=== PATIENT | male | born 1965 | race Caucasian/White ===

== ENCOUNTER 2019-08-20 14:22 | Outpatient (CLI) | payer OTHER, SELFPAY ==
--- NOTE | 2019-08-20 14:42 | ECG_ITS ---
Measurements Intervals [place] Rate: 76 P: 67 [place]: 150 QRS: 70 QRSD: 89 T: 66 QT: 376 QTc: 425 Interpretive Statements SINUS RHYTHM NORMAL ECG Electronically Signed On 08-20-2019 14:51:23 RETAIL MARKETING SPECIALIST by Tre Lemon D.O.
== END 2019-08-20 14:23 | disposition home or self-care (01) ==
PROVIDERS: PCP Internal Medicine; Visit Provider Internal Medicine
DX: I10 Essential (primary) hypertension (principal)
CPT/HCPCS: 93005

== ENCOUNTER 2019-12-05 09:08 | Outpatient (CLI) | payer OTHER, SELFPAY ==
--- NOTE | ~2019-12-05 | NM_ITS ---
EXAMINATION: NM jose stress w perfusion DATE: 12/05/2019 11:58 INDICATION: Atypical chest pain. TECHNIQUE: Rest images were obtained following intravenous administration of 10.5 mCi Tc99m tetrofosm in (Myoview). The patient was infused intravenously with Lexiscan (regadenoson). Then, 32.2 mCi Tc99m tetrofosmin (Myoview) was administered intravenously, and stress images were obtained. Data was anahi nstructed into short axis and horizontal and vertical long axis SPECT images. Gated SPECT images were also obtained. COMPARISON: Chest CT 02/07/2019 FINDINGS: There is no definite reversible or fixed perfusion abnormality to suggest ischemia or infar ction. There is no segmental wall motion abnormality. Left ventricular ejection fraction measures 6 2%. IMPRESSION: 1. No definite ischemia or infarct. 2. Normal left ventricular ejection fraction measuring 62%. Reviewed, dictated and finalized at location A.
--- NOTE | 2019-12-05 09:17 | EST_ITS ---
Patient Info Name: Denny Proctor Age: 54 years : 1965 Gender: Male Exam Date: 12/05/2019 10:25 AM Exam Location: [facility] Stress Patient Status: Outpatient Admit Date: 12/05/2019 Staff Ordering Physician: Addison Remy MD Attending Provider: Adidson Remy MD Exercise Technologist: Tianna Onofre RDCS Exercise Physician: Tre Lemon DO Exam Type: CA stress jose w NM Study Info Indications R07.89 - Other chest pain A regadenoson stress test was performed. Summary 1. 1. Negative lexiscan stress test for ischemic ST changes by ECG criteria. 2. 2. Stable hemodynamics throughout the test. 3. 3. Nuclear scan to follow and will be reported separately. Please correlate with it. 4. 4. Patient informed of the above results. Protocol: Lexiscan Stress ECG Details Stage: REST Duration (min): 5 min : 7 sec HR (bpm): 59 SBP (mmHg): 130 DBP (mmHg): 75 Stage: REST Duration (min): 6 min : 28 sec HR (bpm): 53 SBP (mmHg): 130 DBP (mmHg): 75 Stage: REST Duration (min): 24 min : 25 sec HR (bpm): 52 SBP (mmHg): 130 DBP (mmHg): 75 Stage: STAGE 1 Duration (min): 1 min : 0 sec HR (bpm): 53 SBP (mmHg): 107 DBP (mmHg): 79 Stage: RECOVERY Duration (min): 1 min : 0 sec HR (bpm): 78 SBP (mmHg): 107 DBP (mmHg): 79 Stage: RECOVERY Duration (min): 2 min : 0 sec HR (bpm): 76 SBP (mmHg): 116 DBP (mmHg): 73 Stage: RECOVERY Duration (min): 3 min : 0 sec HR (bpm): 69 SBP (mmHg): 116 DBP (mmHg): 67 Stage: RECOVERY Duration (min): 3 min : 4 sec HR (bpm): 70 SBP (mmHg): 116 DBP (mmHg): 67 Rest HR: 52 bpm Peak HR: 78 bpm Rest Sys BP: 130 mmHg Peak Sys BP: 116 mmHg Max Pred HR: 165 bpm % Max Pred HR: 47 % Target HR: 140 bpm Max RPP: 9,048 bpm*mmHg Termination Reason: Completed protocol Cardiac Symptoms: Shortness of breath Total Time: 1 min : 0 sec Rest Armando BP: 75 mmHg Peak Armando BP: 73 mmHg Total Dose: 0.4 mg Resting ECG Sinus bradycardia with borderline T wave in lateral leads. Stress ECG No ST changes. Arrhythmias None. Report Signatures
[2019-12-05 09:49] LABS: Mean Corpuscular HGB Conc 34.2 g/dl (32-36); Mean Corpuscular Volume 93.6 fl (80-100); Platelet Count Result 279 k/mm3 (150-375); Red Blood Count 4.06 M/mm3 (4.6-6.20); Red Cell Distribution Width 12.2 % (11.5-14.5); White Blood Count 8.5 K/mm3 (4.5-10.0)
[2019-12-05 10:12] LABS: Iron 80 ug/dL (49-181)
[2019-12-05 10:22] LABS: Percent Iron Saturation 23 % (20-50)
== END 2019-12-05 09:09 | disposition home or self-care (01) ==
PROVIDERS: PCP Internal Medicine; Visit Provider Internal Medicine
DX: E61.1 Iron deficiency (principal); R07.9 Chest pain, unspecified
CPT/HCPCS: 36415; 78452; 82728; 83540; 83550; 85027; 93017; A9502; J2785

== ENCOUNTER 2020-02-22 08:48 | Outpatient (CLI) | payer OTHER, SELFPAY ==
--- NOTE | ~2020-02-22 | MR_ITS ---
EXAMINATION: MR lumbar spine wo/w con EXAM DATE: 02/22/2020 11:00 INDICATION: Spinal cord disease, history of cyst removal from lumbar spine. Neck pain low back pain, left-sided numbness. TECHNIQUE: Multi-sequential, multiplanar MR images of the lumbar spine were obtained without contrast . Sagittal T1, T2, T2 fat saturation images. Axial T2 weighted images. Axial T1 weighted sequence. Patient was then injected with 20 mL Multihance intravenous contrast and reimaged. Postcontrast axi al and sagittal T1-weighted fat saturation sequences were obtained. Comparison is made to prior exami nation from 07/09/2014. FINDINGS: No evidence of prior lumbar surgery, making the thoracic finding most likely sequela from p rior cyst removal, surgery. Mild to moderate disc disease L4-5, mild at L2-3, L3-4 and L5-S1. The michelle tebral bodies are aligned in the AP dimension. The conus medullaris terminates at the L1/2 level and has normal signal intensity and morphology. There are no suspicious marrow signal abnormalities. Par aspinal soft tissue is unremarkable. There are no areas of abnormal enhancement on the post contrast images. Level by level evaluation: T11-12: Disc does not extend beyond the endplate margin. Facet arthropathy: Mild. Neural foraminal stenosis: No stenosis. Central canal stenosis: No stenosis. T12-L1: Disc does not extend beyond the endplate margin. Facet arthropathy: Mild. Neural foraminal stenosis: No stenosis. Central canal stenosis: No stenosis. L1-L2: Disc does not extend beyond the endplate margin. Facet arthropathy: Mild. Neural foraminal stenosis: Mild left. Central canal stenosis: No stenosis. L2-L3: There is a mild diffuse disc bulge. Facet arthropathy: Mild. Neural foraminal stenosis: Mild to moderate left, mild right. Central canal stenosis: Mild. L3-L4: There is a mild to moderate diffuse disc bulge. Facet arthropathy: Moderate right, mild to moderate left. Neural foraminal stenosis: Moderate bilateral. Central canal stenosis: Mild to moderate. L4-L5: There is a moderate to large diffuse disc bulge. Facet arthropathy: Moderate to severe right, moderate left. Neural foraminal stenosis: Moderate bilateral. Central canal stenosis: Moderate, bilateral lateral recess narrowing. L5-S1: There is a mild diffuse disc bulge. Facet arthropathy: Mild to moderate right, mild left. Neural foraminal stenosis: Mild to moderate right, mild left. Central canal stenosis: Mild. Difficult to appreciate any significant interval change compared to prior study. IMPRESSION: 1. No evidence of lumbar surgery. 2. Mild to moderate lumbar spondylosis. Reviewed, dictated and finalized at location A.
--- NOTE | ~2020-02-22 | MR_ITS ---
EXAMINATION: MR cervical spine wo/w con EXAM DATE: 02/22/2020 11:02 INDICATION: Spinal cord disease, history of cyst removal from lumbar spine. Neck pain low back pain, left-sided numbness. TECHNIQUE: Multi-sequential, multiplanar MR images of the cervical spine were obtained without contra st. Axial T2, axial T2 MERGE sequence. Sagittal T1, T2, T2 fat saturation images also obtained. Axi al T1 weighted sequence. Patient was then injected with 20 mL Multihance intravenous contrast and re imaged. Postcontrast axial and sagittal T1-weighted fat saturation sequences were obtained. Comparis on is made to prior examination from 02/03/2018. FINDINGS: There is moderate disc disease at C5-6. The vertebral body and disc heights are otherwise well maintained. The vertebral bodies are aligned in the AP dimension. The cervical spinal cord signa l intensity and intrinsic morphology is normal. Cervicomedullary junction is normal in appearance. Th ere are no suspicious marrow signal abnormalities. Paraspinal soft tissue is unremarkable. There are no areas of abnormal enhancement on the post contrast images. Level by level evaluation: C2-C3: Disc does not extend beyond the endplate margin. Uncovertebral joint arthropathy: Mild left. Facet joint arthropathy: Moderate left, mild right. Neural foraminal stenosis: Mild left. Central canal stenosis: No stenosis. C3-C4: Disc does not extend beyond the endplate margin. Uncovertebral joint arthropathy: None. Facet joint arthropathy: Mild to moderate left, mild right. Neural foraminal stenosis: Mild left. Central canal stenosis: No stenosis. C4-C5: There is a mild diffuse disc bulge. Uncovertebral joint arthropathy: None. Facet joint arthropathy: Mild to moderate bilateral. Neural foraminal stenosis: Mild bilateral. Central canal stenosis: Minimal. C5-C6: There is a mild diffuse disc bulge. Uncovertebral joint arthropathy: Moderate right, mild to moderate left. Facet joint arthropathy: Mild to moderate bilateral. Neural foraminal stenosis: Moderate right, mild to moderate left. Central canal stenosis: Mild. C6-C7: Disc does not extend beyond the endplate margin. Uncovertebral joint arthropathy: Mild bilateral. Facet joint arthropathy: None. Neural foraminal stenosis: No stenosis. Central canal stenosis: No stenosis. C7-T1: Disc does not extend beyond the endplate margin. Uncovertebral joint arthropathy: Mild bilateral. Facet joint arthropathy: Mild bilateral. Neural foraminal stenosis: Mild right. Central canal stenosis: No stenosis. Compared to prior study, the large extrusion from the C5-6 level with cephalad migration has essentia lly resolved. There has been increase in the loss of this disc height. Spondylosis otherwise appear s ignificantly changed. IMPRESSION: 1. Mild to moderate cervical spondylosis. Reviewed, dictated and finalized at location A.
--- NOTE | ~2020-02-22 | MR_ITS ---
EXAMINATION: MR thoracic spine wo/w con EXAM DATE: 02/22/2020 11:02 INDICATION: Spinal cord disease, history of cyst removal from lumbar spine. Neck pain low back pain, left-sided numbness. TECHNIQUE: Multi-sequential, multiplanar MR images of the thoracic spine were obtained without contra st. Sagittal T1, T2, T2 fat saturation, axial T2 weighted images reviewed. Axial T1 weighted sequenc e. Patient was then injected with 20 mL Multihance intravenous contrast and reimaged. Postcontrast axial and sagittal T1-weighted fat saturation sequences were obtained. There are no prior studies for comparison. Correlation was made with cervical and lumbar spines same date. FINDINGS: The thoracic spinal cord has some coarse alteration, deviates posteriorly at the T2 and T3 levels. At this level there is flow related signal within the CSF anterior to the spinal cord making arachnoid cyst unlikely. There is abnormal increased T2 signal within the cord centrally posterior to T3 and T4, where the cord does appear to be somewhat flattened, abnormal morphology. No expansion to suggest acute cord edema. On the postcontrast images, there is posterior epidural enhancement at the T3-4 level for about 2 cm segment. Overall, suspect that this is the location of patient's reported prior spinal canal cyst removal, and some postoperative scarring causing the enhancement. Dural rent or tear can also cause cord deviation, abnormal signal. There is mild diffuse thoracic disc disease. At T6-7 there is a small to moderate-sized very focal ri ght central protrusion/extrusion. There is small right central disc protrusion at T7-8 and small cent ral protrusion at T8-9. Spinal canal is only mildly narrowed at any given level. No more than mild th oracic neural foraminal stenosis. There is mild diffuse thoracic facet arthropathy. Paraspinal soft t issue is unremarkable. IMPRESSION: 1. Upper thoracic spinal cord course posterior deviation, mild flattening, some abnormal cord signal , likely location of prior canal cyst removal, although history states that was in the lumbar region. Can't exclude dural rent. 2. Small midthoracic protrusions, mild spondylosis overall. Reviewed, dictated and finalized at location A. IMPRESSION: 1. Upper thoracic spinal cord course posterior deviation, mild flattening, almas e abnormal cord signal, likely location of prior canal cyst removal, although h istory states that was in the lumbar region. Can't exclude dural rent. 2. Small midthoracic protrusions, mild spondylosis overall.
[2020-02-22 09:19] LABS: Estimated Glomerular Filt Rate > 60
== END 2020-02-22 08:49 | disposition home or self-care (01) ==
PROVIDERS: PCP Internal Medicine; Visit Provider Internal Medicine
DX: G95.9 Disease of spinal cord, unspecified (principal); M47.814 Spondylosis without myelopathy or radiculopathy, thoracic region; M47.816 Spondylosis without myelopathy or radiculopathy, lumbar region; M47.812 Spondylosis without myelopathy or radiculopathy, cervical region
CPT/HCPCS: 36415; 72156; 72157; 72158; A9577

== ENCOUNTER 2020-04-05 09:53 | Outpatient (CLI) | payer OTHER, SELFPAY ==
--- NOTE | ~2020-04-05 | CT_ITS ---
EXAMINATION: CT lung screening DATE: 04/05/2020 10:24 INDICATION: Nicotine dependence TECHNIQUE: Computed tomography (CT) of the chest was performed without intravenous contrast. The dose -length product was 165.85 mGy-cm. Automated exposure control and iterative reconstruction technique were employed. COMPARISON: CT dated 02/07/2019 FINDINGS: Heart size normal. No thoracic lymphadenopathy. There is atherosclerosis. No pleural or per icardial effusion. The upper abdomen is unremarkable. No focal airspace consolidation. No pneumothora x. No suspicious pulmonary nodules or masses. Mild emphysema. Mild thoracic spondylosis. No osteolyti c or osteoblastic lesions. IMPRESSION: 1. Lung-RADS category 1: Negative. Continue annual screening with noncontrast low-dose chest CT in 12 months. Reviewed, dictated and finalized at location A. IMPRESSION: 1. Lung-RADS category 1: Negative. Continue annual screening with noncontrast l ow-dose chest CT in 12 months.
== END 2020-04-05 09:54 | disposition home or self-care (01) ==
PROVIDERS: PCP Internal Medicine; Visit Provider Internal Medicine
DX: Z12.2 Encounter for screening for malignant neoplasm of respiratory organs (principal); Z87.891 Personal history of nicotine dependence
CPT/HCPCS: G0297

== ENCOUNTER 2020-04-07 14:10 | Outpatient (CLI) | payer OTHER, SELFPAY ==
[2020-04-07 14:39] LABS: Basophils Absolute Auto 0.1 K/mm3 (0.0-0.1); Basophils Percent Auto 0.7 % (0.2-1.2); Eosinophils Absolute Auto 0.1 K/mm3 (0-0.3); Eosinophils Percent Auto 1.2 % (0-4.4); Hematocrit 41.1 % (42.0-52.0); Hemoglobin 14.1 g/dL (14.0-18.0); Immature Granulocyte Absolute 0.02 K/mm3 (0.00-0.031); Immature Granulocyte Percent A 0.3 % (0-0.5); Lymphocytes Absolute Auto 2.37 K/mm3 (0.9-3.2); Lymphocytes Percent Auto 32.2 % (18.3-44.2); Mean Corpuscular HGB Conc 34.3 g/dl (32-36); Mean Corpuscular Hemoglobin 31.8 pg (26-34); Mean Corpuscular Volume 92.8 fl (80-100); Mean Platelet Volume 9.5 fl (7.4-10.4); Monocytes Absolute Auto 0.4 K/mm3 (0.1-0.6); Monocytes Percent Auto 5.2 % (2.6-8.5); Neutrophils Absolute Auto 4.5 K/mm3 (1.3-6.7); Neutrophils Percent Auto 60.4 % (45.5-73.1); Platelet Count Result 294 k/mm3 (150-375); Red Blood Count 4.43 M/mm3 (4.6-6.20); Red Cell Distribution Width 12.6 % (11.5-14.5); White Blood Count 7.4 K/mm3 (4.5-10.0)
[2020-04-07 14:47] LABS: Alanine Aminotransferase 14 U/L (4-50); Albumin Level 4.4 g/dL (3.5-5.1); Alkaline Phosphatase 65 U/L (38-126); Anion Gap 8 mmol/L (8-16); Aspartate Amino Transferase 19 U/L (17-59); Bilirubin,Total 0.5 mg/dL (0.2-1.3); Blood Urea Nitrogen 11 mg/dL (9-20); Calcium 9.6 mg/dL (8.4-10.2); Carbon Dioxide 29 mmol/L (22-30); Chloride 102 mmol/L (98-107); Cholesterol 160 mg/dL (0-200); Estimated Glomerular Filt Rate > 60; Glucose 103 mg/dL (75-110); HDL Direct 46 mg/dL; Potassium 4.1 mmol/L (3.4-5.0); Sodium 139 mmol/L (137-145); Triglycerides 120 mg/dL (<150)
[2020-04-07 14:58] LABS: LDL Cholesterol Direct 83 mg/dL
[2020-04-07 14:58] LABS: Add Urine Microscopic? NO; Appearance Urine Clear (Clear); Bilirubin Urine Negative (Negative); Blood Urine Negative (Negative); Color Urine Yellow (Yellow); Glucose Urine UA Negative (Negative); Ketones Urine Negative (Negative); Leukocyte Esterase Ur Negative LEU/UL (NEGATIVE); Nitrate Urine Negative (Negative); Protein Urine Negative (Negative); Specific Grav Ur 1.016 (1.001-1.035); Urobilinogen Urine Negative mg/dL (<2.0)
[2020-04-07 15:17] LABS: Prostate Specific Antigen 0.3 ng/mL (< OR = 4.0); Thyroid Stimulating Hormone 0.993 uIU/mL (0.465-4.680)
[2020-04-07 15:57] LABS: Iron 87 ug/dL (49-181)
[2020-04-07 16:06] LABS: Percent Iron Saturation 25 % (20-50)
[2020-04-07 16:37] LABS: Vitamin D 25 Hydroxy 22.1 ng/mL
== END 2020-04-07 14:11 | disposition home or self-care (01) ==
PROVIDERS: PCP Internal Medicine; Visit Provider Internal Medicine
DX: F41.9 Anxiety disorder, unspecified (principal); I10 Essential (primary) hypertension; E61.1 Iron deficiency; Z79.899 Other long term (current) drug therapy; E55.9 Vitamin D deficiency, unspecified; E78.2 Mixed hyperlipidemia; Z12.5 Encounter for screening for malignant neoplasm of prostate
CPT/HCPCS: 36415; 80053; 80061; 81003; 82306; 82728; 83540; 83550; 84153; 84443; 85025; G0103

== ENCOUNTER 2020-04-22 11:00 | Outpatient (RCR) | payer OTHER, SELFPAY ==
--- NOTE | 2020-03-24 17:03 | PTOPEVAL ---
Thank you for referring Denny Proctor to [facility].? The patient is scheduled to be seen for therapy? 2 x/week for 6 weeks. Please review, sign, date and return this plan of care VINOD. I agree with and certify that the following plan of care is medically necessary. Referring Physician Date Referring Provider: Dr. Deven Pan MD *PT Outpatient Evaluation Start: 03/24/20 14:09 Freq: Status: Active Protocol: Document 03/24/20 14:09 RADHA (Rec: 03/24/20 14:44 [facility] [email or web address]) Therapy Assessment Status Assessment Status Assessment Status Evaluation Outpatient Past Medical History Past Medical History Source of Past Medical History Patient,Recalled from Previous Visit, Confirmed with Patient /Family Neurological History Hx Neurological Disorders No Significant History Cardiovascular History Hx Hypertension Yes Respiratory History Hx Chronic Obstructive Pulmonary Disease Yes (COPD) Musculoskeletal History Hx Arthritis Yes Hx Back Pain Yes Hx Orthopedic Surgery Yes: [facility] Hx Other Musculoskeletal Disorders Yes: back surgery Psychosocial History Hx Anxiety Yes Pain History Has Past Pain Affected Your Daily Life Yes History of Long-Term Prescription Pain Yes Medication Use (Opiates) Evaluation Information Problem Diagnosis neck pain Onset chronic Subjective Information He reports chronic neck pain. Query Text:As Reported By Patient/ He reports increased pain with Family ADL's, lifting, driving, and sleeping. He is performing limited IADL's due to living with family. He performs exercise for his balance problems, but not his neck. Previous Treatments Previous Treatments For This Problem ~1 yr ago for balance Pain Assessment Timing of Pain Assessment Timing of Pain Assessment Assessment Pain Scale Pain Scale Used Numeric (1 - 10) Self Report Pain Assessment Bilateral Neck Reported Pain Level 8 Pain Description Aching,Sharp Pain Frequency Chronic,Continuous Lowest Pain Intensity 4 Greatest Pain Intensity 9 Pain Aggravating Factors Exercise/Activity Pain Behaviors None Pain Relief Interventions Used By Medication Patient Pain Score Pain Score 8: Self Report Cervical and Lumbar ROM Cervical ROM Cervical Flexion (0-60) 50 Query Text:Active in Degrees Cervical Extension (0-70)
--- NOTE | 2020-04-03 11:32 | PCPTNOTE ---
Patient did not show up for scheduled appointment this date.
--- NOTE | 2020-04-14 13:01 | PCPTNOTE ---
pt n/s n/c . Called pt he stated he had stomach issue and forgot to call.
--- NOTE | 2020-04-18 16:56 | PCPTNOTE ---
Patient called & cancelled scheduled appointment this date due to has to watch [email or web address].
--- NOTE | 2020-04-22 11:45 | PTOPEVAL ---
Thank you for referring Denny Proctor to [facility].? Denny has received 6 therapy visits from 03/24/20-04/22/20 to address his chronic neck pain. He demonstrates improved strength, range and pain with normal daily activities. He is indep with his HEP. He has achieved most of his therapy goals at this time. DC skilled therapy services with pt to cont with his HEP. Please review, sign, date and return this plan of care VINOD. I agree with and certify that the following plan of care is medically necessary. Referring Physician Date Referring Provider: Dr. Deven Pan MD *PT Outpatient Evaluation Start: 03/24/20 14:09 Freq: Status: Active Protocol: Document 04/22/20 11:03 CAP (Rec: 04/22/20 11:45 [facility] [id number]) Therapy Assessment Status Assessment Status Assessment Status Re-evaluation/Discharge Note Evaluation Information Problem Diagnosis neck pain Onset chronic Subjective Information REport he had to rebuild a Query Text:As Reported By Patient/ wall and help with lifting and Family carrying boxes for moving a family member this weekend. He reports pain increased to a 10/10 with the increased activities. He reports increased pain with ADL's, lifting, driving, and sleeping. He is performing limited IADL's due to living with family. He is performing his neck exercises daily. Reports improved neck motion with the exercises. REports he is sleeping better without waking due to pain. He is trying to perform good body mechanics with lifting task. Pain Assessment Timing of Pain Assessment Timing of Pain Assessment Re-assessment Pain Scale Pain Scale Used Numeric (1 - 10) Self Report Pain Assessment Bilateral Neck Reported Pain Level 6 Pain Description Aching,Sharp,Tightness Pain Frequency Chronic,Continuous Lowest Pain Intensity 5 Greatest Pain Intensity 10 Pain Aggravating Factors ADL's,Exercise/Activity, Lifting Pain Relief Interventions Used By Medication,TENS Patient Pain Score Pain Score 6: Self Report Cervical and Lumbar ROM Cervical ROM Cervical Flexion (0-60) 52 Query Text:Active in Degrees Cervical Extension (0-70) 60 Query Text:Active in Degrees Cervical
== END 2020-06-10 09:56 | disposition home or self-care (01) ==
LOC: ANHPT 11:00
PROVIDERS: PCP Internal Medicine
DX: M54.2 Cervicalgia (principal)
CPT/HCPCS: 97014; 97110; 97140; 97162; G0283

== ENCOUNTER 2020-07-30 15:43 | Outpatient (CLI) | payer OTHER, SELFPAY ==
--- NOTE | ~2020-07-30 | XR_ITS ---
EXAMINATION: XR shoulder LT min 2V DATE: 07/30/2020 16:54 INDICATION: Left shoulder pain. TECHNIQUE: 4 views of left shoulder were obtained. COMPARISON: None. FINDINGS: Bone alignment is normal. No fracture. There is mild osteoarthritis of glenohumeral joint a nd severe osteoarthritis of acromioclavicular joint. IMPRESSION: 1. Polyarticular osteoarthritis. Reviewed, dictated and finalized at location B. CONTROL SUPERVISOR
--- NOTE | ~2020-07-30 | XR_ITS ---
EXAMINATION:XR_[id number]_CR DATE: 07/30/2020 16:53 INDICATION: Neck pain TECHNIQUE: AP, lateral, and odontoid views of the cervical spine are provided. COMPARISON: 06/09/2015 FINDINGS: Alignment is normal. The odontoid is intact. No fracture is identified. The vertebral body heights are maintained. There is severe loss of intervertebral disc space height at C5-6 with interva l worsening since the comparison examination. Degenerative osteophytes project from the anterior endp lates of multiple vertebral bodies. There is moderate to severe facet and uncovertebral joint osteoar thritis. Prevertebral soft tissues are normal. IMPRESSION: 1. Severe cervical spondylosis at C5-6 with interval worsening. Reviewed, dictated and finalized at location A. LOGY PHYSICIAN
--- NOTE | ~2020-07-30 | XR_ITS ---
EXAMINATION: XR lumbar spine 2-3V DATE: 07/30/2020 16:53 INDICATION: Low back pain TECHNIQUE: Anteroposterior and lateral views of the lumbar spine, and cone-down lateral view of the l umbosacral junction were obtained. COMPARISON: MRI, 02/22/2020 FINDINGS: There is no fracture. The vertebral body heights and alignment are normal. There is moderat e loss of intervertebral disc space height at L4-5 and mild loss of intervertebral disc space height throughout the remainder of the lumbar spine. Small degenerative osteophytes project from the anterio r endplates of multiple vertebral bodies. There is moderate facet osteoarthritis of the lower lumbar spine. Phleboliths are noted in the pelvis. The bowel gas pattern is normal. There is calcified ather osclerosis. IMPRESSION: 1. Mild to moderate lumbar spondylosis without acute findings or significant interval change. Reviewed, dictated and finalized at location A. MOTIVE PORTER IMPRESSION: 1. Mild to moderate lumbar spondylosis without acute findings or significant in terval change.
--- NOTE | ~2020-07-30 | XR_ITS ---
EXAMINATION: XR shoulder RT min 2V DATE: 07/30/2020 16:53 INDICATION: Right shoulder pain. TECHNIQUE: 4 views of right shoulder were obtained. COMPARISON: None. FINDINGS: Bone alignment is normal. No fracture. There is mild osteoarthritis of glenohumeral joint a nd moderate osteoarthritis of acromioclavicular joint. IMPRESSION: 1. Polyarticular osteoarthritis. Reviewed, dictated and finalized at location B. ETIC TRAINER
== END 2020-07-30 15:44 | disposition home or self-care (01) ==
PROVIDERS: PCP Internal Medicine
DX: M50.30 Other cervical disc degeneration, unspecified cervical region (principal); M47.896 Other spondylosis, lumbar region; M47.892 Other spondylosis, cervical region; M19.012 Primary osteoarthritis, left shoulder; M19.011 Primary osteoarthritis, right shoulder
CPT/HCPCS: 72040; 72100; 73030

== ENCOUNTER 2021-03-24 13:51 | Outpatient (CLI) | payer MEDICARE, SELFPAY ==
--- NOTE | ~2021-03-24 | MR_ITS ---
EXAMINATION: MR cervical spine wo con EXAM DATE: 03/24/2021 14:54 INDICATION: Cervical pain. TECHNIQUE: Multi-sequential, multiplanar MR images of the cervical spine were obtained without contra st. Axial T2, axial T2 MERGE sequence. Sagittal T1, T2, T2 fat saturation images also obtained. Th ere is no prior study for comparison. FINDINGS: There is moderate loss of the C5-6 disc space. The vertebral body and disc heights are oth erwise well maintained. The vertebral bodies are aligned in the AP dimension. There are no suspicious marrow signal abnormalities. The spinal cord signal intensity and intrinsic morphology is normal. Ce rvicomedullary junction is normal in appearance. The upper thoracic laminectomies. Paraspinal soft ti ssue is unremarkable. Level by level evaluation: C2-C3: Disc does not extend beyond the endplate margin. Uncovertebral joint arthropathy: None. Facet joint arthropathy: Moderate to severe left, mild right. Neural foraminal stenosis: Mild left. Central canal stenosis: No stenosis. C3-C4: Disc does not extend beyond the endplate margin. Uncovertebral joint arthropathy: None. Facet joint arthropathy: Moderate bilateral. Neural foraminal stenosis: No stenosis. Central canal stenosis: No stenosis. C4-C5: There is a minimal diffuse disc bulge. Uncovertebral joint arthropathy: Mild bilateral. Facet joint arthropathy: Moderate bilateral. Neural foraminal stenosis: No stenosis. Central canal stenosis: No stenosis. C5-C6: There is a mild diffuse disc bulge. Uncovertebral joint arthropathy: Moderate bilateral. Facet joint arthropathy: Mild to moderate bilateral. Neural foraminal stenosis: Moderate to severe right, mild to moderate left. Central canal stenosis: Mild. C6-C7: There is a minimal diffuse disc bulge. Uncovertebral joint arthropathy: Mild to moderate left, mild right. Facet joint arthropathy: Moderate left, mild right. Neural foraminal stenosis: No stenosis. Central canal stenosis: No stenosis. C7-T1: Disc does not extend beyond the endplate margin. Uncovertebral joint arthropathy: Moderate left, mild right. Facet joint arthropathy: Mild bilateral. Neural foraminal stenosis: Mild bilateral. Central canal stenosis: No stenosis. IMPRESSION: 1. Cervical spondylosis with significant C5-6 right neural foraminal stenosis. 2. Less spondylosis other levels. Reviewed, dictated and finalized at location B.
--- NOTE | ~2021-03-24 | MR_ITS ---
EXAMINATION: MR lumbar spine wo [facility] EXAM DATE: 03/24/2021 14:54 INDICATION: Neck, back pain. TECHNIQUE: Multi-sequential, multiplanar MR images of the lumbar spine were obtained without contrast . Sagittal T1, T2, T2 fat saturation images. Axial T2 weighted images. Comparison is made to prior examination from 02/22/2020. FINDINGS: Mild to moderate disc disease L4-5, mild at L2-3, L3-4 and L5-S1. The vertebral bodies are aligned in the AP dimension. The conus medullaris terminates at the L1 level and has normal signal in tensity and morphology. There are no suspicious marrow signal abnormalities. Paraspinal soft tissue is unremarkable. Level by level evaluation: T12-L1: Disc does not extend beyond the endplate margin. Facet arthropathy: Mild. Neural foraminal stenosis: No stenosis. Central canal stenosis: No stenosis. L1-L2: Disc does not extend beyond the endplate margin. Facet arthropathy: Mild. Neural foraminal stenosis: Mild left. Central canal stenosis: No stenosis. L2-L3: There is a mild diffuse disc bulge. Facet arthropathy: Mild to moderate bilateral, could be partially fused on left. Neural foraminal stenosis: Mild to moderate bilateral. Central canal stenosis: Mild. L3-L4: There is a mild to moderate diffuse disc bulge. Facet arthropathy: Moderate right, mild to moderate left. Neural foraminal stenosis: Moderate bilateral. Central canal stenosis: Mild to moderate. L4-L5: There is a moderate to large diffuse disc bulge with annular fissure. Facet arthropathy: Moderate to severe right, moderate left. Neural foraminal stenosis: Moderate bilateral. Central canal stenosis: Moderate to severe, bilateral lateral recess narrowing. L5-S1: There is a mild diffuse disc bulge. Facet arthropathy: Mild to moderate right, mild left. Neural foraminal stenosis: Mild to moderate bilateral. Central canal stenosis: Mild. Difficult to appreciate any significant interval change compared to prior study. IMPRESSION: Moderate lower lumbar spondylosis. Reviewed, dictated and finalized at location B.
== END 2021-03-24 13:52 | disposition home or self-care (01) ==
PROVIDERS: PCP Internal Medicine
DX: M47.813 Spondylosis without myelopathy or radiculopathy, cervicothoracic region (principal); M48.03 Spinal stenosis, cervicothoracic region; M47.815 Spondylosis without myelopathy or radiculopathy, thoracolumbar region; M48.05 Spinal stenosis, thoracolumbar region; M47.817 Spondylosis without myelopathy or radiculopathy, lumbosacral region; M48.07 Spinal stenosis, lumbosacral region
CPT/HCPCS: 72141; 72148

== ENCOUNTER 2021-04-24 13:51 | Outpatient (CLI) | payer MEDICARE, SELFPAY ==
--- NOTE | ~2021-04-24 | US_ITS ---
EXAMINATION: US arterial ankle brachial ind DATE: 04/24/2021 14:40 INDICATION: Peripheral vascular disease TECHNIQUE: Segmental pressures and plethysmographic and Doppler waveforms of the brachial and lower e xtremity arteries were obtained. COMPARISON: None. FINDINGS: Right and left brachial artery pressures of 119 mm Hg and 121 mm Hg, respectively, are concordant (no rmal difference <= 30 mmHg). The right ankle-brachial index (SUZANNE) is 1.17 (normal >= 0.9-1.0). The right great toe-brachial index (TBI) is 0.96 (normal >= 0.65). Arterial Doppler waveforms are biphasic with brisk systolic upstrokes at both the right posterior tibial and dorsalis pedis arteries. The left SUZANNE is 1.17. The left TBI is 1.03. Arterial Doppler waveforms are biphasic with brisk systol ic upstrokes of both the left posterior tibial and dorsalis pedis arteries. IMPRESSION: 1. No significant arterial occlusive disease with normal bilateral ABIs and TBIs. Reviewed, dictated and finalized at location A. IMPRESSION: 1. No significant arterial occlusive disease with normal bilateral ABIs and TBI s.
== END 2021-04-24 13:52 | disposition home or self-care (01) ==
PROVIDERS: PCP Internal Medicine; Visit Provider Internal Medicine
DX: I73.9 Peripheral vascular disease, unspecified (principal)
CPT/HCPCS: 93922

== ENCOUNTER 2021-10-17 12:30 | Outpatient (CLI) | payer MEDICARE, SELFPAY ==
[2021-10-17 13:42] LABS: Cholesterol 182 mg/dL (0-200); HDL Direct 57 mg/dL; Triglycerides 118 mg/dL (<150)
[2021-10-17 13:53] LABS: LDL Cholesterol Direct 84 mg/dL
== END 2021-10-17 12:31 | disposition home or self-care (01) ==
LOC: ANHLAB 12:31
PROVIDERS: PCP Internal Medicine; Visit Provider Internal Medicine
DX: E78.2 Mixed hyperlipidemia (principal)
CPT/HCPCS: 36415; 80061

== ENCOUNTER 2021-10-19 09:34 | Outpatient (CLI) | payer MEDICARE, SELFPAY ==
--- NOTE | ~2021-10-19 | CT_ITS ---
EXAMINATION:CT lung screening DATE: 10/19/2021 10:05 INDICATION: Personal history of nicotine dependence. Current smoker with 44 pack year history. TECHNIQUE: Computed tomography (CT) of the chest was performed without intravenous contrast. Automate d exposure control and iterative reconstruction technique were employed. The dose-length product (DLP ) was 145.24 mGy-cm. COMPARISON: Chest CT 04/05/2020 FINDINGS: There is mild emphysema. There is mild atelectasis bilaterally. No pleural effusion. The he art size is normal. There are coronary artery calcifications. No pericardial effusion. There is mild thoracic spondylosis. IMPRESSION: 1. Lung-RADS category 1: Negative. Continue annual screening with noncontrast low-dose chest CT in 12 months. Reviewed, dictated and finalized at location A. IMPRESSION: 1. Lung-RADS category 1: Negative. Continue annual screening with noncontrast l ow-dose chest CT in 12 months.
== END 2021-10-19 09:35 | disposition home or self-care (01) ==
PROVIDERS: PCP Internal Medicine; Visit Provider Physician Assistant
DX: Z12.2 Encounter for screening for malignant neoplasm of respiratory organs (principal); Z87.891 Personal history of nicotine dependence
CPT/HCPCS: 71271

== ENCOUNTER 2021-12-11 00:04 | Observation (INO) | payer MEDICARE, SELFPAY ==
[2021-12-11] VITALS (27 sets, daily range): BP systolic 112–146; BP diastolic 58–88; PULSE 75–133; RESP 16–36; TEMP 36.6–37.8; O2SAT 88–100; BMI 32.3
--- NOTE | ~2021-12-11 | XR_ITS ---
EXAMINATION: XR chest 1V portable 12/11/2021 01:09 INDICATION: Shortness of breath PROCEDURE: 2 view chest COMPARISON: No prior studies for comparison. FINDINGS: The lungs are clear. The cardiomediastinal silhouette is within normal limits. There are no pleural effusions. There is no pneumothorax suspected. IMPRESSION: 1: NO ACUTE CARDIOPULMONARY DISEASE. Reviewed, dictated and finalized at location A.
--- NOTE | 2021-12-11 00:40 | ECG_ITS ---
Measurements Intervals [place] Rate: 110 P: 71 WV: 145 QRS: 84 QRSD: 85 T: 61 QT: 311 QTc: 422 Interpretive Statements SINUS TACHYCARDIA POSSIBLE LEFT ATRIAL ENLARGEMENT [-0.1mV P-WAVE IN V1/V2] BORDERLINE ECG COMPARED TO ECG 08/20/2019 14:48:07 SINUS TACHYCARDIA NOW PRESENT Electronically Signed On 12-11-2021 16:55:30 CDT by Bandar Jean-Baptiste M.D.
[2021-12-11] MEDS: ALBUTEROL SULFATE NEB 2.5 MG/3 ML INH 15 MG INHALATION (00:49)
[2021-12-11] MEDS: IPRATROPIUM BR 0.02% INH SOLN 0.5 MG/2.5 ML VIAL 1.5 MG INHALATION (00:49)
[2021-12-11 00:50] LABS: Basophils Absolute Auto 0.1 K/mm3 (0.0-0.1); Basophils Percent Auto 0.4 % (0.2-1.2); Eosinophils Absolute Auto 0.1 K/mm3 (0-0.3); Eosinophils Percent Auto 0.5 % (0-4.4); Hematocrit 41.1 % (42.0-52.0); Hemoglobin 14.3 g/dL (14.0-18.0); Immature Granulocyte Absolute 0.06 K/mm3 (0.00-0.031); Immature Granulocyte Percent A 0.4 % (0-0.5); Lymphocytes Absolute Auto 1.25 K/mm3 (0.9-3.2); Lymphocytes Percent Auto 7.7 % (18.3-44.2); Mean Corpuscular HGB Conc 34.8 g/dl (32-36); Mean Corpuscular Hemoglobin 31.8 pg (26-34); Mean Corpuscular Volume 91.5 fl (80-100); Monocytes Absolute Auto 0.8 K/mm3 (0.1-0.6); Monocytes Percent Auto 5.1 % (2.6-8.5); Neutrophils Absolute Auto 13.9 K/mm3 (1.3-6.7); Neutrophils Percent Auto 85.9 % (45.5-73.1); Platelet Count Result 289 k/mm3 (150-375); Red Blood Count 4.49 M/mm3 (4.6-6.20); White Blood Count 16.2 K/mm3 (4.5-10.0)
[2021-12-11 01:00] LABS: Alanine Aminotransferase 18 U/L (6-50); Albumin Level 4.8 g/dL (3.5-5.1); Alkaline Phosphatase 84 U/L (38-126); Anion Gap 8 mmol/L (8-16); Aspartate Amino Transferase 24 U/L (17-59); Bilirubin,Total 1.1 mg/dL (0.2-1.3); Blood Urea Nitrogen 8 mg/dL (9-20); Calcium 9.3 mg/dL (8.4-10.2); Carbon Dioxide 25 mmol/L (22-30); Chloride 100 mmol/L (98-107); Estimated CRCL calculation 110 ml/min; Estimated Glomerular Filt Rate > 60; Glucose 100 mg/dL (65-110); Potassium 3.5 mmol/L (3.4-5.0); Sodium 133 mmol/L (137-145)
--- NOTE | 2021-12-11 01:00 | ED.SOB ---
HPI - SOB/Dyspnea General Chief Complaint: Shortness of Breath/Dyspnea Stated Complaint: SOB Time Seen by Provider: 12/11/21 00:29 History of Present Illness HPI Narrative: Patient is a 56-year-old male who presents ER with shortness of breath. Worsening today. Initially noticed some postnasal drip and sore throat yesterday. Began having fevers. No chest pain or chest pressure. Had a negative COVID swab at home. Patient is a smoker. He is found no alleviating factors. Some chest tightness related to this episode. Related Data Home Medications Medication Instructions Recorded Confirmed sildenafil 50 mg tablet (Viagra) 50 mg PO DAILY PRN Sexual Activity 05/28/19 12/11/21 amlodipine 10 mg tablet 10 mg PO DAILY 12/11/21 12/11/21 atorvastatin 20 mg tablet 20 mg PO DAILY 12/11/21 12/11/21 hydrocodone 7.5 mg-acetaminophen 1 tablet PO Q12H PRN Back Pain 12/11/21 12/11/21 325 mg tablet Allergies Allergy/AdvReac Type Severity Reaction Status Date / Time cefadroxil Allergy Mild Hives Verified 12/11/21 05:54 codeine Allergy Mild Hives Verified 12/11/21 05:54 Review of Systems Review of Systems: All systems reviewed & are unremarkable except as noted in HPI and below Constitutional: Constitutional: Denies chills, Reports fatigue and Reports fever(s) ENT: Denies nasal congestion and Denies sore throat Cardiovascular: Cardiovascular: Reports chest pain, Denies rapid heart rate and Denies radiating jaw, neck or arm pain Respiratory: Respiratory: Denies chest congestion, Reports cough, Reports dyspnea and Reports wheezing Gastrointestinal: Gastrointestinal: Denies abdominal pain, Denies nausea and Denies vomiting Neurologic: Denies focal weakness and Denies numbness PMFSH Past Medical History Medical History (Updated 12/11/21 @ 06:33 by Yakov Zelaya MD) Anemia Anxiety Chronic obstructive pulmonary disease Essential hypertension Mixed hyperlipidemia Neuropathy Pulmonary embolism without acute cor pulmonale Surgical History Surgical History (Updated 12/11/21 @ 06:32 by Yakov Zelaya MD) History of laminectomy Family History Family History (Updated 12/11/21 @ 05:56 by Jen Rodriguez RN) Father Carcinoma of colon Social History Social History Smoking packs per day: 1 Smoking cigarettes per day: 20.0 Years smoked: 45 Smoking pack-years: 45.00 Smoking status: Current every day smoker Tobacco type: cigarettes Second hand tobacco smoke exposure: Yes Alcohol intake: former Substance use: never Spiritual care concerns: No Exam Narrative: GENERAL: Ill-appearing, well-nourished, and in mild distress. HEAD: Normocephalic, atraumatic. ENT: Mucous membranes moist. CHEST: Coarse Rales throughout inspiratory and expiratory. Mild respiratory distress. HEART: Tachycardic and regular. Normal peripheral pulses. ABDOMEN: Soft, nontender, nondistended. EXTREMITIES: Normal range of motion. No edema. SKIN: Warm, dry, no rash. NEURO: Alert and oriented x3. PSYCH: Normal mood and affect. Course Course Emergency Course: Admit to hospitalist service. Patient started on Levaquin. We will also give steroids and scheduled nebulizer treatments. Vital Signs Vital signs: Vital Signs Temperature 100.1 F H 12/11/21 00:09 Pulse Rate 133 H 12/11/21 00:09 Respiratory Rate 26 H 12/11/21 00:09 Blood Pressure 134/80 12/11/21 00:09 Pulse Oximetry 88 L 12/11/21 00:09 Oxygen Delivery Room Air 12/11/21 00:09 Temperature 100 F H 12/11/21 06:17 Pulse Rate 95 12/11/21 05:20 Respiratory Rate 26 H 12/11/21 05:20 Blood Pressure 116/62 12/11/21 05:20 Pulse Oximetry 96 12/11/21 06:23 Oxygen Delivery Nasal Cannula 12/11/21 06:23 Oxygen Flow Rate 4 12/11/21 06:23 MDM - SOB/Dyspnea Lab Data Result diagrams: 12/11/21 00:42 12/11/21 00:42 Labs: Lab Results
[2021-12-11 01:11] LABS: Troponin I < 0.012 ng/mL (0.000-0.034)
[2021-12-11 02:15] LABS: Influenza A QL RT-PCR Negative (Negative); Influenza B QL RT-PCR Negative (Negative); SARS-CoV-2 RNA PCR Negative
[2021-12-11] MEDS: methylPREDNISolone SOD SUCC 125 MG VIAL IV PUSH (04:09)
--- NOTE | 2021-12-11 05:53 | ADMGEN ---
This patient, Denny Proctor, was admitted to [facility] Surg Room 324-02. Patient/family oriented to hospital policies and general routines including ID bracelet, bed and alarms, visiting hours, pain management, procedures, bathroom and other care routines, personal items, smoking policy, room service/diet, and visiting hours. Information on how to activate the Rapid Response Team has been discussed. Patient/Family are encouraged to report perceived risks to care and to ask questions if they do not understand what they are told or what they should do.
[2021-12-11] MEDS: ACETAMINOPHEN 325 MG TABLET 650 MG PO ×2 (06:17→15:51)
[2021-12-11] MEDS: IPRATROPIUM BR 0.02% INH SOLN 0.5 MG/2.5 ML VIAL INHALATION ×3 (07:31→20:44)
[2021-12-11] MEDS: ALBUTEROL SULFATE NEB 2.5 MG/3 ML INH 5 MG INHALATION ×3 (07:31→20:44)
--- NOTE | 2021-12-11 08:15 | PM.IMHP ---
H&P: HPI History of Present Illness Date/Time: 12/11/21 0815 Chief Complaint: Shortness of breath Narrative: Patient is a 56-year-old male with a past medical history hyperlipidemia, hypertension, COPD who presented to the ED with complaints of shortness of breath. Patient stated that this all started on Tuesday when he was having shortness of breath with activity. Patient stated that he has been very congested. He is also complaining of aches and pains throughout his body. He stated that he did not have chest pain however he did have pressure no palpitations. Oxygen levels were low upon arrival patient is currently on 3 L nasal cannula satting 98%. Patient stated that he has had a decline in appetite since he has been sick. He also complains of increased wheezes. He was kind of confusing about a cough he stated that he has not had a cough however that he coughed and stated that he has had that he can produce a sputum culture. He is also complaining of sweats not accompanied with fever. Patient denies any oxygen use at home. He denies any headaches, visual changes, dizziness, weakness, fatigue, abdominal pain, nausea, vomiting, diarrhea or constipation. WBCs elevated at 16.2. Patient has been started on IV Levaquin in the ED which will be continued at this time. Patient is being admitted to the hospitalist service under observation at this time Review of Systems Review of Systems: All systems reviewed & are unremarkable except as noted in HPI and below PMFSH Past Medical History Medical History (Updated 12/11/21 @ 10:06 by ROBYN Montana) Anemia Anxiety Chronic obstructive pulmonary disease Essential hypertension Mixed hyperlipidemia Neuropathy Pulmonary embolism without acute cor pulmonale Surgical History Surgical History (Updated 12/11/21 @ 10:02 by ROBYN Montana) H/O hernia repair History of laminectomy Family History Family History Father Carcinoma of colon Mother Heart disease Hypertension Social History Social History (Updated 12/11/21 @ 10:03 by ROBYN Montana) Social History: Patient currently lives with his mother and is on disability. Patient states that he does not have any pets and that his mother would be his surrogate if he was unable to make his own decisions. Patient wishes to be a full code at this time Smoking packs per day: 1 Smoking cigarettes per day: 20.0 Years smoked: 45 Smoking pack-years: 45.00 Smoking status: Current every day smoker Tobacco type: cigarettes Second hand tobacco smoke exposure: Yes Alcohol intake: former Substance use: never Living arrangements: with family Occupation/Education: other Additional occupation/education comments: Disability Gender identity (if verbalized by the patient): Male Sexual Orientation (if Verbalized by the Patient): Straight or Heterosexual Spiritual care concerns: No Agree to blood products: Yes Meds Home Medications and Allergies Home Medications Medication Instructions Recorded Confirmed Type sildenafil 50 mg tablet (Viagra) 50 mg PO DAILY PRN Sexual Activity 05/28/19 12/11/21 History umeclidinium 62.5 mcg-vilanterol 1 inh inhalation Q24H #60 ea 08/14/21 12/11/21 Rx 25 mcg/actuation powdr for inhalation (Anoro Ellipta) oxybutynin chloride 5 mg tablet 5 mg PO DAILY #90 tabs 10/07/21 12/11/21 Rx albuterol sulfate 90 mcg/actuation 1 - 2 puff inhalation Q4-6H PRN 10/09/21 12/11/21 Rx aerosol inhaler shortness of breath or wheezing #8.5 grams gabapentin 300 mg capsule 300 mg PO TID 90 days #270 caps 10/22/21 12/11/21 Rx amlodipine 10 mg tablet 10 mg PO DAILY 12/11/21 12/11/21 History atorvastatin 20 mg tablet 20 mg PO DAILY 12/11/21 12/11/21 History hydrocodone 7.5 mg-acetaminophen 1 tablet PO Q12H PRN Back Pain 12/11/21 12/11/21 History 325 mg tablet Allergies Allergy/AdvReac Type Sever
[2021-12-11] MEDS: ATORVASTATIN 20 MG TABLET PO (10:29)
[2021-12-11] MEDS: GABAPENTIN 300 MG CAPSULE PO ×3 (10:29→17:17)
[2021-12-11] MEDS: amLODIPine BESYLATE 5 MG TABLET 10 MG PO (10:29)
[2021-12-11] MEDS: OXYBUTYNIN CHLORIDE 5 MG TABLET PO (10:29)
[2021-12-11 11:11] LABS: Troponin I < 0.012 ng/mL (0.000-0.034)
[2021-12-11] MEDS: methylPREDNISolone SOD SUCC 40 MG VIAL IV PUSH (17:18)
[2021-12-11] MEDS: HYDROcodone/acetaminophen (*CRX) 7.5-325 MG TABLET 1 TAB PO (20:39)
--- NOTE | 2021-12-11 22:27 | PCCCNOTE ---
On 12/11/21, the student, Myah Zavala, provided care and completed [facility] documentation on this patient. I have reviewed the student's documentation and agree with the findings.
--- NOTE | 2021-12-12 00:01 | PC.NURSE ---
attempted to reach Dr. Burr regarding pt's request for heartburn medication at [phone] and [phone] but unable to reach. will continue to call back every 15 minutes
--- NOTE | 2021-12-12 00:09 | PC.NURSE ---
reached Dr. Burr at 0010
[2021-12-12] MEDS: CALCIUM CARBONATE (TUMS) 500 MG (200 MG ELEMENTAL) PO ×2 (00:47→05:26)
[2021-12-12] MEDS: IPRATROPIUM BR 0.02% INH SOLN 0.5 MG/2.5 ML VIAL INHALATION ×2 (02:47→09:00)
[2021-12-12] MEDS: ALBUTEROL SULFATE NEB 2.5 MG/3 ML INH 5 MG INHALATION ×2 (02:47→08:59)
[2021-12-12 02:48] VITALS: PULSE 71; RESP 18
[2021-12-12] MEDS: ACETAMINOPHEN 325 MG TABLET 650 MG PO (03:46)
[2021-12-12] MEDS: methylPREDNISolone SOD SUCC 40 MG VIAL IV PUSH (05:08)
[2021-12-12] MEDS: PANTOPRAZOLE SODIUM IV 40 MG VIAL IV PUSH (05:27)
[2021-12-12 05:39] VITALS: BP 114/75; PULSE 86; RESP 16; TEMP 36.4; O2SAT 94
[2021-12-12 06:12] LABS: Basophils Percent Auto 0.1 % (0.2-1.2); Hemoglobin 12.7 g/dL (14.0-18.0); Immature Granulocyte Absolute 0.11 K/mm3 (0.00-0.031); Immature Granulocyte Percent A 0.8 % (0-0.5); Lymphocytes Absolute Auto 0.94 K/mm3 (0.9-3.2); Mean Corpuscular HGB Conc 34.3 g/dl (32-36); Mean Corpuscular Hemoglobin 31.8 pg (26-34); Mean Corpuscular Volume 92.7 fl (80-100); Mean Platelet Volume 9.3 fl (7.4-10.4); Monocytes Absolute Auto 0.6 K/mm3 (0.1-0.6); Monocytes Percent Auto 4.4 % (2.6-8.5); Neutrophils Absolute Auto 11.8 K/mm3 (1.3-6.7); Neutrophils Percent Auto 87.7 % (45.5-73.1); Platelet Count Result 285 k/mm3 (150-375); Red Blood Count 3.99 M/mm3 (4.6-6.20); Red Cell Distribution Width 12.7 % (11.5-14.5); White Blood Count 13.5 K/mm3 (4.5-10.0)
[2021-12-12 06:49] LABS: Alanine Aminotransferase 18 U/L (6-50); Albumin Level 4.1 g/dL (3.5-5.1); Alkaline Phosphatase 73 U/L (38-126); Anion Gap 7 mmol/L (8-16); Aspartate Amino Transferase 22 U/L (17-59); Bilirubin,Total 0.4 mg/dL (0.2-1.3); Blood Urea Nitrogen 15 mg/dL (9-20); Calcium 9.3 mg/dL (8.4-10.2); Carbon Dioxide 27 mmol/L (22-30); Chloride 97 mmol/L (98-107); Estimated CRCL calculation 109 ml/min; Estimated Glomerular Filt Rate > 60; Glucose 147 mg/dL (65-110); Magnesium 1.9 mg/dL (1.6-2.3); Potassium 3.5 mmol/L (3.4-5.0); Sodium 131 mmol/L (137-145)
--- NOTE | 2021-12-12 07:36 | P.PNIM_ITS ---
Progress Note: A&P Assessment and Plan (1) COPD exacerbation: Code(s): J44.1 - Chronic obstructive pulmonary disease with (acute) exacerbation Status: Acute Assessment and Plan: * Increase in wheezes, sputum, and shortness of breath * Supplemental oxygen, wean to maintain saturations >90% * Chest xray shows no acute abnormality * Steroids 40mg IV Q12H, change to PO prednisone 40mg x 4 doses * IV Levaquin day 2 * WBC elevated, and trending down, currently 13.5 * Sputum culture ordered * Continue neb treatments * Restart home inhalers when there is significant improvement * Smoking cessation counselling (2) Neuropathy: Code(s): G62.9 - Polyneuropathy, unspecified Status: Acute Assessment and Plan: * Continue gabapentin from home * Trend symptoms * Adjust therapy as indicated (3) Hypertension: Code(s): I10 - Essential (primary) hypertension Status: Acute Assessment and Plan: * BP 114/75 * Continue home amlodipine * Trend blood pressure * adjust therapy as indicated (4) Mixed hyperlipidemia: Code(s): E78.2 - Mixed hyperlipidemia Status: Acute Assessment and Plan: * Continue home atorvastatin * Triglycerides 118, Cholesterol 182, LDL 84, HDL 57 from 11/16/21 * Seems controlled (5) Chronic pain disorder: Code(s): G89.4 - Chronic pain syndrome Status: Acute Assessment and Plan: * Continue home [place] * Pain seems stable at this time (6) Tobacco abuse: Code(s): Z72.0 - Tobacco use Status: Acute Assessment and Plan: * Smoking cessation education provided * Nicotine patch Time Spent With Patient Time with patient: Greater than 35 minutes Subjective Date/time seen: 12/12/21 07:36 Interval history: 12/12/21 12/11/21? 0815 Patient is a 56-year-old male with a past medical history hyperlipidemia, hypertension, COPD who presented to the ED with complaints of shortness of breath.? Patient stated that this all started on Tuesday when he was having shortness of breath with activity.? Patient stated that he has been very congested.? He is also complaining of aches and pains throughout his body.? He stated that he did not have chest pain however he did have pressure no palpitations.? Oxygen levels were low upon arrival patient is currently on 3 L nasal cannula satting 98%.? Patient stated that he has had a decline in appetite since he has been sick.? He also complains of increased wheezes.? He was kind of confusing about a cough he stated that he has not had a cough however that he coughed and stated that he has had that he can produce a sputum culture.? He is also complaining of sweats not accompanied with fever.? Patient denies any oxygen use at home.? He denies any headaches, visual changes, dizziness, weaknes s, fatigue, abdominal pain, nausea, vomiting, diarrhea or constipation.? WBCs elevated at 16.2.? Patient has been started on IV Levaquin in the ED which will be continued at this time. Review of Systems Review of Systems: All systems reviewed & are unremarkable except as noted in HPI and below Exam Const: General: cooperative, no acute distress, well developed, alert, awake, ill appearing and tired appearing Nutritional Appearance: well nourished Orientation/consciousness: oriented to person, oriented to place, oriented
--- NOTE | 2021-12-12 07:36 | PM.IMPN ---
Progress Note: A&P Assessment and Plan (1) COPD exacerbation: Code(s): J44.1 - Chronic obstructive pulmonary disease with (acute) exacerbation Status: Acute Assessment and Plan: Increase in wheezes, sputum, and shortness of breath Supplemental oxygen, wean to maintain saturations >90% Chest xray shows no acute abnormality Steroids 40mg IV Q12H, change to PO prednisone 40mg x 4 doses IV Levaquin day 2 WBC elevated, and trending down, currently 13.5 Sputum culture ordered Continue neb treatments Restart home inhalers when there is significant improvement Smoking cessation counselling (2) Neuropathy: Code(s): G62.9 - Polyneuropathy, unspecified Status: Acute Assessment and Plan: Continue gabapentin from home Trend symptoms Adjust therapy as indicated (3) Hypertension: Code(s): I10 - Essential (primary) hypertension Status: Acute Assessment and Plan: BP 114/75 Continue home amlodipine Trend blood pressure adjust therapy as indicated (4) Mixed hyperlipidemia: Code(s): E78.2 - Mixed hyperlipidemia Status: Acute Assessment and Plan: Continue home atorvastatin Triglycerides 118, Cholesterol 182, LDL 84, HDL 57 from 11/16/21 Seems controlled (5) Chronic pain disorder: Code(s): G89.4 - Chronic pain syndrome Status: Acute Assessment and Plan: Continue home [place] Pain seems stable at this time (6) Tobacco abuse: Code(s): Z72.0 - Tobacco use Status: Acute Assessment and Plan: Smoking cessation education provided Nicotine patch Time Spent With Patient Time with patient: Greater than 35 minutes Subjective Date/time seen: 12/12/21 07:36 Interval history: 12/12/21 12/11/21? 0815 Patient is a 56-year-old male with a past medical history hyperlipidemia, hypertension, COPD who presented to the ED with complaints of shortness of breath.? Patient stated that this all started on Tuesday when he was having shortness of breath with activity.? Patient stated that he has been very congested.? He is also complaining of aches and pains throughout his body.? He stated that he did not have chest pain however he did have pressure no palpitations.? Oxygen levels were low upon arrival patient is currently on 3 L nasal cannula satting 98%.? Patient stated that he has had a decline in appetite since he has been sick.? He also complains of increased wheezes.? He was kind of confusing about a cough he stated that he has not had a cough however that he coughed and stated that he has had that he can produce a sputum culture.? He is also complaining of sweats not accompanied with fever.? Patient denies any oxygen use at home.? He denies any headaches, visual changes, dizziness, weakness, fatigue, abdominal pain, nausea, vomiting, diarrhea or constipation.? WBCs elevated at 16.2.? Patient has been started on IV Levaquin in the ED which will be continued at this time. Review of Systems Review of Systems: All systems reviewed & are unremarkable except as noted in HPI and below Exam Const: General: cooperative, no acute distress, well developed, alert, awake, ill appearing and tired appearing Nutritional Appearance: well nourished Orientation/consciousness: oriented to person, oriented to place, oriented to time and patient oriented x3 Limitations: no limitations HENMT: Head: normal to inspection Ears: hearing grossly normal bilaterally General nose exam: Normal external nose present Mouth: Yes Normal oral and palatal mucosa present, Yes lip normal and Yes tongue normal Teeth and gingiva: abnormal tooth and associated gingiva and poor dentition Other: Is congested Eyes: General: appearance normal, both eyes and all related structures Pupils: Equal, round and reactive pupils present Neck: Neck: normal visual inspection, full ROM, tra
[2021-12-12 08:00] VITALS: PULSE 76; RESP 18; O2SAT 95
--- NOTE | 2021-12-12 08:45 | P.DS_ITS ---
DS: Admitting Diagnosis Discharge Date 12/12/21 0845 Admitting Diagnosis COPD Exacerbation DS: Discharge Diagnosis Discharge Diagnosis (1) COPD exacerbation: Code(s): J44.1 - Chronic obstructive pulmonary disease with (acute) exacerbation Status: Acute Assessment and Plan: * Increase in wheezes, sputum, and shortness of breath * Supplemental oxygen, wean to maintain saturations >90% * Chest xray shows no acute abnormality * Steroids 40mg IV Q12H, change to PO prednisone 40mg x 4 doses * IV Levaquin day 2 * WBC elevated, and trending down, currently 13.5 * Sputum culture ordered * changed nebs to home inhaler * Restart home inhalers when there is significant improvement * Smoking cessation counselling (2) Neuropathy: Code(s): G62.9 - Polyneuropathy, unspecified Status: Acute Assessment and Plan: * Continue gabapentin from home * Trend symptoms * Adjust therapy as indicated (3) Hypertension: Code(s): I10 - Essential (primary) hypertension Status: Acute Assessment and Plan: * BP 114/75 * Continue home amlodipine * Trend blood pressure * adjust therapy as indicated (4) Mixed hyperlipidemia: Code(s): E78.2 - Mixed hyperlipidemia Status: Acute Assessment and Plan: * Continue home atorvastatin * Triglycerides 118, Cholesterol 182, LDL 84, HDL 57 from 11/16/21 * Seems controlled (5) Chronic pain disorder: Code(s): G89.4 - Chronic pain syndrome Status: Acute Assessment and Plan: * Continue home [place] * Pain seems stable at this time (6) Tobacco abuse: Code(s): Z72.0 - Tobacco use Status: Acute Assessment and Plan: * Smoking cessation education provided * Nicotine patch DS: Summary Hospital Course Hospital Course: Patient is a 56-year-old male with a past medical history of COPD, anemia, hypertension, hyperlipidemia who presented to ED with worsening shortness of breath. Upon arrival to the ED patient was noted to have a saturation in the 80s and was placed with 4 L nasal cannula. Patient was started on IV steroids and antibiotics. White count was also elevated however is trending down as currently 13.5 today. Patient stated that he has been eating any feels a lot better. Patient does have a little cough and is producing white sputum. Patient also states that he did not get much sleep was up all night due to headache and heartburn. He denies any chest pain, shortness of breath, nausea, vomiting, diarrhea, constipation, weakness or fatigue. Patient has been successfully weaned off of oxygen and is ready to go home. he will need continue steroids for the next 4 days along with antibiotics. Patient is stable for discharge at this time including labs and vital signs. Status at Discharge Functional status at discharge: independent ambulation Overall status at discharge: patient is progressing back to baseline Time Spent with Patient Time attestation: Total time spent providing and/or coordinating discharge services: 32 minutes Time spent: Greater than 30 minutes Specific discharge activities: Diagnostic testing, chart review, developing a treatment plan, education, care coordination documentation, physical exam, result review Exam Const: General: cooperative, no acute distress, well developed, alert and awake Nutritional Appearance: well nourished [place]
--- NOTE | 2021-12-12 08:45 | PM.DS ---
DS: Admitting Diagnosis Discharge Date 12/12/21 0845 Admitting Diagnosis COPD Exacerbation DS: Discharge Diagnosis Discharge Diagnosis (1) COPD exacerbation: Code(s): J44.1 - Chronic obstructive pulmonary disease with (acute) exacerbation Status: Acute Assessment and Plan: Increase in wheezes, sputum, and shortness of breath Supplemental oxygen, wean to maintain saturations >90% Chest xray shows no acute abnormality Steroids 40mg IV Q12H, change to PO prednisone 40mg x 4 doses IV Levaquin day 2 WBC elevated, and trending down, currently 13.5 Sputum culture ordered changed nebs to home inhaler Restart home inhalers when there is significant improvement Smoking cessation counselling (2) Neuropathy: Code(s): G62.9 - Polyneuropathy, unspecified Status: Acute Assessment and Plan: Continue gabapentin from home Trend symptoms Adjust therapy as indicated (3) Hypertension: Code(s): I10 - Essential (primary) hypertension Status: Acute Assessment and Plan: BP 114/75 Continue home amlodipine Trend blood pressure adjust therapy as indicated (4) Mixed hyperlipidemia: Code(s): E78.2 - Mixed hyperlipidemia Status: Acute Assessment and Plan: Continue home atorvastatin Triglycerides 118, Cholesterol 182, LDL 84, HDL 57 from 11/16/21 Seems controlled (5) Chronic pain disorder: Code(s): G89.4 - Chronic pain syndrome Status: Acute Assessment and Plan: Continue home [place] Pain seems stable at this time (6) Tobacco abuse: Code(s): Z72.0 - Tobacco use Status: Acute Assessment and Plan: Smoking cessation education provided Nicotine patch DS: Summary Hospital Course Hospital Course: Patient is a 56-year-old male with a past medical history of COPD, anemia, hypertension, hyperlipidemia who presented to ED with worsening shortness of breath. Upon arrival to the ED patient was noted to have a saturation in the 80s and was placed with 4 L nasal cannula. Patient was started on IV steroids and antibiotics. White count was also elevated however is trending down as currently 13.5 today. Patient stated that he has been eating any feels a lot better. Patient does have a little cough and is producing white sputum. Patient also states that he did not get much sleep was up all night due to headache and heartburn. He denies any chest pain, shortness of breath, nausea, vomiting, diarrhea, constipation, weakness or fatigue. Patient has been successfully weaned off of oxygen and is ready to go home. he will need continue steroids for the next 4 days along with antibiotics. Patient is stable for discharge at this time including labs and vital signs. Status at Discharge Functional status at discharge: independent ambulation Overall status at discharge: patient is progressing back to baseline Time Spent with Patient Time attestation: Total time spent providing and/or coordinating discharge services: 32 minutes Time spent: Greater than 30 minutes Specific discharge activities: Diagnostic testing, chart review, developing a treatment plan, education, care coordination documentation, physical exam, result review Exam Const: General: cooperative, no acute distress, well developed, alert and awake Nutritional Appearance: well nourished Orientation/consciousness: oriented to person, oriented to place, oriented to time and patient oriented x3 Limitations: no limitations HENMT: Head: normal to inspection Ears: hearing grossly normal bilaterally General nose exam: Normal external nose present Mouth: Yes Normal oral and palatal mucosa present, Yes lip normal and Yes tongue normal Teeth and gingiva: abnormal tooth and associated gingiva and poor dentition Eyes: General: appearance normal, both eyes and all related structures Pupils: Equal, round and re
[2021-12-12 08:58] VITALS: PULSE 76; RESP 18; O2SAT 95
[2021-12-12 09:02] VITALS: PULSE 76; RESP 18
[2021-12-12] MEDS: HYDROcodone/acetaminophen (*CRX) 7.5-325 MG TABLET 1 TAB PO (09:09)
[2021-12-12] MEDS: ATORVASTATIN 20 MG TABLET PO (09:10)
[2021-12-12] MEDS: GABAPENTIN 300 MG CAPSULE PO (09:10)
[2021-12-12] MEDS: OXYBUTYNIN CHLORIDE 5 MG TABLET PO (09:10)
[2021-12-12] MEDS: amLODIPine BESYLATE 5 MG TABLET 10 MG PO (09:10)
[2021-12-12] MEDS: CHOLECALCIFEROL 1,000 UNITS TABLET 1000 UNITS PO (09:15)
[2021-12-12] MEDS: predniSONE 20 MG TABLET 40 MG PO (09:15)
[2021-12-12] MEDS: FAMOTIDINE 20 MG TABLET PO (12:53)
== END 2021-12-12 13:40 | disposition home or self-care (01) ==
LOC: ANHED 00:29 → ANH3MEDSUR 05:12
PROVIDERS: Admitting Provider Internal Medicine; Emergency Provider Emergency Medicine; PCP Internal Medicine; Visit Provider Nurse Practitioner
DX: J44.1 Chronic obstructive pulmonary disease with (acute) exacerbation (principal); F41.9 Anxiety disorder, unspecified; I10 Essential (primary) hypertension; E78.5 Hyperlipidemia, unspecified; Z86.711 Personal history of pulmonary embolism; F17.210 Nicotine dependence, cigarettes, uncomplicated; G62.9 Polyneuropathy, unspecified; G89.4 Chronic pain syndrome; F11.20 Opioid dependence, uncomplicated; Z20.822 Contact with and (suspected) exposure to COVID-19
CPT/HCPCS: 36415; 71045; 80053; 83735; 84484; 85025; 87502; 93005; 94640; 96365; 96366; 96375; 96376; 99285; A9270; C9113; C9803; G0378; J1956; J2920; J2930; J7512; U0003; U0005

== ENCOUNTER 2022-03-15 12:51 | Emergency (ER) | payer MEDICARE, SELFPAY ==
--- NOTE | ~2022-03-15 | XR_ITS ---
EXAMINATION: XR hand LT min 3V DATE: 03/15/2022 13:09 INDICATION: Left hand pain. Fall. TECHNIQUE: 3 views of left hand were obtained. COMPARISON: None. FINDINGS: Bone alignment is normal. No acute fracture. There is an old healed fracture of tuft of fou rth distal phalanx. There is mild osteoarthritis of first carpometacarpal joint and fourth distal int erphalangeal joint. IMPRESSION: 1. No acute fracture. Reviewed, dictated and finalized at location A. IMPRESSION: 1. No acute fracture.
[2022-03-15 13:09] VITALS: BP 157/91; PULSE 82; RESP 16; TEMP 36.7; O2SAT 98
--- NOTE | 2022-03-15 13:43 | ED.UPPEXIN ---
HPI - Extremity Injury (Upper) General Chief Complaint: Extremity Injury, Upper Stated Complaint: left hand injury Source: patient Mode of arrival: ambulatory Limitations: no limitations History of Present Illness HPI narrative: 56-year-old male presents to [facility] with complaints of pain to the palmar aspect of his left hand at the base of his left thumb for the past 2 days. Patient reports that he lost his balance and fell landed on his left hand. Patient uses a cane for ambulation. Patient denies hitting his head or loss of consciousness. Patient denies chest pain, shortness of breath, headache, dizziness or blurred vision. Patient has been taking [id number] Tylenol with minimal relief. MD complaint: injury to: left Onset (ago): day(s) (2) Other Extremity Injury: Left: hand Handedness: right Place: home Relieving factors: none Exacerbating factors: movement of extremity Context: fall Associated symptoms: denies other symptoms Treatments prior to arrival: other (Tylenol) Related Data Home Medications Medication Instructions Recorded Confirmed sildenafil 50 mg tablet (Viagra) 50 mg PO DAILY PRN Sexual Activity 05/28/19 03/15/22 amlodipine 10 mg tablet 10 mg PO DAILY 12/11/21 03/15/22 hydrocodone 7.5 mg-acetaminophen 1 tablet PO Q12H PRN Back Pain 12/11/21 03/15/22 325 mg tablet Allergies Allergy/AdvReac Type Severity Reaction Status Date / Time cefadroxil Allergy Mild Hives Verified 03/15/22 12:56 codeine Allergy Mild Hives Verified 03/15/22 12:56 Review of Systems Constitutional: Constitutional: Denies chills, Denies fatigue, Denies fever(s) and Denies weakness ENT: Denies vertigo and Denies dizziness Cardiovascular: Cardiovascular: Denies chest pain Respiratory: Respiratory: Denies chest congestion, Denies cough, Denies dyspnea and Denies wheezing Gastrointestinal: Gastrointestinal: Denies diarrhea, Denies nausea and Denies vomiting Musculoskeletal: Comments: Pain to palmar aspect of left hand, base of left thumb Integumentary/Breasts: Skin/Breast: Denies rash Allergic/Immunologic: Allergic/Immunologic: Denies wheezing PMFSH Past Medical History Medical History Anemia Anxiety Chronic obstructive pulmonary disease Essential hypertension Mixed hyperlipidemia Neuropathy Pulmonary embolism without acute cor pulmonale Surgical History Surgical History H/O hernia repair History of laminectomy Family History Family History Father Carcinoma of colon Mother Heart disease Hypertension Social History Social History Social History: Patient currently lives with his mother and is on disability. Patient states that he does not have any pets and that his mother would be his surrogate if he was unable to make his own decisions. Patient wishes to be a full code at this time Smoking packs per day: 1 Smoking cigarettes per day: 20.0 Years smoked: 45 Smoking pack-years: 45.00 Smoking status: Current every day smoker Tobacco type: cigarettes Second hand tobacco smoke exposure: Yes Alcohol intake: former Substance use: never Additional occupation/education comments: Disability Gender identity (if verbalized by the patient): Male Sexual Orientation (if Verbalized by the Patient): Straight or Heterosexual Spiritual care concerns: No Agree to blood products: Yes Comments At time of signature, I agree with nursing past medical, surgical, social and family history. There is no relevant family history pertinent to the presenting complaint. Exam Const: General: healthy appearing Nutritional Appearance: well nourished Orientation/consciousness: patient oriented x3 Neck: Neck: normal visual inspection Resp: Effort & Inspection: normal respirat
== END 2022-03-15 13:50 | disposition home or self-care (01) ==
PROVIDERS: Emergency Provider Nurse Practitioner Family; PCP Nurse Practitioner
DX: M79.642 Pain in left hand (principal); F17.210 Nicotine dependence, cigarettes, uncomplicated; J44.9 Chronic obstructive pulmonary disease, unspecified; I10 Essential (primary) hypertension; E78.2 Mixed hyperlipidemia; G62.9 Polyneuropathy, unspecified; Z86.711 Personal history of pulmonary embolism
CPT/HCPCS: 73130; 99213; G0463

== ENCOUNTER 2022-05-05 15:25 | Emergency (ER) | payer MEDICARE, SELFPAY ==
--- NOTE | ~2022-05-05 | XR_ITS ---
EXAMINATION: XR ribs LT 2V w CXR 2V DATE: 05/05/2022 15:56 INDICATION: Chest pain. TECHNIQUE: Frontal and lateral views of the chest and 2 views on 3 radiographs of the left ribs were obtained. COMPARISON: Chest single view 12/11/2021, chest CT 10/19/2021 FINDINGS: CHEST TWO VIEWS: There is no pneumonia, pleural effusion, or pneumothorax. The heart size is normal. LEFT RIBS: There is a fracture of anterior left eighth rib. IMPRESSION: 1. Fracture of anterior left eighth rib. Reviewed, dictated and finalized at location A.
[2022-05-05 15:41] VITALS: BP 126/73; PULSE 88; RESP 20; TEMP 36.8; O2SAT 98
--- NOTE | 2022-05-05 17:01 | ED.GENADULT ---
HPI - General Adult General Chief complaint: Unspecified Stated complaint: left rib pain Time Seen by Provider: 05/05/22 16:38 History of Present Illness HPI narrative: 56-year-old male presented the emergency department for evaluation of left rib pain. Patient states he was assembling a crib when he leaned over the rail and felt a pop in his left ribs. Patient states he does have increased pain with movement and does have increased pain with taking a deep breath. Related Data Home Medications Medication Instructions Recorded Confirmed sildenafil 50 mg tablet (Viagra) 50 mg PO DAILY PRN Sexual Activity 05/28/19 04/16/22 amlodipine 10 mg tablet 10 mg PO DAILY 12/11/21 04/16/22 hydrocodone 7.5 mg-acetaminophen 1 tablet PO Q12H PRN Back Pain 12/11/21 04/16/22 325 mg tablet Allergies Allergy/AdvReac Type Severity Reaction Status Date / Time cefadroxil Allergy Mild Hives Verified 05/05/22 16:42 codeine Allergy Mild Irritable Verified 05/05/22 16:42 Review of Systems Review of Systems: CONSTITUTIONAL: Denies fever, chills, or sweats. EYES: Denies visual changes, redness, or discharge. ENT: Denies rhinorrhea, congestion, sore throat, or otalgia. CARDIOVASCULAR: See HPI RESPIRATORY: Denies cough or dyspnea. GASTROINTESTINAL: Denies abdominal pain, nausea, vomiting, or diarrhea. GENITOURINARY: Denies dysuria or hematuria. SKIN: Denies rash or itching. MUSCULOSKELETAL: See HPI NEUROLOGIC: Denies headache, numbness, or weakness. [facility] Past Medical History Medical History Anemia Anxiety Chronic obstructive pulmonary disease Essential hypertension Mixed hyperlipidemia Neuropathy Pulmonary embolism without acute cor pulmonale Surgical History Surgical History H/O hernia repair History of laminectomy Family History Family History Father Carcinoma of colon Mother Heart disease Hypertension Social History Social History Social History: Patient currently lives with his mother and is on disability. Patient states that he does not have any pets and that his mother would be his surrogate if he was unable to make his own decisions. Patient wishes to be a full code at this time Smoking packs per day: 1 Smoking cigarettes per day: 20.0 Years smoked: 45 Smoking pack-years: 45.00 Smoking status: Current every day smoker Tobacco type: cigarettes Second hand tobacco smoke exposure: Yes Alcohol intake: former Substance use: never Additional occupation/education comments: Disability Gender identity (if verbalized by the patient): Male Sexual Orientation (if Verbalized by the Patient): Straight or Heterosexual Spiritual care concerns: No Agree to blood products: Yes Exam Narrative: APPEARANCE: Well appearing, no pain, no distress, well-nourished. HEAD: normocephalic, atraumatic. EYES: PERRLA/EOMI, conjunctivae clear. NOSE: Normal no drainage NECK: Supple. No adenopathy, no masses. RESPIRATORY: Airway patent, respirations nonlabored. Clear to auscultation bilaterally, no rales, rhonchi, wheezing. CARDIOVASCULAR: Regular rate and rhythm without murmurs rubs or gallops. ABDOMINAL: Soft, nontender, nondistended, normal bowel sounds MUSCULOSKELETAL: Left-sided rib tenderness to palpation. NEURO: Alert. Cranial nerves II through XII intact. Grossly intact SKIN: Warm, dry. Normal Color Course Course Emergency Course: Patient was provided an incentive spirometer and medications for pain control. Patient was educated on reasons to return to the emergency room. Patient was also encouraged to have close follow-up with his primary care physician. Vital Signs Vital signs: Vital Signs Temperature 98.2 F 05/05/22 15:41 Pulse Rate 88 05/05/22 15:41 Respiratory Rate 20
[2022-05-05] MEDS: HYDROcodone/acetaminophen (*CRX) 5-325 MG TABLET 1 TAB PO (17:10)
[2022-05-05] MEDS: ONDANSETRON HCL ODT 4 MG TABLET PO (17:14)
[2022-05-05 17:18] VITALS: RESP 16
== END 2022-05-05 17:18 | disposition home or self-care (01) ==
LOC: ANHED 17:07
PROVIDERS: Emergency Provider Emergency Medicine; PCP Nurse Practitioner
DX: S22.32XA Fracture of one rib, left side, initial encounter for closed fracture (principal); F17.210 Nicotine dependence, cigarettes, uncomplicated; D64.9 Anemia, unspecified; F41.9 Anxiety disorder, unspecified; J44.9 Chronic obstructive pulmonary disease, unspecified; E78.5 Hyperlipidemia, unspecified; W22.03XA Walked into furniture, initial encounter
CPT/HCPCS: 71046; 71100; 99283; A9270

== ENCOUNTER 2022-07-27 20:53 | Emergency (ER) | payer MEDICARE, SELFPAY ==
[2022-07-27] VITALS (7 sets, daily range): BP systolic 129–154; BP diastolic 75–93; PULSE 60–72; RESP 12–18; TEMP 36; O2SAT 98–100
--- NOTE | ~2022-07-27 | XR_ITS ---
EXAMINATION: XR chest 2V DATE: 07/27/2022 21:49 INDICATION: Chest pain. Shortness of breath. TECHNIQUE: Frontal and lateral views of the chest were obtained. COMPARISON: Chest 2 views 05/05/2022, chest CT 10/19/2021 FINDINGS: Calcified right lung nodules and calcified right hilar lymph nodes are consistent with old granulomatous disease. No pleural effusion or pneumothorax. The heart size is normal. IMPRESSION: 1. No acute cardiopulmonary disease. Reviewed, dictated and finalized at location A. NA
--- NOTE | 2022-07-27 20:59 | ECG_ITS ---
Measurements Intervals [place] Rate: 61 P: 65 CO: 154 QRS: 77 QRSD: 99 T: 54 QT: 396 QTc: 401 Interpretive Statements SINUS RHYTHM DELAYED PRECORDIAL R/S TRANSITION BORDERLINE ECG COMPARED TO ECG 12/11/2021 00:43:52 SINUS RHYTHM NOW PRESENT Electronically Signed On 07-28-2022 7:53:56 MACHINE SPECIALIST by Tre Lemon D.O.
[2022-07-27 21:41] LABS: Partial Thromboplastin Time 27.6 SECONDS (22.3-36.8); Prothrombin Time 12.7 Seconds (11.1-14.7)
[2022-07-27 21:43] LABS: Alanine Aminotransferase 18 U/L (6-50); Albumin Level 4.6 g/dL (3.5-5.1); Alkaline Phosphatase 67 U/L (38-126); Anion Gap 9 mmol/L (8-16); Aspartate Amino Transferase 20 U/L (17-59); Bilirubin,Total 0.6 mg/dL (0.2-1.3); Blood Urea Nitrogen 9 mg/dL (9-20); Calcium 9.1 mg/dL (8.4-10.2); Carbon Dioxide 25 mmol/L (22-30); Chloride 91 mmol/L (98-107); Estimated CRCL calculation 105 ml/min; Estimated Glomerular Filt Rate > 60; Glucose 93 mg/dL (65-110); Lipase 50 U/L (23-300); Potassium 3.7 mmol/L (3.4-5.0); Sodium 125 mmol/L (137-145)
[2022-07-27] MEDS: SODIUM CHLORIDE 0.9% IV 1,000 ML 999 ML IV CONT (21:47)
[2022-07-27 21:50] LABS: Troponin I < 0.012 ng/mL (0.000-0.034)
[2022-07-27 21:50] LABS: Basophils Absolute Auto 0.1 K/mm3 (0.0-0.1); Basophils Percent Auto 0.5 % (0.2-1.2); Eosinophils Percent Auto 0.4 % (0-4.4); Hematocrit 38.5 % (42.0-52.0); Hemoglobin 13.2 g/dL (14.0-18.0); Immature Granulocyte Absolute 0.03 K/mm3 (0.00-0.031); Immature Granulocyte Percent A 0.3 % (0-0.5); Lymphocytes Absolute Auto 2.83 K/mm3 (0.9-3.2); Lymphocytes Percent Auto 26.4 % (18.3-44.2); Mean Corpuscular HGB Conc 34.3 g/dl (32-36); Mean Corpuscular Hemoglobin 32.4 pg (26-34); Mean Corpuscular Volume 94.6 fl (80-100); Mean Platelet Volume 8.8 fl (7.4-10.4); Monocytes Absolute Auto 0.5 K/mm3 (0.1-0.6); Neutrophils Absolute Auto 7.2 K/mm3 (1.3-6.7); Neutrophils Percent Auto 67.4 % (45.5-73.1); Platelet Count Result 336 k/mm3 (150-375); Red Blood Count 4.07 M/mm3 (4.6-6.20); Red Cell Distribution Width 13.3 % (11.5-14.5); White Blood Count 10.7 K/mm3 (4.5-10.0)
[2022-07-27] MEDS: ASPIRIN 81 MG CHEWABLE TABLET 324 MG PO (21:50)
[2022-07-27 21:54] LABS: Troponin I < 0.012 ng/mL (0.000-0.034)
[2022-07-27 23:26] LABS: Influenza A QL RT-PCR Negative (Negative); Influenza B QL RT-PCR Negative (Negative); SARS-CoV-2 RNA PCR Negative
[2022-07-28 00:15] VITALS: BP 127/79; PULSE 64; RESP 17; O2SAT 98
[2022-07-28 00:59] LABS: Troponin I < 0.012 ng/mL (0.000-0.034)
--- NOTE | 2022-07-28 01:07 | ED.CHESTPAIN ---
HPI - Chest Pain General Chief Complaint: Chest Pain Stated Complaint: nausea, lightheaded, hurts to breathe Time Seen by Provider: 07/27/22 21:20 History of Present Illness HPI narrative: Patient is a 56-year-old male who presents ER with multiple complaints. Reports intermittent chest discomfort left upper chest wall that lasts for a minute. It is sporadic. No association with exertion or deep breath. Patient reports occasional shortness of breath. He does endorse fatigue and poor oral intake over the last couple days. He has had some runny nose. Reports history of PE related to his surgery on his spine years ago and is no longer on blood thinners. He has no leg swelling or cramping. No hemoptysis. He reports occasional abdominal cramping as well. Patient has had some dizziness with going from sitting to standing. Related Data Home Medications Medication Instructions Recorded Confirmed sildenafil 50 mg tablet (Viagra) 50 mg PO DAILY PRN Sexual Activity 05/28/19 06/29/22 hydrocodone 7.5 mg-acetaminophen 1 tablet PO Q12H PRN Back Pain 12/11/21 06/29/22 325 mg tablet Allergies Allergy/AdvReac Type Severity Reaction Status Date / Time cefadroxil Allergy Mild Hives Verified 07/27/22 20:55 codeine Allergy Mild Irritable Verified 07/27/22 20:55 Review of Systems Review of Systems: All systems reviewed & are unremarkable except as noted in HPI and below Constitutional: Constitutional: Denies chills, Reports fatigue and Denies fever(s) ENT: Reports nasal congestion and Denies sore throat Cardiovascular: Cardiovascular: Reports chest pain, Denies rapid heart rate and Denies radiating jaw, neck or arm pain Respiratory: Respiratory: Denies chest congestion, Denies cough, Reports dyspnea and Denies wheezing Gastrointestinal: Gastrointestinal: Reports abdominal pain, Denies diarrhea, Reports nausea and Denies vomiting Neurologic: Reports dizziness and Denies syncope PMF Past Medical History Medical History Anemia Anxiety Chronic obstructive pulmonary disease Essential hypertension Mixed hyperlipidemia Neuropathy Pulmonary embolism without acute cor pulmonale Surgical History Surgical History H/O hernia repair History of laminectomy Family History Family History Father Carcinoma of colon Mother Heart disease Hypertension Social History Social History Social History: Patient currently lives with his mother and is on disability. Patient states that he does not have any pets and that his mother would be his surrogate if he was unable to make his own decisions. Patient wishes to be a full code at this time Smoking packs per day: 1 Smoking cigarettes per day: 20.0 Years smoked: 45 Smoking pack-years: 45.00 Smoking status: Current every day smoker Tobacco type: cigarettes Second hand tobacco smoke exposure: Yes Alcohol intake: former Substance use: never Lack of Transportation: No Lack of Food: Never True Current Housing: I Have Housing Concerned About Future Housing: No Difficulty Paying Gas/Electric Bills: YES Difficulty Paying for Meds: No Currently Unemployed: No Education: Grade School Difficulty w/ Childcare or Family Care: YES Additional occupation/education comments: Disability Gender identity (if verbalized by the patient): Male Sexual Orientation (if Verbalized by the Patient): Straight or Heterosexual Spiritual care concerns: No Agree to blood products: Yes Exam Narrative: GENERAL: Well-appearing, well-nourished, and in no acute distress. HEAD: Normocephalic, atraumatic. EYES: PERRL and EOMI. ENT: Mucous membranes moist. CHEST: Clear to auscultation. No respiratory distress. HEART: Regular rate and rhythm. Normal perip
[2022-07-28 01:50] VITALS: BP 122/82; PULSE 62; RESP 16; O2SAT 100
--- NOTE | 2022-07-30 10:18 | PC.NURSE ---
LATE ENTRY This note is being entered to document information to the patient's record. The following information was omitted on [07/27/22], by [Kaley Bell RN]. NS stopped at [id number]
== END 2022-07-28 01:53 | disposition home or self-care (01) ==
PROVIDERS: Emergency Provider Emergency Medicine
DX: R07.89 Other chest pain (principal); E87.1 Hypo-osmolality and hyponatremia; Z20.822 Contact with and (suspected) exposure to COVID-19; J44.9 Chronic obstructive pulmonary disease, unspecified; I10 Essential (primary) hypertension; E78.2 Mixed hyperlipidemia; D64.9 Anemia, unspecified; G62.9 Polyneuropathy, unspecified; Z86.711 Personal history of pulmonary embolism; F17.210 Nicotine dependence, cigarettes, uncomplicated; R94.31 Abnormal electrocardiogram [ECG] [EKG]
CPT/HCPCS: 36415; 71046; 80053; 83690; 84484; 85025; 85610; 85730; 87636; 93005; 96360; 99284; A9270; J7030

== ENCOUNTER 2022-10-20 10:46 | Outpatient (CLI) | payer MEDICARE, SELFPAY ==
--- NOTE | ~2022-10-20 | CT_ITS ---
EXAMINATION:CT lung screening DATE: 10/20/2022 11:11 INDICATION: Lung cancer screening. Current smoker with 45 pack year history. TECHNIQUE: Computed tomography (CT) of the chest was performed without intravenous contrast. Automate d exposure control and iterative reconstruction technique were employed. The dose-length product (DLP ) was 110.34 mGy-cm. COMPARISON: Chest CT 10/19/2021 FINDINGS: There is mild atelectasis in lingula. No pleural effusion. The heart size is normal. There are coronary artery calcifications. No pericardial effusion. There is mild thoracic spondylosis. IMPRESSION: 1. Lung-RADS category 1: Negative. Continue annual screening with noncontrast low-dose chest CT in 12 months. Reviewed, dictated and finalized at location A. IMPRESSION: 1. Lung-RADS category 1: Negative. Continue annual screening with noncontrast l ow-dose chest CT in 12 months.
== END 2022-10-20 10:47 | disposition home or self-care (01) ==
LOC: ANHIMG 10:52
PROVIDERS: Visit Provider Physician Assistant
DX: Z12.2 Encounter for screening for malignant neoplasm of respiratory organs (principal); Z87.891 Personal history of nicotine dependence
CPT/HCPCS: 71271

== ENCOUNTER 2022-10-28 21:53 | Emergency (ER) | payer MEDICARE, SELFPAY ==
[2022-10-28] VITALS (9 sets, daily range): BP systolic 107–134; BP diastolic 66–77; PULSE 59–82; RESP 17–23; TEMP 36.6; O2SAT 92–97
--- NOTE | ~2022-10-28 | XR_ITS ---
EXAMINATION: XR chest 2V 10/28/2022 22:24 INDICATION: Shortness of breath and chest pressure PROCEDURE: 2 view chest COMPARISON: Comparison to multiple prior studies sequentially, with oldest reviewed study dated 09/2021. FINDINGS: The lungs are clear. The cardiomediastinal silhouette is within normal limits. There are no pleural effusions. There is no pneumothorax suspected. IMPRESSION: 1: NO ACUTE CARDIOPULMONARY DISEASE. Reviewed, dictated and finalized at location A.
--- NOTE | 2022-10-28 21:54 | ECG_ITS ---
Measurements Intervals [place] Rate: 63 P: 60 OK: 155 QRS: 75 QRSD: 90 T: 62 QT: 373 QTc: 385 Interpretive Statements SINUS RHYTHM NORMAL ELECTROCARDIOGRAM COMPARED TO ECG 07/27/2022 21:21:42 NO SIGNIFICANT CHANGES Electronically Signed On 10-29-2022 7:20:04 CDT by Preston Pinedo M.D.
[2022-10-28 22:15] LABS: Basophils Absolute Auto 0.1 K/mm3 (0.0-0.1); Basophils Percent Auto 0.8 % (0.2-1.2); Eosinophils Absolute Auto 0.1 K/mm3 (0-0.3); Eosinophils Percent Auto 1.4 % (0-4.4); Hemoglobin 12.4 g/dL (14.0-18.0); Immature Granulocyte Absolute 0.03 K/mm3 (0.00-0.031); Immature Granulocyte Percent A 0.3 % (0-0.5); Lymphocytes Absolute Auto 2.45 K/mm3 (0.9-3.2); Lymphocytes Percent Auto 27.6 % (18.3-44.2); Mean Corpuscular HGB Conc 33.5 g/dl (32-36); Mean Corpuscular Hemoglobin 33.2 pg (26-34); Mean Corpuscular Volume 98.9 fl (80-100); Mean Platelet Volume 8.5 fl (7.4-10.4); Monocytes Absolute Auto 0.5 K/mm3 (0.1-0.6); Monocytes Percent Auto 6.1 % (2.6-8.5); Neutrophils Absolute Auto 5.7 K/mm3 (1.3-6.7); Neutrophils Percent Auto 63.8 % (45.5-73.1); Platelet Count Result 293 k/mm3 (150-375); Red Blood Count 3.74 M/mm3 (4.6-6.20); Red Cell Distribution Width 13.2 % (11.5-14.5); White Blood Count 8.9 K/mm3 (4.5-10.0)
[2022-10-28 22:20] LABS: Alanine Aminotransferase 19 U/L (6-50); Albumin Level 4.4 g/dL (3.5-5.1); Alkaline Phosphatase 54 U/L (38-126); Anion Gap 5 mmol/L (8-16); Aspartate Amino Transferase 20 U/L (17-59); Bilirubin,Total 0.5 mg/dL (0.2-1.3); Blood Urea Nitrogen 10 mg/dL (9-20); Calcium 8.9 mg/dL (8.4-10.2); Carbon Dioxide 28 mmol/L (22-30); Chloride 100 mmol/L (98-107); Estimated CRCL calculation 83 ml/min; Estimated Glomerular Filt Rate > 60; Glucose 98 mg/dL (65-110); Potassium 3.8 mmol/L (3.4-5.0); Sodium 133 mmol/L (137-145)
[2022-10-29] VITALS (14 sets, daily range): BP systolic 110–129; BP diastolic 66–99; PULSE 56–78; RESP 9–28; TEMP 36.6; O2SAT 93–100
--- NOTE | 2022-10-29 00:04 | ED.SOB ---
HPI - SOB/Dyspnea General Chief Complaint: Shortness of Breath/Dyspnea Stated Complaint: SOB Time Seen by Provider: 10/28/22 23:25 History of Present Illness HPI Narrative: Patient is a 56-year-old male with a history of COPD presenting with shortness of breath. Patient states that for the last several days he has been feeling increasingly short of breath and has had a productive cough. States that he checked his oxygen earlier today and it dropped to 88%. States he has been using his inhaler with minimal relief. States that he has been having some chest tightness. States that sometimes he will feel lightheaded whenever he feels short of breath. States that he does still smoke cigarettes. Denies fevers or chills, palpitations, headache, numbness or weakness, nausea or vomiting, diarrhea, leg swelling, dysuria, rashes Related Data Home Medications Medication Instructions Recorded Confirmed sildenafil 50 mg tablet (Viagra) 50 mg PO DAILY PRN Sexual Activity 05/28/19 10/21/22 hydrocodone 7.5 mg-acetaminophen 1 tablet PO Q12H PRN Back Pain 12/11/21 10/21/22 325 mg tablet esomeprazole magnesium 20 mg 20 mg PO DAILY 10/21/22 10/21/22 tablet,delayed release (Nexium 24HR) Allergies Allergy/AdvReac Type Severity Reaction Status Date / Time cefadroxil Allergy Mild Hives Verified 10/21/22 10:12 codeine Allergy Mild Irritable Verified 10/21/22 10:12 Review of Systems Review of Systems: All systems reviewed & are unremarkable except as noted in HPI and below PMFSH Past Medical History Medical History Anemia Anxiety Cervical radiculopathy due to degenerative joint disease of spine Chronic obstructive pulmonary disease Erectile dysfunction Essential hypertension Lumbar degenerative disc disease Mixed hyperlipidemia Neuropathy Pulmonary embolism without acute cor pulmonale Tobacco abuse Surgical History Surgical History H/O hernia repair History of laminectomy Family History Family History Father Carcinoma of colon Mother Heart disease Hypertension Social History Social History Social History: Patient currently lives with his mother and is on disability. Patient states that he does not have any pets and that his mother would be his surrogate if he was unable to make his own decisions. Patient wishes to be a full code at this time Smoking packs per day: 1 Smoking cigarettes per day: 20.0 Years smoked: 45 Smoking pack-years: 45.00 Smoking status: Current every day smoker Tobacco type: cigarettes Second hand tobacco smoke exposure: Yes Alcohol intake: former Substance use: never Substance use type: does not use Lack of Transportation: No Lack of Food: Never True Current Housing: I Have Housing Concerned About Future Housing: No Difficulty Paying Gas/Electric Bills: YES Difficulty Paying for Meds: No Currently Unemployed: No Education: Grade School Difficulty w/ Childcare or Family Care: No Living arrangements: with family Occupation/Education: other Additional occupation/education comments: Disability Gender identity (if verbalized by the patient): Male Sexual Orientation (if Verbalized by the Patient): Straight or Heterosexual Spiritual care concerns: No Agree to blood products: Yes Exam Narrative: GENERAL: Well-appearing, well-nourished, and in no acute distress. HEAD: Normocephalic, atraumatic. EYES: PERRLA and EOMI. ENT: Nares clear, no rhinorrhea or epistaxis. Mucous membranes moist. NECK: Supple. CHEST: Diminished breath sounds bilaterally with scattered wheezing HEART: Regular rate and rhythm ABDOMEN: Soft, nontender, nondistended EXTREMITIES: Normal range of motion. No edema. SKIN: Warm, dry, no rash. NEURO: No
[2022-10-29] MEDS: methylPREDNISolone SOD SUCC 125 MG VIAL IV PUSH (00:35)
[2022-10-29 00:44] LABS: Troponin I < 0.012 ng/mL (0.000-0.034)
[2022-10-29 01:00] LABS: INR 0.9
[2022-10-29 02:55] LABS: Influenza A QL RT-PCR Negative (Negative); Influenza B QL RT-PCR Negative (Negative); SARS-CoV-2 RNA PCR Negative (Negative)
[2022-10-29 02:56] LABS: RSV RNA, RT-PCR Negative (Negative)
[2022-10-29 02:59] LABS: Troponin I < 0.012 ng/mL (0.000-0.034)
== END 2022-10-29 02:20 | disposition home or self-care (01) ==
PROVIDERS: Emergency Provider Emergency Medicine; PCP Internal Medicine
DX: J44.1 Chronic obstructive pulmonary disease with (acute) exacerbation (principal); Z20.822 Contact with and (suspected) exposure to COVID-19; I10 Essential (primary) hypertension; E78.2 Mixed hyperlipidemia; D64.9 Anemia, unspecified; G62.9 Polyneuropathy, unspecified; F17.210 Nicotine dependence, cigarettes, uncomplicated; Z86.711 Personal history of pulmonary embolism
CPT/HCPCS: 36415; 71046; 80053; 84484; 85025; 85610; 85730; 87637; 93005; 96374; 99284; J2930

== ENCOUNTER 2022-11-01 17:19 | Outpatient (CLI) | payer MEDICARE, SELFPAY ==
--- NOTE | ~2022-11-01 | MR_ITS ---
EXAMINATION: MR cervical spine wo con DATE: 11/01/2022 18:11 INDICATION: Cervical disc herniation. TECHNIQUE: Magnetic resonance imaging (MRI) of the cervical spine was performed without intravenous c ontrast. Sequences included sagittal T2-weighted FSE, sagittal T2-weighted FS FSE, sagittal T1-weight ed FSE, axial MERGE, and axial T2-weighted FSE. COMPARISON: Cervical spine MRI 03/24/2021 FINDINGS: There is 7 degrees dextrocurvature of cervicothoracic spine. Vertebral body heights are nor mal. There is mildly decreased disc height at C5-C6. The spinal cord signal intensity is normal. The following disc levels are specifically discussed: C2-C3: The disc does not extend beyond the endplate margin. There is no uncovertebral joint osteoarth ritis. There is mild right and severe left facet joint osteoarthritis. There is mild left neural fora chadwick stenosis. There is no central canal stenosis. C3-C4: There is a central extrusion. There is no uncovertebral joint osteoarthritis. There is mild ri ght and severe left facet joint osteoarthritis. There is mild left neural foraminal stenosis. There i s mild central canal stenosis. C4-C5: There is a central extrusion. There is no uncovertebral joint osteoarthritis. There is moderat e bilateral facet joint osteoarthritis. There is no neural foraminal stenosis. There is mild central canal stenosis with ventral indentation of the spinal cord. C5-C6: The disc is bulging. There is severe bilateral uncovertebral joint osteoarthritis. There is mo derate bilateral facet joint osteoarthritis. There is moderate right and mild left neural foraminal s tenosis. There is mild central canal stenosis with ventral indentation of the spinal cord. C6-C7: There is a central protrusion. There is mild bilateral uncovertebral joint osteoarthritis. The re is mild bilateral facet joint osteoarthritis. There is no neural foraminal stenosis. There is mild central canal stenosis. C7-T1: The disc does not extend beyond the endplate margin. There is no uncovertebral joint osteoarth ritis. There is mild bilateral facet joint osteoarthritis. There is no neural foraminal stenosis. The re is no central canal stenosis. IMPRESSION: 1. Moderate cervical spondylosis, stable from 03/24/2021. Reviewed, dictated and finalized at location A.
== END 2022-11-01 17:20 | disposition home or self-care (01) ==
PROVIDERS: PCP Internal Medicine; Visit Provider Pain Medicine Pain Medicine
DX: M47.812 Spondylosis without myelopathy or radiculopathy, cervical region (principal); M50.21 Other cervical disc displacement, high cervical region; M50.223 Other cervical disc displacement at C6-C7 level
CPT/HCPCS: 72141

== ENCOUNTER 2023-01-07 16:58 | Emergency (ER) | payer MEDICARE, SELFPAY ==
--- NOTE | ~2023-01-07 | XR_ITS ---
EXAMINATION: XR chest 2V DATE: 01/07/2023 17:15 INDICATION: Cough, shortness of breath and right rib pain TECHNIQUE: PA and lateral views of the chest were obtained. COMPARISON: Chest radiograph dated 10/28/2022 FINDINGS: The lungs remain clear with no focal airspace opacities, pulmonary edema, pleural effusion or pneumot horax. The cardiomediastinal silhouette is normal. Mild to moderate thoracic spondylosis. IMPRESSION: 1. No acute cardiopulmonary disease. Reviewed, dictated and finalized at location A.
[2023-01-07 17:04] VITALS: BP 145/76; PULSE 84; RESP 18; TEMP 36.4; O2SAT 95
--- NOTE | 2023-01-07 18:04 | ED.GENADULT ---
HPI - General Adult General Chief complaint: Unspecified Stated complaint: rib injury Time Seen by Provider: 01/07/23 17:16 Source: patient Mode of arrival: ambulatory Limitations: no limitations History of Present Illness HPI narrative: This is a 57-year-old male who presents to the ED with chief complaint of a right-sided rib injury. Patient states that he was working on his toilet and bent over the side of it today. He felt like he could not pressure on it to feel a pop in the right side. He has not since had trouble with deeper breathing. Denies any further site of pain or injury. Denies bruising. Related Data Home Medications Medication Instructions Recorded Confirmed sildenafil 50 mg tablet (Viagra) 100 mg PO DAILY PRN Sexual Activity 05/28/19 12/29/22 hydrocodone 7.5 mg-acetaminophen 1 tablet PO Q12H PRN Back Pain 12/11/21 12/29/22 325 mg tablet esomeprazole magnesium 20 mg 20 mg PO DAILY 10/21/22 12/29/22 tablet,delayed release (Nexium 24HR) Allergies Allergy/AdvReac Type Severity Reaction Status Date / Time cefadroxil Allergy Mild Hives Verified 01/07/23 17:29 codeine Allergy Mild Irritable Verified 01/07/23 17:29 [facility], [facility] Past Medical History Medical History Anemia Anxiety Cervical radiculopathy due to degenerative joint disease of spine Chronic obstructive pulmonary disease Erectile dysfunction Essential hypertension Lumbar degenerative disc disease Mixed hyperlipidemia Neuropathy Pulmonary embolism without acute cor pulmonale Tobacco abuse Surgical History Surgical History H/O hernia repair History of laminectomy Family History Family History (Updated 12/29/22 @ 09:09 by ADILSON Hussein) Father Carcinoma of colon Mother Heart disease Hypertension Melanoma Social History Social History Social History: Patient currently lives with his mother and is on disability. Patient states that he does not have any pets and that his mother would be his surrogate if he was unable to make his own decisions. Patient wishes to be a full code at this time Smoking packs per day: 1 Smoking cigarettes per day: 20.0 Years smoked: 46 Smoking pack-years: 46.00 Smoking status: Current every day smoker Tobacco type: cigarettes Second hand tobacco smoke exposure: Yes Alcohol intake: former Substance use: never Substance use type: does not use Lack of Transportation: No Lack of Food: Never True Current Housing: I Have Housing Concerned About Future Housing: No Difficulty Paying Gas/Electric Bills: YES Difficulty Paying for Meds: No Currently Unemployed: No Education: Grade School Difficulty w/ Childcare or Family Care: No Living arrangements: with family Occupation/Education: other Additional occupation/education comments: Disability Gender identity (if verbalized by the patient): Male Sexual Orientation (if Verbalized by the Patient): Straight or Heterosexual Spiritual care concerns: No Agree to blood products: Yes Exam Narrative: GENERAL: Well-appearing, well-nourished, and in no acute distress. HEAD: Normocephalic, atraumatic. EYES: PERRLA and EOMI. ENT: Nares clear, no rhinorrhea or epistaxis. Mucous membranes moist. Oropharynx without tonsillar hypertrophy exudate or other lesions. NECK: Supple. No adenopathy or masses. CHEST: Point tender to the right anterior inferior ribs. No respiratory distress. Clear to auscultation. Breath sounds equal bilaterally. No wheezes rales or rhonchi. HEART: Regular rate and rhythm. No murmur heard. Normal peripheral pulses. ABDOMEN: Soft, nontender, nondistended, normal active bowel sounds. MSK: Normal range of motion. No edema. SKIN: Warm, dry, no rash. NEURO: Alert and oriented x3. No focal deficits. PSYCH: Normal mood
== END 2023-01-07 18:47 | disposition home or self-care (01) ==
PROVIDERS: Emergency Provider Physician Assistant; PCP Nurse Practitioner
DX: R07.81 Pleurodynia (principal); J44.9 Chronic obstructive pulmonary disease, unspecified; I10 Essential (primary) hypertension; E78.2 Mixed hyperlipidemia; F17.210 Nicotine dependence, cigarettes, uncomplicated
CPT/HCPCS: 71046; 99283

== ENCOUNTER 2023-06-19 20:18 | Emergency (ER) | payer MEDICARE, SELFPAY ==
[2023-06-19 20:22] VITALS: BP 128/71; PULSE 75; RESP 12; TEMP 36.4; O2SAT 100
[2023-06-19 20:51] VITALS: BP 131/79; PULSE 56; RESP 15; TEMP 36.7; O2SAT 96
[2023-06-19 21:28] LABS: Basophils Absolute Auto 0.1 K/mm3 (0.0-0.1); Basophils Percent Auto 0.6 % (0.2-1.2); Eosinophils Absolute Auto 0.2 K/mm3 (0-0.3); Eosinophils Percent Auto 1.6 % (0-4.4); Hematocrit 41.7 % (42.0-52.0); Hemoglobin 13.8 g/dL (14.0-18.0); Immature Granulocyte Absolute 0.05 K/mm3 (0.00-0.031); Immature Granulocyte Percent A 0.4 % (0-0.5); Lymphocytes Absolute Auto 3.01 K/mm3 (0.9-3.2); Lymphocytes Percent Auto 22.8 % (18.3-44.2); Mean Corpuscular HGB Conc 33.1 g/dl (32-36); Mean Corpuscular Hemoglobin 32.5 pg (26-34); Mean Corpuscular Volume 98.1 fl (80-100); Mean Platelet Volume 8.5 fl (7.4-10.4); Monocytes Absolute Auto 0.8 K/mm3 (0.1-0.6); Neutrophils Percent Auto 68.6 % (45.5-73.1); Platelet Count Result 315 k/mm3 (150-375); Red Blood Count 4.25 M/mm3 (4.6-6.20); Red Cell Distribution Width 13.3 % (11.5-14.5); White Blood Count 13.2 K/mm3 (4.5-10.0)
[2023-06-19] MEDS: SODIUM CHLORIDE 0.9% IV 1,000 ML 999 ML IV CONT (21:29)
[2023-06-19] MEDS: PROCHLORPERAZINE EDISYLATE 10 MG/2 ML VIAL IV PUSH (21:29)
[2023-06-19 21:38] LABS: Alanine Aminotransferase 13 U/L (6-50); Albumin Level 4.6 g/dL (3.5-5.1); Alkaline Phosphatase 60 U/L (38-126); Anion Gap 8 mmol/L (8-16); Aspartate Amino Transferase 18 U/L (17-59); Bilirubin,Total 0.6 mg/dL (0.2-1.3); Blood Urea Nitrogen 8 mg/dL (9-20); Calcium 9.6 mg/dL (8.4-10.2); Carbon Dioxide 26 mmol/L (22-30); Chloride 101 mmol/L (98-107); Estimated CRCL calculation 73 ml/min; Estimated Glomerular Filt Rate > 60; Glucose 87 mg/dL (65-110); Magnesium 2.2 mg/dL (1.6-2.3); Potassium 3.9 mmol/L (3.4-5.0); Sodium 135 mmol/L (137-145)
[2023-06-19 22:07] LABS: Influenza A QL RT-PCR Negative (Negative); Influenza B QL RT-PCR Negative (Negative); SARS-CoV-2 RNA PCR Negative (Negative)
[2023-06-19 22:09] VITALS: BP 103/66; PULSE 57; RESP 18; O2SAT 96
--- NOTE | 2023-06-19 22:58 | ED.WEAKNESS ---
HPI - Weakness General Chief complaint: Weakness Stated complaint: weakness, dx with covid x 1 week Time Seen by Provider: 06/19/23 20:39 History of Present Illness HPI Narrative: This is a 57-year-old male, with history of COPD and a home COVID positive test 9 days ago, who presents emergency department complaining generalized weakness and congestion. The patient states he has been congested of felt tired since his positive COVID test at home. This is associated with some nausea but no vomiting. He denies chest pain, persistent vomiting or shortness of breath. Related Data Home Medications Medication Instructions Recorded Confirmed sildenafil 50 mg tablet (Viagra) 100 mg PO DAILY PRN Sexual Activity 05/28/19 05/19/23 hydrocodone 7.5 mg-acetaminophen 1 tablet PO Q12H PRN Back Pain 12/11/21 05/19/23 325 mg tablet esomeprazole magnesium 20 mg 20 mg PO DAILY 10/21/22 05/19/23 tablet,delayed release (Nexium 24HR) Allergies Allergy/AdvReac Type Severity Reaction Status Date / Time cefadroxil Allergy Mild Hives Verified 05/19/23 08:49 codeine Allergy Mild Irritable Verified 05/19/23 08:49 Review of Systems Review of Systems: CONSTITUTIONAL: chills Denies fever, or sweats. ENT: rhinorrhea and congestion Denies sore throat, or otalgia. CARDIOVASCULAR: Denies chest pain, palpitations, or edema. RESPIRATORY: Denies cough or dyspnea. GASTROINTESTINAL: Denies abdominal pain, nausea, vomiting, or diarrhea. GENITOURINARY: Denies dysuria or hematuria. SKIN: Denies rash or itching. MUSCULOSKELETAL: Denies back pain, joint pain, or myalgia. NEUROLOGIC: generalized weakness Denies headache, numbness, dizziness PSYCHIATRIC: Denies anxiety or depression. [facility] Past Medical History Medical History Anemia Anxiety Cervical radiculopathy due to degenerative joint disease of spine Chronic obstructive pulmonary disease Erectile dysfunction Essential hypertension Lumbar degenerative disc disease Mixed hyperlipidemia Neuropathy Pulmonary embolism without acute cor pulmonale Tobacco abuse Surgical History Surgical History H/O hernia repair History of laminectomy Family History Family History Father Carcinoma of colon Mother Heart disease Hypertension Melanoma Social History Social History Social History: Patient currently lives with his mother and is on disability. Patient states that he does not have any pets and that his mother would be his surrogate if he was unable to make his own decisions. Patient wishes to be a full code at this time Smoking packs per day: 1 Smoking cigarettes per day: 20.0 Years smoked: 46 Smoking pack-years: 46.00 Smoking status: Current every day smoker Tobacco type: cigarettes Second hand tobacco smoke exposure: Yes Alcohol intake: former Substance use: never Substance use type: does not use Lack of Transportation: No Lack of Food: Never True Current Housing: I Have Housing Concerned About Future Housing: No Difficulty Paying Gas/Electric Bills: YES Difficulty Paying for Meds: No Currently Unemployed: No Education: Grade School Difficulty w/ Childcare or Family Care: YES Living arrangements: with family Occupation/Education: other Additional occupation/education comments: Disability Gender identity (if verbalized by the patient): Male Sexual Orientation (if Verbalized by the Patient): Straight or Heterosexual Spiritual care concerns: No Agree to blood products: Yes Exam Narrative: GENERAL: Well-developed, well-nourished, and in no acute distress. HEAD: Normocephalic, atraumatic. EYES: PERRLA and EOMI. ENT: Nares clear, no rhinorrhea or epistaxis. Mucous membranes moist. Oropharynx without tons
== END 2023-06-19 23:09 | disposition home or self-care (01) ==
PROVIDERS: Emergency Provider Preventive Medicine Aerospace Medicine; PCP Nurse Practitioner
DX: K52.9 Noninfective gastroenteritis and colitis, unspecified (principal); Z20.822 Contact with and (suspected) exposure to COVID-19; J44.9 Chronic obstructive pulmonary disease, unspecified; I10 Essential (primary) hypertension; E78.2 Mixed hyperlipidemia; D64.9 Anemia, unspecified; G62.9 Polyneuropathy, unspecified; M47.22 Other spondylosis with radiculopathy, cervical region; F17.210 Nicotine dependence, cigarettes, uncomplicated; Z86.711 Personal history of pulmonary embolism
CPT/HCPCS: 36415; 80053; 83735; 85025; 87636; 96361; 96374; 99284; J0780; J7030

== ENCOUNTER 2023-07-12 11:23 | Outpatient (CLI) | payer MEDICARE, SELFPAY ==
--- NOTE | ~2023-07-12 | XR_ITS ---
AP and lateral views of the left hip Clinical history: Pain Findings: No acute fracture or dislocation is seen. Osseous alignment is anatomic. Left hip joint spa ce is preserved. Soft tissues are unremarkable. Impression: No significant abnormality is seen. Reviewed, dictated and finalized at location . HARDENER Impression: No significant abnormality is seen.
== END 2023-07-12 11:24 | disposition home or self-care (01) ==
PROVIDERS: PCP Nurse Practitioner; Visit Provider Pain Medicine Pain Medicine
DX: M25.552 Pain in left hip (principal)
CPT/HCPCS: 73502

== ENCOUNTER 2023-07-27 13:36 | Emergency (ER) | payer MEDICARE, SELFPAY ==
--- NOTE | ~2023-07-27 | XR_ITS ---
XR foot LT min 3V DATE: 07/27/2023 13:57 INDICATION: Slipped on steps 2 days ago. Distal left foot pain. TECHNIQUE: 4 views COMPARISON: None FINDINGS: There is a very subtle virtually nondisplaced fracture at the lateral aspect of the neck of the third metatarsal bone. No other fracture or dislocation is detected. Mild posterior calcaneal enthesopathy. IMPRESSION: Subtle virtually nondisplaced lateral neck fracture of third metatarsal bone Reviewed, dictated and finalized at location B. WHEELER IMPRESSION: Subtle virtually nondisplaced lateral neck fracture of third metata rsal bone
--- NOTE | 2023-07-27 13:37 | ED.LOWEXIN ---
HPI - Extremity Injury (Lower) General Chief Complaint: Extremity Injury, Lower Stated Complaint: INJURED L FOOT/TOE Time Seen by Provider: 07/27/23 13:37 Source: patient and RN notes reviewed History of Present Illness HPI Narrative: Patient is a 57-year-old male who presents to urgent care with complaints of left great toe and left foot pain. Patient states that yesterday he missed a step walking down his porch and has been using [id number] medication at home. Patient denies any other injuries from the incident. Patient states that he was wearing slippers at the time of the incident. Some parts of this dictation were generated by voice recognition software and may contain typographical and/or grammatical inaccuracies. Related Data Home Medications Medication Instructions Recorded Confirmed sildenafil 50 mg tablet (Viagra) 100 mg PO DAILY PRN Sexual Activity 05/28/19 07/27/23 hydrocodone 7.5 mg-acetaminophen 1 tablet PO Q12H PRN Back Pain 12/11/21 07/27/23 325 mg tablet esomeprazole magnesium 20 mg 20 mg PO DAILY 10/21/22 07/27/23 tablet,delayed release (Nexium 24HR) Allergies Allergy/AdvReac Type Severity Reaction Status Date / Time cefadroxil Allergy Mild Hives Verified 07/27/23 13:41 codeine Allergy Mild Irritable Verified 07/27/23 13:41 Review of Systems Review of Systems: CONSTITUTIONAL: Denies fever, chills, or sweats. EYES: Denies visual changes, redness, or discharge. ENT: Denies rhinorrhea, congestion, sore throat, or otalgia. CARDIOVASCULAR: Denies chest pain, palpitations, or edema. RESPIRATORY: Denies cough or dyspnea. GASTROINTESTINAL: Denies abdominal pain, nausea, vomiting, or diarrhea. GENITOURINARY: Denies dysuria or hematuria. SKIN: Denies rash or itching. MUSCULOSKELETAL: Reports of left great toe and left foot pain NEUROLOGIC: Denies headache, numbness, or weakness. All other systems reviewed are negative, except as documented in HPI. [facility] Past Medical History Medical History Anemia Anxiety Cervical radiculopathy due to degenerative joint disease of spine Chronic obstructive pulmonary disease Erectile dysfunction Essential hypertension Lumbar degenerative disc disease Mixed hyperlipidemia Neuropathy Pulmonary embolism without acute cor pulmonale Tobacco abuse Surgical History Surgical History H/O hernia repair History of laminectomy Family History Family History Father Carcinoma of colon Mother Heart disease Hypertension Melanoma Social History Social History Social History: Patient currently lives with his mother and is on disability. Patient states that he does not have any pets and that his mother would be his surrogate if he was unable to make his own decisions. Patient wishes to be a full code at this time Smoking packs per day: 1 Smoking cigarettes per day: 20.0 Years smoked: 46 Smoking pack-years: 46.00 Smoking status: Current every day smoker Tobacco type: cigarettes Second hand tobacco smoke exposure: Yes Alcohol intake: former Substance use: never Substance use type: does not use Lack of Transportation: No Lack of Food: Never True Current Housing: I Have Housing Concerned About Future Housing: No Difficulty Paying Gas/Electric Bills: YES Difficulty Paying for Meds: No Currently Unemployed: No Education: Grade School Difficulty w/ Childcare or Family Care: YES Living arrangements: with family Occupation/Education: other Additional occupation/education comments: Disability Gender identity (if verbalized by the patient): Male Sexual Orientation (if Verbalized by the Patient): Straight or Heterosexual Spiritual care concerns: No Agree to blood products: Yes Comments At
[2023-07-27 13:48] VITALS: BP 142/96; PULSE 77; RESP 16; TEMP 36.4; O2SAT 100
== END 2023-07-27 14:40 | disposition home or self-care (01) ==
PROVIDERS: Emergency Provider Nurse Practitioner Family; PCP Nurse Practitioner
DX: S92.335A Nondisplaced fracture of third metatarsal bone, left foot, initial encounter for closed fracture (principal); W10.9XXA Fall (on) (from) unspecified stairs and steps, initial encounter; J44.9 Chronic obstructive pulmonary disease, unspecified; I10 Essential (primary) hypertension; E78.2 Mixed hyperlipidemia; M51.36 Other intervertebral disc degeneration, lumbar region; M47.22 Other spondylosis with radiculopathy, cervical region; Z86.711 Personal history of pulmonary embolism; F17.210 Nicotine dependence, cigarettes, uncomplicated
CPT/HCPCS: 73630; 99214; G0463

== ENCOUNTER 2023-10-24 10:37 | Outpatient (CLI) | payer MEDICARE, SELFPAY ==
--- NOTE | ~2023-10-24 | CT_ITS ---
CT Scan of the Chest without Contrast: Clinical Indication: Lung cancer screening, nicotine dependence Technique: Contiguous sections were acquired throughout the chest without intravenous contrast. Dose reduction technique was used on this scan by utilizing automated exposure control and iterative recon struction technique. The dose-length product (DLP) was 81.49 mGy-cm. Findings: There is no evidence of any significant mediastinal, hilar or axillary lymphadenopathy. Coronary rosamaria ry calcifications are present. There is no evidence of pleural or pericardial effusion. 3 mm central right middle lobe pulmonary nodule noted. There are several peripheral nodules and focal areas of consolidation the right middle lobe and lingula. Images through the upper abdomen reveal no abnormalities. Impression: Lung RADS 2S: Benign appearance. [address] advised. Findings suggestive of infectious process of the right middle lobe and lingula. Consider short interv al follow-up to assess for resolution after treatment as indicated. Reviewed, dictated and finalized at [facility]. Impression: Lung RADS 2S: Benign appearance. [address] advised. Findings suggestive of infectious process of the right middle lobe and lingula. Consider short interval follow-up to assess for resolution after treatment as indicated.
== END 2023-10-24 10:38 | disposition home or self-care (01) ==
PROVIDERS: PCP Nurse Practitioner; Visit Provider Nurse Practitioner Family
DX: Z12.2 Encounter for screening for malignant neoplasm of respiratory organs (principal); R91.8 Other nonspecific abnormal finding of lung field; Z87.891 Personal history of nicotine dependence
CPT/HCPCS: 71271

== ENCOUNTER 2023-11-15 13:58 | Outpatient (CLI) | payer MEDICARE, SELFPAY ==
--- NOTE | ~2023-11-15 | CT_ITS ---
Non-contrast CT scan of the Abdomen and Pelvis Clinical indication: Abnormal weight loss Technique: 2.5 mm axial scans were obtained through the abdomen and pelvis without intravenous or or al contrast. Dose reduction technique was used on this scan by utilizing automated exposure control a nd iterative reconstruction technique. The dose-length product (DLP) was 383.05 mGy-cm. Findings: Images through the lung bases reveal patchy airspace consolidation the right middle lobe, and more focally in the inferomedial right lower lobe. There is no evidence of renal or ureteral calculi. The kidneys and the ureters are nondilated. The liver, spleen, pancreas, gallbladder, and adrenals appear normal. There are atherosclerotic calci fications of the aorta. There is no evidence of bowel obstruction. Moderate to large amount of stool present. Images through the pelvis were performed. There is no evidence of ascites or lymphadenopathy. Urinary bladder unremarkable. No pelvic mass seen. Impression: Patchy right middle lobe and right lower lobe pneumonia. Constipation. Reviewed, dictated and finalized at [facility]. Impression: Patchy right middle lobe and right lower lobe pneumonia. Constipation.
== END 2023-11-15 13:59 | disposition home or self-care (01) ==
PROVIDERS: PCP Nurse Practitioner; Visit Provider Nurse Practitioner
DX: R63.4 Abnormal weight loss (principal); J18.9 Pneumonia, unspecified organism; K59.00 Constipation, unspecified
CPT/HCPCS: 74176

== ENCOUNTER 2023-12-16 12:48 | Outpatient (CLI) | payer MEDICARE, SELFPAY ==
--- NOTE | 2023-12-16 12:53 | ECHO_ITS ---
Patient Info Name: Denny Proctor Age: 58 years : 1965 Gender: Male Ht: 67 in Wt: 185 lbs BSA: 2.01 m2 HR: 67 bpm BP: 125 / 87 mmHg Technical Quality: Good Exam Date: 12/16/2023 1:08 PM Exam Location: Echo Lab Patient Status: Outpatient Admit Date: 12/16/2023 Staff Ordering Physician: Jitendra Fitzpatrick APRN Windows Mobile Developer: Bo Quijano RDCS Attending Provider: Jitendra Fitzpatrick APRN Referring Physician: Amari MOORE; Exam Type: CA echo doppler color flow Study Info Indications - rapid weight fuctuations Complete two-dimensional, color flow and Doppler transthoracic echocardiogram is performed. Summary 1. Complete two-dimensional, color flow and Doppler transthoracic echocardiogram is performed. 2. Left ventricular chamber dimension is normal. 3. Left ventricular systolic function is normal, estimated at 60-65%. 4. The left ventricular diastolic function is grade I diastolic dysfunction. 5. E/e' 8 is minimally elevated. 6. There is trace tricuspid valve regurgitation. 7. No pulmonary hypertension, estimated pulmonary arterial systolic pressure is 13 mmHg. Left Ventricle E/e' 8 is minimally elevated. Left ventricular chamber dimension is normal. Left ventricular systolic function is normal, estimated at 60-65%. The left ventricular diastolic function is grade I diastolic dysfunction. Right Ventricle Right ventricular systolic function is normal and with normal TAPSE 2.7 cm. Right ventricular chamber dimension is normal. Left Atria Left atrial chamber dimension is normal. Right Atria Right atrial chamber dimension is normal. Aortic Valve The aortic valve is trileaflet. There is no aortic valve stenosis. There is no aortic valve regurgitation. Pulmonic Valve There is no pulmonic regurgitation. Mitral Valve There is no mitral valve stenosis. There is no mitral valve regurgitation. Tricuspid Valve There is trace tricuspid valve regurgitation. No pulmonary hypertension, estimated pulmonary arterial systolic pressure is 13 mmHg. Pericardium/Pleural There is no pericardial effusion. Inferior Vena Cava Normal inferior vena cava with >50% collapse upon inspiration consistent with normal right atrial pressure, 5 mmHg. Aorta The aortic root size at the sinus of Valsalva is normal. Left Ventricular Outflow Tract Name Value Normal LVOT 2D LVOT Diameter 2.0 cm LVOT Doppler LVOT Peak Gradient 5 mmHg LVOT Mean Gradient 3 mmHg LVOT VTI 24 cm LVOT VTI/AV VTI Ratio 0.7 LVOT Stroke Volume 79 ml LVOT CO 6.0 l/min LVOT CI 3.0 l/min/m2 Pulmonic Valve Name Value Normal PV Doppler PV Peak Gradient 5 mmHg Mitral Valve Name
== END 2023-12-16 12:49 | disposition home or self-care (01) ==
LOC: ANHCARD 12:51
PROVIDERS: PCP Nurse Practitioner; Visit Provider Nurse Practitioner
DX: R68.89 Other general symptoms and signs (principal); R53.83 Other fatigue
CPT/HCPCS: 93306

== ENCOUNTER 2024-01-16 11:55 | Outpatient (CLI) | payer MEDICARE, SELFPAY ==
--- NOTE | ~2024-01-16 | XR_ITS ---
Clinical Indication: Pneumonia PA and lateral views of the chest: Comparison: 01/07/2023 Findings: The lungs are clear, without evidence of focal consolidation or pleural effusion. Cardiome diastinal silhouette is within normal limits. Bones and soft tissues are unremarkable. Impression: Normal chest. Reviewed, dictated and finalized at location . Impression: Normal chest.
== END 2024-01-16 11:56 | disposition home or self-care (01) ==
LOC: ANHIMG 11:55
PROVIDERS: PCP Nurse Practitioner; Visit Provider Nurse Practitioner Family
DX: J18.9 Pneumonia, unspecified organism (principal)
CPT/HCPCS: 71046

== ENCOUNTER 2024-01-19 16:21 | Emergency (ER) | payer MEDICARE, SELFPAY ==
--- NOTE | ~2024-01-19 | XR_ITS ---
EXAMINATION: XR knee LT 3V DATE: 01/19/2024 16:45 INDICATION: Posterior left knee pain post fall TECHNIQUE: Anteroposterior, sunrise and crosstable lateral views of the left knee were obtained COMPARISON: None. FINDINGS: Alignment is normal. No fracture. Joint spaces appear normal on nonweightbearing imaging with no ost eophytosis. Moderate-sized enthesophyte at the proximal pole of the patella additional mild hypertrop hic change at the anterior tibial tuberosity. No joint effusion/layering lipohemarthrosis. Soft tissu es are unremarkable. IMPRESSION: 1. No left knee joint effusion or acute osseous abnormality. Reviewed, dictated and finalized at location A.
--- NOTE | 2024-01-19 16:24 | ED.LOWEXIN ---
HPI - Extremity Injury (Lower) General Chief Complaint: Extremity Injury, Lower Stated Complaint: Left Knee Pain Time Seen by Provider: 01/19/24 16:24 Source: patient Mode of arrival: ambulatory Limitations: no limitations History of Present Illness HPI Narrative: Denny is a 58 year old male patient presenting to the clinic today with complaints of left knee pain after falling approximately 1 hour ago. He reports that he was going out to the garage and fell as though his knee gave out and landed on the anterior knee. Also reporting pain to the calf musculature. He denies hitting his head or any loss of consciousness or neck pain. Does have abrasions to the anterior knee. Related Data Home Medications Medication Instructions Recorded Confirmed sildenafil 50 mg tablet (Viagra) 100 mg PO DAILY PRN Sexual Activity 05/28/19 01/19/24 hydrocodone 7.5 mg-acetaminophen 1 tablet PO Q12H PRN Back Pain 12/11/21 01/19/24 325 mg tablet esomeprazole magnesium 20 mg 20 mg PO DAILY 10/21/22 01/19/24 tablet,delayed release (Nexium 24HR) Allergies Allergy/AdvReac Type Severity Reaction Status Date / Time cefadroxil Allergy Mild Hives Verified 01/19/24 16:31 codeine Allergy Mild Irritable Verified 01/19/24 16:31 Review of Systems Review of Systems: Pertinent positives per HPI. Patient denies any fever, chills, rash, headache, visual changes, dizziness, cough, runny nose, sore throat, shortness of breath, chest pain, palpitations, nausea, vomiting, diarrhea, constipation, abdominal pain, or any urinary issues. [facility] Past Medical History Medical History Anemia Anxiety Cervical radiculopathy due to degenerative joint disease of spine Chronic obstructive pulmonary disease Erectile dysfunction Essential hypertension Lumbar degenerative disc disease Mixed hyperlipidemia Neuropathy Pulmonary embolism without acute cor pulmonale Tobacco abuse Surgical History Surgical History H/O hernia repair History of carpal tunnel surgery History of laminectomy Family History Family History Father Carcinoma of colon Mother Heart disease Hypertension Melanoma Unknown Depression Brain cancer Liver cancer Social History Social History Social History: Patient currently lives with his mother and is on disability. Patient states that he does not have any pets and that his mother would be his surrogate if he was unable to make his own decisions. Patient wishes to be a full code at this time Smoking packs per day: 1 Smoking cigarettes per day: 20.0 Years smoked: 46 Smoking pack-years: 46.00 Smoking status: Current every day smoker Tobacco type: cigarettes Second hand tobacco smoke exposure: Yes Alcohol intake: former Substance use: never Substance use type: does not use Lack of Transportation: No Lack of Food: Never True Current Housing: I Have Housing Concerned About Future Housing: No Difficulty Paying Gas/Electric Bills: YES Difficulty Paying for Meds: No Currently Unemployed: No Education: Grade School Difficulty w/ Childcare or Family Care: YES Living arrangements: with family Occupation/Education: other Additional occupation/education comments: Disability Gender identity (if verbalized by the patient): Male Sexual Orientation (if Verbalized by the Patient): Straight or Heterosexual Spiritual care concerns: No Agree to blood products: Yes Comments At the time of my signature, I reviewed and agree with the nursing past medical, surgical, social, and family history. There is no relevant family history pertinent to the patient complaint. Exam Narrative: General: Well-developed, well nourished, in no apparent distress Head: Normoceph
[2024-01-19 16:33] VITALS: BP 134/70; PULSE 57; RESP 16; TEMP 37.1; O2SAT 97
== END 2024-01-19 16:59 | disposition home or self-care (01) ==
PROVIDERS: Emergency Provider Nurse Practitioner Family; PCP Nurse Practitioner
DX: S86.112A Strain of other muscle(s) and tendon(s) of posterior muscle group at lower leg level, left leg, initial encounter (principal); W19.XXXA Unspecified fall, initial encounter; S80.212A Abrasion, left knee, initial encounter; M25.562 Pain in left knee; F17.210 Nicotine dependence, cigarettes, uncomplicated; J44.9 Chronic obstructive pulmonary disease, unspecified; I10 Essential (primary) hypertension; E78.2 Mixed hyperlipidemia; G62.9 Polyneuropathy, unspecified; M47.22 Other spondylosis with radiculopathy, cervical region; M51.36 Other intervertebral disc degeneration, lumbar region; Z86.711 Personal history of pulmonary embolism
CPT/HCPCS: 73562; 99213; G0463

== ENCOUNTER 2024-04-15 16:52 | Emergency (ER) | payer MEDICARE, SELFPAY ==
[2024-04-15 17:10] VITALS: BP 115/63; PULSE 59; RESP 16; TEMP 36.1; O2SAT 98
--- NOTE | 2024-04-15 18:04 | ED.SKABFB ---
HPI - Skin/Abscess/Foreign Bdy General Chief complaint: Skin/Abscess/Foreign Body Stated complaint: ring finger right hand issue Time Seen by Provider: 04/15/24 18:05 Source: patient, RN notes reviewed and old records reviewed Mode of arrival: ambulatory Limitations: no limitations History of Present Illness HPI narrative: Patient presents complaining of pain, redness, swelling surrounding the right 4th fingernail. He reports symptoms began a couple days ago, have been worsening. He denies any drainage. He reports he initially had a hangnail, says he tried to remedy this on his own, and this is when swelling began. The area is tender to touch. He has not been taking anything for his symptoms. Related Data Home Medications Medication Instructions Recorded Confirmed sildenafil 50 mg tablet (Viagra) 100 mg PO DAILY PRN Sexual Activity 05/28/19 01/31/24 hydrocodone 7.5 mg-acetaminophen 1 tablet PO Q12H PRN Back Pain 12/11/21 01/31/24 325 mg tablet esomeprazole magnesium 20 mg 20 mg PO DAILY 10/21/22 01/31/24 tablet,delayed release (Nexium 24HR) Allergies Allergy/AdvReac Type Severity Reaction Status Date / Time cefadroxil Allergy Mild Hives Verified 04/15/24 16:56 codeine Allergy Mild Irritable Verified 04/15/24 16:56 Review of Systems Review of Systems: All systems reviewed & are unremarkable except as noted in HPI and below Constitutional: Constitutional: Reports no additional constitutional complaints ENT: Reports system reviewed and no additional complaints, except as documented Cardiovascular: Cardiovascular: Reports no additional cardiovascular complaints Respiratory: Respiratory: Reports no additional respiratory complaints Gastrointestinal: Gastrointestinal: Reports no additional gastrointestinal complaints Integumentary/Breasts: Skin/Breast: Reports system reviewed and no additional complaints, except as docu, Reports as per HPI, Reports swelling and Reports nail changes PMFSH Past Medical History Medical History Anemia Anxiety Cervical radiculopathy due to degenerative joint disease of spine Chronic obstructive pulmonary disease Erectile dysfunction Essential hypertension Lumbar degenerative disc disease Mixed hyperlipidemia Neuropathy Pulmonary embolism without acute cor pulmonale Tobacco abuse Surgical History Surgical History H/O hernia repair History of carpal tunnel surgery History of laminectomy Family History Family History Father Carcinoma of colon Mother Heart disease Hypertension Melanoma Unknown Depression Brain cancer Liver cancer Social History Social History Social History: Patient currently lives with his mother and is on disability. Patient states that he does not have any pets and that his mother would be his surrogate if he was unable to make his own decisions. Patient wishes to be a full code at this time Smoking packs per day: 1 Smoking cigarettes per day: 20.0 Years smoked: 46 Smoking pack-years: 46.00 Smoking status: Current every day smoker Tobacco type: cigarettes Second hand tobacco smoke exposure: Yes Alcohol intake: former Substance use: never Substance use type: does not use Lack of Transportation: No Lack of Food: Never True Current Housing: I Have Housing Concerned About Future Housing: No Difficulty Paying Gas/Electric Bills: YES Difficulty Paying for Meds: No Currently Unemployed: No Education: Grade School Difficulty w/ Childcare or Family Care: YES Living arrangements: with family Occupation/Education: other Additional occupation/education comments: Disability Gender identity (if verbalized by the patient): Male Sexual Orientation (if Verbalized by the Patient): Straight or Hete
== END 2024-04-15 18:21 | disposition home or self-care (01) ==
PROVIDERS: Emergency Provider Nurse Practitioner Family; PCP Nurse Practitioner
DX: L03.011 Cellulitis of right finger (principal); I10 Essential (primary) hypertension; E78.2 Mixed hyperlipidemia; G62.9 Polyneuropathy, unspecified; J44.9 Chronic obstructive pulmonary disease, unspecified; M51.369 Other intervertebral disc degeneration, lumbar region without mention of lumbar back pain or lower extremity pain; M47.22 Other spondylosis with radiculopathy, cervical region; Z86.711 Personal history of pulmonary embolism
CPT/HCPCS: 99213; G0463

== ENCOUNTER 2024-05-30 08:54 | Outpatient (CLI) | payer MEDICARE, SELFPAY ==
--- NOTE | ~2024-05-30 | XR_ITS ---
Left Knee Technique: AP, lateral, and sunrise views were obtained. Clinical History: Pain Findings: No fracture or dislocation is seen. Osseous alignment is anatomic. Joint spaces are preserv ed without degenerative or erosive change. Soft tissues are unremarkable. No joint effusion is seen. Impression: Unremarkable left knee radiographs. Reviewed, dictated and finalized at location . AR SETTER Impression: Unremarkable left knee radiographs.
== END 2024-05-30 08:55 | disposition home or self-care (01) ==
PROVIDERS: PCP Nurse Practitioner; Visit Provider Nurse Practitioner
DX: M25.562 Pain in left knee (principal)
CPT/HCPCS: 73562

== ENCOUNTER 2024-06-13 13:58 | Emergency (ER) | payer MEDICARE, SELFPAY ==
--- NOTE | ~2024-06-13 | XR_ITS ---
EXAMINATION: XR chest 2V DATE: 06/13/2024 14:16 INDICATION: Cough. TECHNIQUE: Frontal and lateral views of the chest were obtained. COMPARISON: Chest 2 view 01/16/2024 FINDINGS: There is no pneumonia, pleural effusion, or pneumothorax. The heart size is normal. IMPRESSION: 1. No acute cardiopulmonary disease. Reviewed, dictated and finalized at location A. RUMENTATION AND CONTROLS TECHNICIAN
[2024-06-13 14:08] VITALS: BP 127/95; PULSE 81; RESP 16; TEMP 37; O2SAT 99
--- NOTE | 2024-06-13 14:20 | ED.URI ---
HPI - URI/Sore Throat General Chief Complaint: Upper Respiratory Infection Stated Complaint: COLD/CHEST SYMPTOMS/COUGH Source: patient Mode of arrival: ambulatory Limitations: no limitations History of Present Illness HPI Narrative: 58-year-old male with a history of COPD presented for complaint of cough and chest congestion for 1 week. He states ?I have a bad cold. ? Endorses nausea today. Denies nasal congestion, shortness of breath, wheezing, vomiting, diarrhea, fevers or lethargy. Taking [id number] cough and cold medication. Smokes 1 ppd. Related Data Home Medications Medication Instructions Recorded Confirmed sildenafil 50 mg tablet (Viagra) 100 mg PO DAILY PRN Sexual Activity 05/28/19 05/29/24 hydrocodone 7.5 mg-acetaminophen 1 tablet PO Q12H PRN Back Pain 12/11/21 05/29/24 325 mg tablet esomeprazole magnesium 20 mg 20 mg PO DAILY 10/21/22 05/29/24 tablet,delayed release (Nexium 24HR) Allergies Allergy/AdvReac Type Severity Reaction Status Date / Time cefadroxil Allergy Mild Hives Verified 05/29/24 10:03 codeine Allergy Mild Irritable Verified 05/29/24 10:03 Review of Systems Review of Systems: CONSTITUTIONAL: Denies body aches, fever, chills, or sweats. EYES: Denies visual changes, redness, or discharge. ENT: Denies rhinorrhea, congestion, sore throat, or otalgia. CARDIOVASCULAR: Denies chest pain, palpitations, or edema. RESPIRATORY: Reports cough, denies sob, wheezing. GASTROINTESTINAL: Denies abdominal pain, nausea, vomiting, or diarrhea. MUSCULOSKELETAL: Denies back pain, joint pain, or myalgia. NEUROLOGIC: Denies headache, numbness, tingling, or weakness. All systems reviewed & are unremarkable except as noted in HPI and below PMFSH Past Medical History Medical History Anemia Anxiety Cervical radiculopathy due to degenerative joint disease of spine Chronic obstructive pulmonary disease Erectile dysfunction Essential hypertension Lumbar degenerative disc disease Mixed hyperlipidemia Neuropathy Pulmonary embolism without acute cor pulmonale Tobacco abuse Surgical History Surgical History H/O hernia repair History of carpal tunnel surgery History of laminectomy Family History Family History Father Carcinoma of colon Mother Heart disease Hypertension Melanoma Unknown Depression Brain cancer Liver cancer Social History Social History Social History: Patient currently lives with his mother and is on disability. Patient states that he does not have any pets and that his mother would be his surrogate if he was unable to make his own decisions. Patient wishes to be a full code at this time Smoking packs per day: 1 Smoking cigarettes per day: 20.0 Years smoked: 46 Smoking pack-years: 46.00 Smoking status: Current every day smoker Tobacco type: cigarettes Second hand tobacco smoke exposure: Yes Alcohol intake: former Substance use: never Substance use type: does not use Lack of Transportation: No Lack of Food: Never True Current Housing: I Have Housing Concerned About Future Housing: No Difficulty Paying Gas/Electric Bills: YES Difficulty Paying for Meds: No Currently Unemployed: No Education: Grade School Difficulty w/ Childcare or Family Care: YES Living arrangements: with family Occupation/Education: other Additional occupation/education comments: Disability Gender identity (if verbalized by the patient): Male Sexual Orientation (if Verbalized by the Patient): Straight or Heterosexual Spiritual care concerns: No Agree to blood products: Yes Comments At time of signature, I have reviewed and agree with nursing past medical, surgical, social and family history unless otherwise noted. Please see nursing chart for further information. There is no relevant family history pertinent to the presenting complaint Exam Narrative: GENERAL: Mildly ill-appearing, in no acute distress. EYES: EOMI. No redness or drainage. Conjunctivae normal. ENT: Mucous membranes pink and moist. No rhinorrhea. TMs normal bilaterally. Throat normal. Uvula midline. NECK: Normal AROM. Supple. CHEST: No respiratory distress. Lungs diminished to all johnson. HEART: Regular rate and rhythm. No murmur appreciated. EXTREMITIES: Normal range of motion. No edema. SKIN: Warm, dry. Capillary refill normal. Normal skin turgor. NEURO: Alert and oriented x3. Gait steady. PSYCH: Normal affect. Course Course Emergency Course: Patient is aware of diagnosis, understands and agrees to treatment plan. Anticipatory guidance given. Patient agrees to follow-up as directed and is aware of reasons to seek care at the emergency department. Portions of this record may have been created with voice recognition software Level of Care: Express Care Visit Vital Signs Vital signs: Vital Signs Temperature 98.6 F 06/13/24 14:08 Pulse Rate 81 06/13/24 14:08 Respiratory Rate 16 06/13/24 14:08 Blood Pressure 127/95 H 06/13/24 14:08 Pulse Oximetry 99 06/13/24 14:08 Temperature 98.6 F 06/13/24 14:08 Pulse Rate 81 06/13/24 14:08 Respiratory Rate 16 06/13/24 14:08 Blood Pressure 127/95 H 06/13/24 14:08 Pulse Oximetry 99 06/13/24 14:08 MDM - URI/Sore Throat MDM Narrative Medical decision making narrative: Discussed physical exam findings and chest x-ray. Reviewed prescriptions. Advised supportive measures and signs/symptoms to go to the ER. Pt is appropriate for outpt treatment and f/u. Differential Diagnosis Differential diagnosis: Likely upper respiratory infection, sinusitis, viral infection, bronchitis and other (Pneumonia, COPD exacerbation) Imaging Data Radiologist's impression: Patient: Denny Proctor : 1965 MR#: [id number] Age: 58 Acct:[id number] Loc: [facility] ADM Date: 06/13/24Attending Dr: Ordering Physician: Lia Martin APRN Date of Service: 06/13/24 Procedure(s): XR chest 2V Accession Number(s): [id number] cc: Jitendra Fitzpatrick APN; Lia Martin APRN~ EXAMINATION: XR chest 2V DATE: 06/13/2024 14:16 INDICATION: Cough. TECHNIQUE: Frontal and lateral views of the chest were obtained. COMPARISON: Chest 2 view 01/16/2024 FINDINGS: There is no pneumonia, pleural effusion, or pneumothorax. The heart size is normal. IMPRESSION: 1. No acute cardiopulmonary disease. Discharge Plan Discharge Clinical Impression: COPD exacerbation Patient Disposition: Home, Self-Care Condition: Stable Instructions: Antibiotic Form, COPD (Chronic Obstructive Pulmonary Disease) (ED) Additional Instructions: Take medication as directed Recommend Flonase spray and Zyrtec (or Claritin/Isabel) over the counter Cough syrup may cause drowsiness; avoid driving or take it at night time. Tylenol 1000mg every 8 hours as needed for pain Symptomatic treatment includes: rest, fluids, and increase humidity of the air at home. Follow up with your primary care provider in 1 week Go to the ER for worsening symptoms or concerns Prescriptions: New azithromycin [Zithromax Z-Ulises] 250 mg tablet See Rx Instructions .ROUTE .COMPLEX Qty: 6 0RF Rx Instructions: For 250 mg dose pack: take 500 mg today (day 1), then 250 mg for 4 days (days 2-5) methylprednisolone [Medrol (Ulises)] 4 mg tablets,dose pack See Rx Instructions .ROUTE .COMPLEX Qty: 21 0RF Rx Instructions: orally per package directions No Action doxycycline hyclate 100 mg tablet 100 mg PO DAILY Qty: 14 0RF esomeprazole magnesium [Nexium 24HR] 20 mg tablet,delayed release (DR/EC) 20 mg PO DAILY Stiolto Respimat 2.5-2.5 mcg/actuation mist 2 puff inhalation Q24H Qty: 4 11RF albuterol sulfate 90 mcg/actuation HFA aerosol inhaler 1 - 2 puff inhalation Q4-6H PRN (Reason: shortness of breath or wheezing) Qty: 8.5 2RF diclofenac sodium 75 mg tablet,delayed release (DR/EC) 75 mg PO BID Qty: 30 0RF hydrocodone-acetaminophen 7.5-325 mg tablet 1 tablet PO Q12H PRN (Reason: Back Pain) sildenafil [Viagra] 50 mg tablet 100 mg PO DAILY PRN (Reason: Sexual Activity) Rx Instructions: TAKE 2 TABLET BY ORAL ROUTE DAILY NEEDED APPROXIMATELY 1 HOUR BEFORE SEXUAL ACTIVITY amlodipine 10 mg tablet 10 mg PO DAILY Qty: 90 1RF oxybutynin chloride 5 mg tablet 5 mg PO DAILY Qty: 90 1RF sertraline 100 mg tablet 100 mg PO DAILY Qty: 90 1RF gabapentin 300 mg capsule 300 mg PO TID 90 Days Qty: 270 1RF ondansetron 4 mg tablet,disintegrating See Rx Instructions .ROUTE .COMPLEX Qty: 40 1RF Dose Instruction: DISSOLVE 1 TABLET IN MOUTH EVERY 8 HOURS NEEDED FOR NAUSEA AND VOMITING Rx Instructions: DISSOLVE 1 TABLET IN MOUTH EVERY 8 HOURS NEEDED FOR NAUSEA AND VOMITING Follow-up/Referrals: Jitendra Fitzpatrick APRN [Primary Care Provider] - Time of Disposition: 14:28
== END 2024-06-13 14:30 | disposition home or self-care (01) ==
PROVIDERS: Emergency Provider Nurse Practitioner Family; PCP Nurse Practitioner
DX: J44.1 Chronic obstructive pulmonary disease with (acute) exacerbation (principal); E78.2 Mixed hyperlipidemia; I10 Essential (primary) hypertension; I26.99 Other pulmonary embolism without acute cor pulmonale; Z86.711 Personal history of pulmonary embolism
CPT/HCPCS: 71046; 99213; G0463

== ENCOUNTER 2024-08-07 07:58 | Inpatient (IN) | payer MEDICARE, SELFPAY ==
[2024-08-07] VITALS (17 sets, daily range): BP systolic 102–119; BP diastolic 61–70; PULSE 64–93; RESP 20–28; TEMP 36.6–36.8; O2SAT 84–95; BMI 29.3
--- NOTE | ~2024-08-07 | XR_ITS ---
EXAMINATION: XR chest 2V DATE: 08/09/2024 14:30 INDICATION: Hypoxia TECHNIQUE: PA and lateral views of the chest were obtained. COMPARISON: Chest radiograph dated 08/07/2024 FINDINGS: No focal airspace opacities, pulmonary edema, pleural effusion or pneumothorax. The cardiomediastinal silhouette is normal. Persistent gas-filled colonic interposition below the anterior right hemidiaph ragm. Mild thoracic spondylosis with chronic mild anterior wedging of a few mid and lower thoracic ve rtebral bodies. IMPRESSION: 1. No acute cardiopulmonary disease. Reviewed, dictated and finalized at location B. AL PLATE FILLER
--- NOTE | ~2024-08-07 | XR_ITS ---
Clinical Indication: Shortness of breath PA and lateral views of the chest: Comparison: 06/13/2024 Findings: The lungs are clear, without evidence of focal consolidation or pleural effusion. Cardiome diastinal silhouette is within normal limits. Bones and soft tissues are unremarkable. Impression: Normal chest. Reviewed, dictated and finalized at [facility]. [facility] ROOM Impression: Normal chest.
--- NOTE | 2024-08-07 08:04 | ECG_ITS ---
Test Date: 2024-08-07 08:04:30 Measurements Intervals Talent Rate: 88 P: 64 CA: 134 QRS: 78 QRSD: 82 T: 65 QT: 344 QTc: 417 Interpretive Statements SINUS RHYTHM No previous ECG available for comparison Electronically Signed On 08-07-2024 16:17:11 RECRUITMENT INTERN by Jason Johnson M.D.
[2024-08-07 08:25] LABS: Basophils Absolute Auto 0.1 K/mm3 (0.0-0.1); Basophils Percent Auto 0.5 % (0.2-1.2); Eosinophils Percent Auto 0.2 % (0-4.4); Hematocrit 35.2 % (42.0-52.0); Hemoglobin 11.9 g/dL (14.0-18.0); Immature Granulocyte Absolute 0.05 K/mm3 (0.00-0.031); Immature Granulocyte Percent A 0.4 % (0-0.5); Lymphocytes Absolute Auto 1.54 K/mm3 (0.9-3.2); Lymphocytes Percent Auto 11.9 % (18.3-44.2); Mean Corpuscular HGB Conc 33.8 g/dl (32-36); Mean Corpuscular Hemoglobin 33.7 pg (26-34); Mean Corpuscular Volume 99.7 fl (80-100); Mean Platelet Volume 8.5 fl (7.4-10.4); Monocytes Absolute Auto 0.8 K/mm3 (0.1-0.6); Monocytes Percent Auto 5.8 % (2.6-8.5); Neutrophils Absolute Auto 10.5 K/mm3 (1.3-6.7); Neutrophils Percent Auto 81.2 % (45.5-73.1); Platelet Count Result 348 k/mm3 (150-375); Red Blood Count 3.53 M/mm3 (4.6-6.20); Red Cell Distribution Width 13.7 % (11.5-14.5); White Blood Count 12.9 K/mm3 (4.5-10.0)
[2024-08-07 08:28] LABS: Alveolar/Arterial O2 Gradient 117.8 mmHg; Base Excess ABG 1.2 mEq/l (+/-2.0); Carboxyhemoglobin 6.2 % THb (0-2.0); Fractional Inspired Oxygen 32 %; HCO3 ABG 25.7 mEq/l (22.0-26.0); Methemoglobin ABG 0.3 %THb (0-1.5); Oxygen Content ABG 14.9 %vol (16.0-22.0); Oxygen Saturation ABG 92.8 % (95.0-100.0); PO2 ABG 63.6 mmHg (80.0-100.0); PO2 FiO2 Ratio Arterial Blood 1.99 %; Reduced Hemoglobin 6.6 %THb (0-5.0); Total Hemoglobin 12.2 g/dL (12.0-18.0); pH ABG 7.425 (7.350-7.450)
[2024-08-07 08:31] LABS: Oxyhemoglobin 86.9 % THb (90.0-100.0)
--- NOTE | 2024-08-07 08:31 | ED.GENADULT ---
HPI - General Adult General Chief complaint: Shortness of Breath/Dyspnea Stated complaint: SOB since yest Time Seen by Provider: 08/07/24 08:14 History of Present Illness HPI narrative: 58-year-old male with history of COPD and current smoker presents to the emergency department for evaluation for worsening shortness of breath. Patient is not on oxygen at home. Patient states that he was having some shortness of breath yesterday did have a very active day but then had worsening symptoms overnight. Due to his symptoms patient did call EMS and was found to be saturating approximately 60% on room air. Patient does feel improved on oxygen by nasal cannula. Patient denies any cardiac history denies any associated chest pain Related Data Home Medications ?Medication ?Instructions ?Recorded ?Confirmed ?Last Taken ?Type sildenafil 50 mg tablet (Viagra) 100 mg PO DAILY PRN Sexual Activity 05/28/19 08/07/24 Unknown History hydrocodone 7.5 mg-acetaminophen 1 tablet PO Q12H PRN Back Pain 12/11/21 08/07/24 08/07/24 History 325 mg tablet esomeprazole magnesium 20 mg 20 mg PO DAILY 10/21/22 08/07/24 Unknown History tablet,delayed release (Nexium 24HR) Allergies Allergy/AdvReac Type Severity Reaction Status Date / Time cefadroxil Allergy Mild Hives Verified 08/07/24 11:20 codeine Allergy Mild Irritable Verified 08/07/24 11:20 Review of Systems Review of Systems: All systems reviewed & are unremarkable except as noted in HPI and below PMFSH Past Medical History Medical History Cervical radiculopathy due to degenerative joint disease of spine Lumbar degenerative disc disease Neuropathy Anemia Anxiety Chronic obstructive pulmonary disease Erectile dysfunction Essential hypertension Mixed hyperlipidemia Pulmonary embolism without acute cor pulmonale Tobacco abuse Surgical History Surgical History History of carpal tunnel surgery H/O hernia repair History of laminectomy Family History Family History (Updated 08/07/24 @ 14:34 by Jen Rodriguez RN) Father Carcinoma of colon Brain cancer Liver cancer Mother Heart disease Melanoma Hypertension Depression Unknown No problems noted. Social History Social History Social History: Patient currently lives with his mother and is on disability. Patient states that he does not have any pets and that his mother would be his surrogate if he was unable to make his own decisions. Patient wishes to be a full code at this time Smoking packs per day: 1 Smoking cigarettes per day: 20.0 Years smoked: 46 Smoking pack-years: 46.00 Smoking status: Current every day smoker Second hand tobacco smoke exposure: Yes Alcohol intake: former Substance use: never Substance use type: does not use Do You Feel Safe in your Home?: Yes Lack of Transportation: No Lack of Food: Never True Current Housing: I Have Housing Concerned About Future Housing: No Difficulty Paying Gas/Electric Bills: YES Difficulty Paying for Meds: No Currently Unemployed: No Education: Grade School Difficulty w/ Childcare or Family Care: No Living arrangements: with family Occupation/Education: other Additional occupation/education comments: Disability Gender identity (if verbalized by the patient): Male Sexual Orientation (if Verbalized by the Patient): Straight or Heterosexual Spiritual care concerns: No Agree to blood products: Yes Exam Narrative: APPEARANCE: Well appearing, no pain, no distress, well-nourished. HEAD: normocephalic, atraumatic. EYES: PERRLA/EOMI, conjunctivae clear. NOSE: Normal no drainage EARS:TMS clear with good light reflex. THROAT: Pharynx clear, no exudate. NECK: Supple. No adenopathy, no masses. RESPIRATORY: Airway patent, respirations nonlabored. Clear to auscultation bilaterally, no rales, rhonchi, wheezing. CARDIOVASCULAR: Decreased breath sounds bilaterally ABDOMINAL: Soft, nontender, nondistended, normal bowel sounds MUSCULOSKELETAL: Moves all extremities. Strength/ROM intact, No edema, No calf tenderness. NEURO: Alert. Cranial nerves II through XII intact. Good gait. Good coordination SKIN: Warm, dry. Normal Color Course Vital Signs Vital signs: Vital Signs Temperature 97.8 F 08/07/24 07:58 Pulse Rate 92 08/07/24 07:58 Respiratory Rate 22 H 08/07/24 07:58 Blood Pressure 103/70 08/07/24 07:58 Pulse Oximetry 84 L 08/07/24 07:58 Oxygen Delivery Room Air 08/07/24 07:58 Temperature 97.8 F 08/07/24 07:58 Pulse Rate 75 08/07/24 16:00 Respiratory Rate 23 H 08/07/24 13:29 Blood Pressure 112/65 08/07/24 13:16 Pulse Oximetry 95 08/07/24 14:39 Oxygen Delivery Nasal Cannula 08/07/24 14:39 Oxygen Flow Rate 3 08/07/24 14:39 Medical Decision Making MDM Narrative Medical decision making narrative: 58-year-old male present to the emergency department for evaluation for worsening shortness of breath and hypoxia at home. Patient's oxygen has been stable at 3 L. Patient did have decreased breath sounds bilaterally and did improve with a breathing treatment. Patient is afebrile but does have a white blood cell count of 12.9 and stable hemoglobin 11.9. Patient did have a low PO2 ABG. This was prior to breathing treatment. No significant abnormalities patient was negative for influenza RSV and for COVID, chest x-ray shows no acute cardiopulmonary abnormality. Suspect COPD exacerbation. Patient does have a leukocytosis so blood cultures were ordered and patient is being started on antibiotics, Levaquin was selected. Due to a IV Levaquin shortage patient is being given a 1st dose of IV Levaquin but then will be transition to p.o. Levaquin. Case was discussed with the hospitalist and patient was accepted to [facility]. Patient was updated on the results of the workup plan for admission. All questions concerns were addressed. Differential Diagnosis Differential Diagnosis: Pneumonia, COPD, CHF, COVID, influenza, RSV Vital Signs Vital Signs: Vital Signs Temperature 97.8 F 08/07/24 07:58 Pulse Rate 92 08/07/24 07:58 Respiratory Rate 22 H 08/07/24 07:58 Blood Pressure 103/70 08/07/24 07:58 Pulse Oximetry 84 L 08/07/24 07:58 Oxygen Delivery Room Air 08/07/24 07:58 Temperature 97.8 F 08/07/24 07:58 Pulse Rate 75 08/07/24 16:00 Respiratory Rate 23 H 08/07/24 13:29 Blood Pressure 112/65 08/07/24 13:16 Pulse Oximetry 95 08/07/24 14:39 Oxygen Delivery Nasal Cannula 08/07/24 14:39 Oxygen Flow Rate 3 08/07/24 14:39 Lab Data Lab results reviewed: Yes I reviewed the patient's lab results. 08/07/24 08:13 08/07/24 08:13 Labs: Lab Results 08/07/24 08/07/24 08/07/24 Range/Units 08:13 08:23 08:26 WBC 12.9 H (4.5-10.0) K/mm3 RBC 3.53 L (4.6-6.20) M/mm3 Hgb 11.9 L (14.0-18.0) g/dL Hct 35.2 L (42.0-52.0) % MCV 99.7 (80-100) fl MCH 33.7 (26-34) pg MCHC 33.8 (32-36) g/dl RDW 13.7 (11.5-14.5) % Plt Count 348 (150-375) k/mm3 MPV 8.5 (7.4-10.4) fl Immature Gran % (Auto) 0.4 (0-0.5) % Neut % (Auto) 81.2 H (45.5-73.1) % Lymph % (Auto) 11.9 L (18.3-44.2) % Griggs % (Auto) 5.8 (2.6-8.5) % Eos % (Auto) 0.2 (0-4.4) % Baso % (Auto) 0.5 (0.2-1.2) % Lymph # (Auto) 1.54 (0.9-3.2) K/mm3 Griggs # (Auto) 0.8 H (0.1-0.6) K/mm3 Eos # (Auto) 0.0 (0-0.3) K/mm3 Baso # (Auto) 0.1 (0.0-0.1) K/mm3 Abs Immat Gran (auto) 0.05 H (0.00-0.031) K/mm3 Absolute Neuts (auto) 10.5 H (1.3-6.7) K/mm3 Absolute Nucleated RBC 0.000 (0.0-0.012) K/mm3 Nucleated RBC % 0.0 (0.0-0.2) % Methemoglobin 0.3 (0-1.5) %THb Sodium 133 L (137-145) mmol/L Potassium 3.9 (3.4-5.0) mmol/L Chloride 99 (98-107) mmol/L Carbon Dioxide 28 (22-30) mmol/L Anion Gap 6 (4-12) mmol/L BUN 11 (9-20) mg/dL Creatinine 0.67 L (0.7-1.3) mg/dL Estim Creat Clear Calc 95 ml/min Estimated GFR > 60 (59 - ) Glucose 107 (65-110) mg/dL Calcium 8.7 (8.4-10.2) mg/dL Total Bilirubin 0.4 (0.2-1.3) mg/dL AST 18 (17-59) U/L ALT 13 (6-50) U/L Alkaline Phosphatase 66 (38-126) U/L Total Protein 7.0 (6.3-8.2) g/dL Albumin 3.8 (3.5-5.1) g/dL Influenza A (RT-PCR) Negative (Negative) Influenza B (RT-PCR) Negative (Negative) RSV (RT-PCR) Negative (Negative) SARS-CoV-2 RNA (RT-PCR) Negative (Negative) ABG Data ABG results: 08/07/24 08:23 Puncture Site Left radial ABG pH 7.425 ABG pCO2 40.0 ABG pO2 63.6 L ABG PO2/FiO2 Ratio 1.99 ABG HCO3 25.7 ABG O2 Saturation 92.8 L ABG O2 Content 14.9 L ABG Base Excess 1.2 A-a Gradient 117.8 Oxyhemoglobin 86.9 L* Carboxyhemoglobin 6.2 H Reduced Hemoglobin 6.6 H Total Hemoglobin 12.2 O2 Delivery Device Nasal cannula O2 Liters/Min 3.0 FiO2 32 Imaging Data Radiologist's impression: Impressions Chest X-Ray 08/07/24 08:54 Impression: Normal chest. Discharge Plan Discharge Clinical Impression: COPD (chronic obstructive pulmonary disease), Pneumonia, Hypoxia Patient Disposition: Still a Patient Condition: Stable
[2024-08-07 08:32] LABS: Device NASAL CANNULA; Modified Allen's Test Pass; Site Drawn LEFT RADIAL
--- NOTE | 2024-08-07 08:34 | PCRCNOTE ---
ARRIVED TO GIVE NEBULIZER TREATMENT AND PT. WAS GONE TO IMAGING.
--- OUTSIDE RECORDS SUMMARY | 2024-08-07 08:37 | XMS_ITS | Encounter Summary ---
Author Organization [facility] Address [address] [place] [address]. [place] [address] [place] [address] Care Team Providers Care Pharmacy Clerk Name Role Phone Addison Remy MD Primary Care Provider [phone] Marcus Hobbs MD Unavailable Unavailabl e Damion Parra MD Unavailable [phone] Encounter Details Date Type Department Care Team (Late st Contact Info) Description 12/19/2018 Prep for Procedure [facility] - [address], [address] [place] [id number] Marcus Hobbs MD Social History Tobacco Use Types Packs/Day Years Used Date Smoking Tobacco: Every Day Cigarettes 1 40 Smokeless Tobacco: Never Alcohol Use Standard Drinks/Week Comments No 0 (1 standard drink = 0.6 oz pur e alcohol) Sex and Gender Information Value Date Recorded Sex Assigned at Not on file Legal Sex Male 6:19 PM CDT Gender Identity Not on file Sexual Orientation Straight 12/12/2018 8: 23 PM CDT documented as of this encounter Functional Status * Question Answer Date of Assessment Author Status Do you have serious difficulty walking or climbing stairs? Yes 12/20/2018 8:09 PM CDT Teresa Veloz RN Ac tive * Question Answer Date of Assessment Author Status Do you have difficulty dressing or bathing? Yes 12/20/2018 8:09 PM CDT Teresa Veloz R N Active Because of a physical, mental, or emotional condition, do you have difficulty doing errands alone such as visiting a doctor's office or shopping? Yes 12/20/2018 8:09 PM CDT Teresa Veloz RN Act sonia * RETIRED Are you deaf or do you have serious difficulty hearing Answer Date of Assessment Author Status No 12/12/2018 8:25 PM CDT Activ e * RETIRED Are you blind or do you have serious difficulty seeing, even when wearing glasses? Answer Date of Assessment Author Status No 12/12/2018 8:25 PM CDT Activ e * Do you have serious difficulty walking or climbing stairs? Answer Date of Assessment Author Status Yes 12/12/2018 8:25 PM CDT Delicia Estrada RN Active * Do you have difficulty dressing or bathing? Answer Date of Assessment Author Status No 12/12/2018 8:25 PM ANGELINAT Delicia Estrada RN Active * Because of a physical, mental, or emotional condition, do you have difficulty doing errands alone such as visiting a doctor's office or shopping? Answer Date of Assessment Author Status No 12/12/2018 8:25 PM CDT Delicia Estrada RN Active documented as of this encounter Mental Status * Question Answer Entry Date Author Status Because of a physical, mental, or emotional condition, do you have serious difficulty concentrating, remembering, or making decisions? No 12/20/2018 8:09 PM CDT Teresa Veloz R N Active * Because of a physical, mental, or emotional condition, do you have serious difficulty concentrating, remembering, or making decisions? Answer Entry Date Author Status No 12/12/2018 8:25 PM ANGELINAT Delicia Estrada RN Active documented in this encounter Plan of Treatment Not on file documented as of this encounter Visit Diagnoses Not on filedocumented in this encounter Care Teams Pharmacy Clerk Relationship Specialty Start Date End Date Addison Remy MD [address] [place], [place] [id number] PCP - General INTERNAL MEDICINE 11/30/18 Marcus Hobbs MD [address] [place] [address] Surgeon NEUROLOGICAL SURGERY 12/06/18 Damion Parra MD [address] [place] [address] [place] Blaster Helper INTERVENTIONAL CARDIOLOGY 01/24/19 documented as of this encounter
--- OUTSIDE RECORDS SUMMARY | 2024-08-07 08:37 | XMS_ITS | Patient Health Summary ---
Author Organization [facility] Address [address] [place] [address] Care Team Providers Care Track Repair Person Name Role Phone Addison Remy MD Primary Care Provider [phone] Note from [facility],non-owned Affiliates and Associated Physician Practices is amultiple site organization consisting of ambulatory clinics and hospital sitesin [place], [place], [place] and [place]. This disclosure is being madepursuant to the Care Everywhere program and may not contain all information available regarding this patient. Last updated 18.[facility] Allergies * Codeine(Other) -Medium Criticality Medications * Be aware that medications may not be up to date on this document. Alwaysverify current medications with the patient. * acetaminophen (TYLENOL) 325 MG tablet(Started 12/27/2018) Take 325 mg by mouth once daily * albuterol HFA (PROVENTIL;VENTOLIN;PROAIR) 108 (90 Base) MCG/ACT inhaler (Started 01/12/2019) Inhale 2 puffs by mouth every 6 hours as needed * amLODIPine (NORVASC) 10 MG tablet(Started 12/28/2018) Take 10 mg by mouth once daily * amLODIPine (NORVASC) 10 MG tablet(Started 07/31/2019) * atorvastatin (LIPITOR) 10 MG tablet(Started 12/28/2018) Take 10 mg by mouth once daily * HYDROcodone-acetaminophen (NORCO) 5-325 MG tablet(Started 04/18/2019) Take 1 tablet by mouth every 8 hours as needed * oxybutynin (DITROPAN) 5 MG tablet(Started 12/28/2018) Take 5 mg by mouth once daily * sildenafil (VIAGRA) 50 MG tablet(Started 04/06/2019) TAKE 1 TABLET BY MOUTH ONCE DAILY NEEDED APPROXIMATELY 1 HOUR BEFORE SEXUAL ACTIVITY * traMADol (ULTRAM) 50 MG tablet(Started 04/09/2019) Take 50 mg by mouth * atorvastatin (LIPITOR) 20 MG tablet(Started 03/30/2021) Take 20 mg by mouth once daily * D3-50 1.25 MG (24081 UT)(Started 04/08/2020) Take 1 capsule by mouth every 7 days * SYMBICORT 160-4.5 MCG/ACT inhaler(Started 10/06/2020) INHALE 2 PUFFS BY MOUTH EVERY 12 HOURS * gabapentin (NEURONTIN) 300 MG capsule(Started 04/06/2021) Take 300 mg by mouth 3 times daily * escitalopram (LEXAPRO) 20 MG tablet(Started 03/31/2021) TAKE 1 TABLET BY MOUTH ONCE DAILY TAKE WITH 10 MG FOR A TOTAL DOSE OF 30 MG * ANORO ELLIPTA 62.5-25 MCG/INH inhaler(Started 03/20/2021) INHALE 1 PUFF BY MOUTH EVERY 24 HOURS Social History Tobacco Use Types Packs/Day Years Used Date Smoking Tobacco: Every Day Smokeless Tobacco: Never Alcohol Use Standard Drinks/Week Comments Not Currently 0 (1 standard drink = 0.6 oz pur e alcohol) Sex and Gender Information Value Date Recorded Sex Assigned at Not on file Gender Identity Not on file Sexual Orientation Not on file Last Filed Vital Signs Vital Sign Reading Time Taken Comments Blood Pressure 119/82 04/13/2021 11:41 AM CDT Pulse 73 04/13/2021 11:41 AM CDT Temperature 36.3 ??C (97.3 ??F) 02/25/2020 10:45 AM C DT Respiratory Rate - - Oxygen Saturation 100% 04/13/2021 11:41 AM CDT Inhaled Oxygen Concentration - - Weight 93.9 kg (207 lb) 04/13/2021 11:41 AM CDT Height 170.2 cm (5' 7) 04/13/2021 11:41 AM CDT Body Mass Index 32.42 04/13/2021 11:41 AM CDT Care Teams Track Repair Person Relationship Specialty Start Date End Date Addison Remy MD [address] [place] [address] [facility] - General 08/29/19
--- OUTSIDE RECORDS SUMMARY | 2024-08-07 08:37 | XMS_ITS | Clinical Summary ---
Author Organization [facility] Address [address] [place] [address]. [place] [address] [place] [address] Care Team Providers Care Beater Engineer Helper Name Role Phone Addison Remy MD Primary Care Provider [phone] Marcus Hobbs MD Unavailable Unavailabl e Damion Parra MD Unavailable [phone] Allergies Active Allergy Reactions Criticality Noted Date Comments Codeine Other (see comment) Medium 06/21/2017 insomnia Medications atorvastatin 10 MG tabletIndications :Lumbar radiculopathy [The details of the medication are not available because there are pending changes by a home health clinician.] 30 tablet 12/29/19 Active Additional Information Patient taking differently:10 mg OralNightly at bedtime, Indications: Changes in Cholesterol (Inactive), Reported on 12/28/2018 amlodipine 10 MG tabletIndications :Lumbar radiculopathy [The details of the medication are not available because there are pending changes by a home health clinician.] 30 tablet 12/29/19 19 Active Additional Information Patient taking differently:10 mg Oral Daily,Indications: Irregular Blood Pressure, Reported on 12/28/2018 gabapentin 100 MG capsule TAKE 2 CAPSULES BY MOUTH THREE TIMES DAILY 5 01/05/20 19 Active tizanidine 4 MG tablet TAKE 1 TABLET BY MOUTH EVERY 8 HOURS NEEDED DO NOT TAKE MORE THAN 3 DOSES PER 24 HOURS 0 01/04/20 Active escitalopram 20 MG tablet Take 20 mg by mouth daily. 3 01/04/20 19 Active albuterol sulfate HFA 108 (90 Base) MCG/ACT inhaler Inhale 2 puffs into the lungs every 6 (six) hours as needed for Wheezing. 01/13/20 19 Active FEROSUL 325 (65 Fe) MG tablet Take 1 tablet by mouth daily. 0 02/27/20 19 Active varenicline (CHANTIX STARTING MONTH ) 0.5 MG X 11 & 1 MG X 42 tabletIndications :Cigarette nicotine dependence with nicotine-induced disorder 1 tab 0.5 mg tablet by mouth once a day x3 days, increase to one 0.5 mg tab twice/day for 4 days, increase to one 1 mg tab twice a day. 42 tablet 03/09/20 Active hydrocodone-aceta minophen 5-325 MG tablet Take 1 tablet by mouth every 8 (eight) hours as needed. 0 04/18/20 19 Active sildenafil 50 MG tablet TAKE 1 TABLET BY MOUTH ONCE DAILY NEEDED APPROXIMATELY 1 HOUR BEFORE SEXUAL ACTIVITY 0 04/06/20 19 Active Active Problems Problem Noted Date Diagnosed Date Deep vein thrombosis (DVT) o f lower extremity (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) 11/10/2018 Lumbar facet joint pain 11/10/2018 Spinal stenosis of cervical region 11/10/2018 Foraminal stenosis of cervical region 11/10/2018 Facet arthropathy, cervical 11/10/2018 Degenerative disc disease, cervical 11/10/2018 Cervical disc herniation 11/10/2018 Chronic low back pain, unspe cified back pain laterality, with sciatica presence unspecified 09/21/2018 Foraminal stenosis of lumbar region 09/21/2018 Radiculopathy, lumbar region 09/21/2018 Other intervertebral disc degeneration, lumbar r egion 09/21/2018 Other intervertebral disc displacement, lumbar r egion 09/21/2018 Spinal stenosis of lumbar re gion without neurogenic claudication 09/21/2018 Neck pain, chronic 09/21/2018 Sacroiliitis 08/23/2018 Myofascial pain 07/07/2018 Lumbar facet arthropathy 11/15/2017 Cervical radiculopathy 07/20/2017 Lumbar radiculopathy 06/21/2017 Family History Medical History Relation Comments Cancer Maternal Grandfather Cancer Maternal Uncle Relation Status Comments Father Alive Maternal Grandfather Maternal Uncle Mother Alive Social History Tobacco Use Types Packs/Day Years Used Date Smoking Tobacco: Every Day Cigarettes 1 40 Smokeless Tobacco: Never Tobacco Cessation:Ready to Q uit: No; Counseling Given: Yes Comments:STATES HE IS DOWN TO A HALF PACK CURRENTLY (12/20/18) Alcohol Use Standard Drinks/Week Comments No 0 (1 standard drink = 0.6 oz pur e alcohol) Sex and Gender Information Value Date Recorded Sex Assigned at Not on file Legal Sex Male 6:19 PM CDT Gender Identity Not on file Sexual Orientation Straight 12/12/2018 8: 23 PM CDT Occupation Industry Job Start Date Job End Date Not on file Not on file Not on file Not on file Last Filed Vital Signs Vital Sign Reading Time Taken Comments Blood Pressure 126/78 02/28/2020 11:14 AM CDT Pulse 72 02/28/2020 11:14 AM CDT Temperature 36.7 ??C (98.1 ??F) 03/09/2019 9:07 AM CD T Respiratory Rate 15 01/17/2019 11:45 AM CDT Oxygen Saturation 96% 02/28/2020 11:14 AM CDT Inhaled Oxygen Concentration - - Weight 101.6 kg (224 lb) 02/28/2020 11:14 AM CDT Height 170.2 cm (5' 7) 02/28/2020 11:14 AM CDT Body Mass Index 35.08 02/28/2020 11:14 AM CDT Plan of Treatment Health Maintenance Due Date Last Done Comments Colorectal Cancer Screening Colonoscopy (10 Years) 1964 Annual Physical 11/08/1967 Pneumococcal Vaccine: Pediat rics (0 to 5 Years) and At-Risk Patients (6 to 64 Years) (1 of 2 - PCV) 1970 Hepatitis C 1982 DTaP, Tdap and Td Vaccines ( 1 - Tdap) 11/08/1983 Zoster Vaccines (1 of 2) 2014 COVID-19 Vaccine (1 - 2023-2 5 season) 2024 Influenza Adult (#1) 2024 Meningococcal B Vaccine Aged Out No l onger eligible based on patient's age to complete this topic Meningococcal Vaccine Aged Out No mio dc eligible based on patient's age to complete this topic RSV Immunizations Under 20 Months Aged Out No longer eligible based on patient's age to complete this topic Medical Devices Implanted Type Area Mold Inspector Device Identifier Shelf Expiration Date Model / Serial / Lot Duramatrix Onlay Plus 3x3 - [id number] Implanted:Qty : 1 on 12/12/2018 by Marcus Hobbs MD at [facility] N/A: Thoracic [employer] 10/09/2019 [id number] / [id number] Insurance [facility]ID [facility] [address] Advance Directives * Full Code (Latest Code Status on File) Date Activated Date Inactivated Comments 12/20/2018 6:57 PM 12/27/2018 2:38 PM * Full Code Date Activated Date Inactivated Comments 12/12/2018 8:17 PM 12/20/2018 6:41 PM Care Teams Beater Engineer Helper Relationship Specialty Start Date End Date Addison Remy MD [address] [place] [address] PCP - General INTERNAL MEDICINE 11/30/18 Marcus Hobbs MD [address] [place] [address] Surgeon NEUROLOGICAL SURGERY 12/06/18 Damion Parra MD [address] [place] [address] Lowell Glass Vial Filler INTERVENTIONAL CARDIOLOGY 01/24/19
--- OUTSIDE RECORDS SUMMARY | 2024-08-07 08:37 | XMS_ITS | Referral Summary ---
Author Organization [facility] Address [address] [place] [address] Care Team Providers Care Pneumatic Tube Fitter Name Role Phone Addison Remy MD Primary Care Provider Source Comments [facility],non-owned Affiliates and Associated Physician Practices is amultiple site organization consisting of ambulatory clinics and hospital sitesin [place], [place], [place] and [place]. This disclosure is being madepursuant to the Care Everywhere program and may not contain all information available regarding this patient. Last updated 18.[facility] [place] Allergies Active Allergy Reactions Criticality Noted Date Comments Codeine Other Medium 06/21/2017 insomnia Medications * Be aware that medications may not be up to date on this document. Alwaysverify current medications with the patient. Medication Sig Dispensed Refills Start Date End Date Status acetaminophen (TYLENOL) 325 MG tablet Take 325 mg by mouth once daily 12/27/2018 Active albuterol HFA (PROVENTIL;VENTOLIN ;PROAIR) 108 (90 Base) MCG/ACT inhaler Inhale 2 puffs by mouth every 6 hours as needed 01/12/2019 Active amLODIPine (NORVASC) 10 MG tablet Take 10 mg by mouth once daily 12/28/2018 Active amLODIPine (NORVASC) 10 MG tablet 07/31/2019 Active atorvastatin (LIPITOR) 10 MG tablet Take 10 mg by mouth once daily 12/28/2018 Active HYDROcodone-acetami nophen (NORCO) 5-325 MG tablet Take 1 tablet by mouth every 8 hours as needed 04/18/2019 Active oxybutynin (DITROPAN) 5 MG tablet Take 5 mg by mouth once daily 12/28/2018 Active sildenafil (VIAGRA) 50 MG tablet TAKE 1 TABLET BY MOUTH ONCE DAILY NEEDED APPROXIMATELY 1 HOUR BEFORE SEXUAL ACTIVITY 04/06/2019 Active traMADol (ULTRAM) 50 MG tablet Take 50 mg by mouth 04/09/2019 Act sonia atorvastatin (LIPITOR) 20 MG tablet Take 20 mg by mouth once daily 03/30/2021 Active D3-50 1.25 MG (85021 UT) Take 1 capsule by mouth every 7 days 04/08/2020 Active SYMBICORT 160-4.5 MCG/ACT inhaler INHALE 2 PUFFS BY MOUTH EVERY 12 HOURS 10/06/2020 Active gabapentin (NEURONTIN) 300 MG capsule Take 300 mg by mouth 3 times daily 04/06/2021 Active escitalopram (LEXAPRO) 20 MG tablet TAKE 1 TABLET BY MOUTH ONCE DAILY TAKE WITH 10 MG FOR A TOTAL DOSE OF 30 MG 03/31/2021 Active ANORO ELLIPTA 62.5-25 MCG/INH inhaler INHALE 1 PUFF BY MOUTH EVERY 24 HOURS 03/20/2021 Active Social History Tobacco Use Types Packs/Day Years [...] Mass Index 32.42 04/13/2021 11:41 AM CDT Plan of Treatment Not on file Care Teams Pneumatic Tube Fitter Relationship Specialty Start Date End Date Addison Remy MD [address] [place] [address] PCP - General 08/29/19
--- OUTSIDE RECORDS SUMMARY | 2024-08-07 08:37 | XMS_ITS | Encounter Summary ---
Author Organization [facility] Address [address] [place] [address]. [place] [address] [place] [address] Care Team Providers Care Office Machinery Or Equipment Installer Name Role Phone Addison Remy MD Primary Care Provider [phone] Marcus Hobbs MD Unavailable Unavailabl e Damion Parra MD Unavailable [phone] Encounter Details Date Type Department Care Team (Late st Contact Info) Description 03/30/2021 [facility] [address] [address] Nini Rushing MA Social History Tobacco Use Types Packs/Day Years Used Date Smoking Tobacco: Every Day Cigarettes 1 40 Smokeless Tobacco: Never Comments:STATES HE IS DOWN T O A HALF PACK CURRENTLY (12/20/18) Alcohol Use [...] file Not on file Not on file documented as of this encounter Functional Status * RETIRED Are you deaf or do you have serious difficulty hearing Answer Date of Assessment Author Status No 12/20/2018 8:09 PM CDT Activ e * RETIRED Are you blind or do you have serious difficulty seeing, even when wearing glasses? Answer Date of Assessment Author Status No 12/20/2018 8:09 PM CDT Activ e * Do you have serious difficulty walking or climbing stairs? Answer Date of Assessment Author Status Yes 12/20/2018 8:09 PM CDT Teresa Veloz RN Active * Do you have difficulty dressing or bathing? Answer Date of Assessment Author Status Yes 12/20/2018 8:09 PM ANGELINAT Teresa Veloz RN Active * Because of a physical, mental, or emotional condition, do you have difficulty doing errands alone such as visiting a doctor's office or shopping? Answer Date of Assessment Author Status Yes 12/20/2018 8:09 PM Teresa Willoughby RN Active documented as of this encounter Mental Status * Because of a physical, mental, or emotional condition, do you have serious difficulty concentrating, remembering, or making decisions? Answer Entry Date Author Status No 12/20/2018 8:09 PM Teresa Willoughby RN Active documented in this encounter Plan of Treatment Not on file documented as of this encounter Procedures Procedure Name Priority Date/Time Associated Diagnosis Comments CBC (OUTSIDE LAB) Routine 04/07/2020 COMPREHENSIVE METABOLIC PANEL Routine 04/07/2020 LIPID PANEL Routine 04/07/2020 THYROID STIM HORMONE TSH Routine 04/07/2020 documented in this encounter Results * THYROID STIM HORMONE, TSH (04/07/2020) TSH 0.993 04/07/2020 [facility] Abstract LABORATORY Final Result * LIPID PANEL (04/07/2020) CHOLESTEROL 160 HDL 46 TRIGLYCERIDES 120 LDL (CALCULATED) 83 04/07/2020 [facility] Abstract LABORATORY Final Result * COMPREHENSIVE METABOLIC PANEL (04/07/2020) SODIUM S/P/B 139 POTASSIUM S/P/B 4.1 CO2 29 CHLORIDE S/P/B 102 GLUCOSE 103 mg/dL CALCIUM S/P/B 9.6 BUN 11 CREATININE S/P/B 0.80 0.7 - 1.3 EGFR NON-AFR. AMER. >60 <=90 ALKALINE PHOSPHATASE S/P/B 65 ALT 14 AST 19 BILIRUBIN TOTAL S/P/B 0.5 ALBUMIN S/P/B 4.4 3.5 - 5.0 TOTAL PROTEIN S/P/B 7.0 04/07/2020 [facility] Abstract LABORATORY Final Result * CBC (OUTSIDE LAB) (04/07/2020) WBC 7.4 HGB 14.1 HCT 41.1 PLT 294 04/07/2020 [facility] Abstract LAB-OUTSIDE/ABSTRACTED Final Result documented in this encounter Visit Diagnoses Not on filedocumented in this encounter Care Teams Office Machinery Or Equipment Installer Relationship Specialty Start Date End Date Addison Remy MD [address] [place] [address] PCP - General INTERNAL MEDICINE 11/30/18 Marcus Hobbs MD [address] [place] [address] Surgeon NEUROLOGICAL SURGERY 12/06/18 Damion Parra MD [address] [place] [address] [place] Mechanical Integrity Engineer INTERVENTIONAL CARDIOLOGY 01/24/19 documented as of this encounter
--- OUTSIDE RECORDS SUMMARY | 2024-08-07 08:37 | XMS_ITS | Clinical Summary ---
Author Organization [facility] Address [address] [place] [address] Care Team Providers Care Escalator Installer Name Role Phone Addison Remy MD Primary Care Provider [phone] Source Comments [facility],non-owned Affiliates and Associated Physician Practices is amultiple site organization consisting of ambulatory clinics and hospital sitesin [place], [place], [place] and [place]. This disclosure is being madepursuant to the Care Everywhere program and may not contain all information available regarding this patient. Last updated 18.[facility] Allergies Active Allergy Reactions Criticality Noted Date [...] once daily 03/30/2021 Active D3-50 1.25 MG (39294 UT) Take 1 capsule by mouth every [...] 04/13/2021 11:41 AM CDT Plan of Treatment Health Maintenance Due Date Last Done Comments COLOGUARD (AGES 45-75) - COL ON CA SCREENING 1965 COLON MONITORING 1965 COLONOSCOPY - COLON CA SCREENING 1965 CT COLONOGRAPHY - COLON CA SCREENING 1965 Colorectal Cancer Screening 1965 FIT - COLON CA SCREENING 1965 FLEX SIG - COLON CA SCREENING 1965 HIV SCREENING 11/08/1979 HEPATITIS C SCREENING 11/03/1982 DTAP/TDAP/TD VACCINES (1 - Tdap) 11/08/1983 HEPATITIS B VACCINE (1 of 3 - 19+ 3-dose series) 11/08/1983 PNEUMOCOCCAL VACCINE 50+ (1 of 2 - PCV) 11/08/1983 PNEUMOCOCCAL VACCINE (1 of 2 - PCV) 11/08/1983 ZOSTER VACCINE (1 of 2) 2014 SCREENING FOR DIABETES 04/13/2021 COVID-19 VACCINE (1 - 2023-2 5 season) 2024 INFLUENZA VACCINE (#1) 2024 DEPRESSION SCREENING 07/11/2024 MEDICARE AWV ? CALENDAR YEAR 2024 HIB VACCINE Aged Out No longer eligi ble based on patient's age to complete this topic HPV VACCINE Aged Out No longer eligi ble based on patient's age to complete this topic MENINGOCOCCAL (Group B) VACCINE Aged Out No longer eligible based on patient's age to complete this topic MENINGOCOCCAL VACCINE Aged Out No mio dc eligible based on patient's age to complete this topic Care Teams Escalator Installer Relationship Specialty Start Date End Date Addison Remy MD [address] [place] [address] PCP - General 08/29/19
[2024-08-07 08:45] LABS: Alanine Aminotransferase 13 U/L (6-50); Albumin Level 3.8 g/dL (3.5-5.1); Alkaline Phosphatase 66 U/L (38-126); Anion Gap 6 mmol/L (4-12); Aspartate Amino Transferase 18 U/L (17-59); Bilirubin,Total 0.4 mg/dL (0.2-1.3); Blood Urea Nitrogen 11 mg/dL (9-20); Calcium 8.7 mg/dL (8.4-10.2); Carbon Dioxide 28 mmol/L (22-30); Chloride 99 mmol/L (98-107); Estimated CRCL calculation 95 ml/min; Estimated Glomerular Filt Rate > 60; Glucose 107 mg/dL (65-110); Potassium 3.9 mmol/L (3.4-5.0); Sodium 133 mmol/L (137-145)
[2024-08-07] MEDS: ALBUTEROL SULFATE NEB 2.5 MG/3 ML INH 5 MG INHALATION (08:51)
[2024-08-07 09:10] LABS: Influenza A QL RT-PCR Negative (Negative); Influenza B QL RT-PCR Negative (Negative); RSV RNA, RT-PCR Negative (Negative); SARS-CoV-2 RNA PCR Negative (Negative)
[2024-08-07] MEDS: levoFLOXacin 750 MG/D5W 150 ML 750 MG/150 ML BAG 100 MG IVPB (10:02)
[2024-08-07] MEDS: methylPREDNISolone SOD SUCC 125 MG VIAL IV PUSH (10:03)
--- NOTE | 2024-08-07 11:28 | PC.NURSE ---
Ordered pt a lunch tray
[2024-08-07] MEDS: methylPREDNISolone SOD SUCC 125 MG VIAL 60 MG IV PUSH ×2 (12:40→17:10)
[2024-08-07] MEDS: ALBUTEROL SULFATE NEB 2.5 MG/3 ML INH INHALATION ×2 (13:18→20:02)
--- NOTE | 2024-08-07 14:30 | ADMGEN ---
This patient, Denny Proctor, was admitted to [facility] Surg Room 314-02. Patient/family oriented to hospital policies and general routines including ID bracelet, bed and alarms, visiting hours, pain management, procedures, bathroom and other care routines, personal items, smoking policy, room service/diet, and visiting hours. Information on how to activate the Rapid Response Team has been discussed. Patient/Family are encouraged to report perceived risks to care and to ask questions if they do not understand what they are told or what they should do.
--- NOTE | 2024-08-07 15:20 | PM.IMHP ---
H&P: HPI History of Present Illness Date/Time: 08/07/24 15:20 Chief Complaint: Shortness of breath Narrative: This is a 58-year-old male with history of COPD and current smoker presents to the emergency department for evaluation for worsening shortness of breath. Patient is not on oxygen at home. Patient states that he was having some shortness of breath yesterday did have a very active day but then had worsening symptoms overnight. He reports his oxygen was low. Due to his symptoms patient did call EMS and was found to be saturating approximately 60% on room air. Patient does feel improved on oxygen by nasal cannula. He denied any chest pain. No leg swelling. He has been active wheezy. he has been using his inhalers. Review of Systems Review of Systems: - CONSTITUTIONAL: Denies weight loss, fever and chills. - HEENT: Denies changes in vision and hearing - RESPIRATORY: Reports SOB and cough. - CV: Denies palpitations and CP. - GI: Denies abdominal pain, nausea, vomiting and diarrhea. - : Denies dysuria and urinary frequency. - MSK: Denies myalgia and joint pain. - SKIN: Denies rash and pruritus. - NEUROLOGICAL: Denies headache and syncope. - PSYCHIATRIC: Denies recent changes in mood. Denies anxiety and depression. [facility] Past Medical History Medical History Cervical radiculopathy due to degenerative joint disease of spine Lumbar degenerative disc disease Neuropathy Anemia Anxiety Chronic obstructive pulmonary disease Erectile dysfunction Essential hypertension Mixed hyperlipidemia Pulmonary embolism without acute cor pulmonale Tobacco abuse Surgical History Surgical History History of carpal tunnel surgery H/O hernia repair History of laminectomy Family History Family History (Updated 08/07/24 @ 14:34 by Jen Rodriguez RN) Father Carcinoma of colon Brain cancer Liver cancer Mother Heart disease Melanoma Hypertension Depression Unknown No problems noted. Social History Social History Social History: Patient currently lives with his mother and is on disability. Patient states that he does not have any pets and that his mother would be his surrogate if he was unable to make his own decisions. Patient wishes to be a full code at this time Smoking packs per day: 1 Smoking cigarettes per day: 20.0 Years smoked: 46 Smoking pack-years: 46.00 Smoking status: Current every day smoker Second hand tobacco smoke exposure: Yes Alcohol intake: former Substance use: never Substance use type: does not use Do You Feel Safe in your Home?: Yes Lack of Transportation: No Lack of Food: Never True Current Housing: I Have Housing Concerned About Future Housing: No Difficulty Paying Gas/Electric Bills: YES Difficulty Paying for Meds: No Currently Unemployed: No Education: Grade School Difficulty w/ Childcare or Family Care: No Living arrangements: with family Occupation/Education: other Additional occupation/education comments: Disability Gender identity (if verbalized by the patient): Male Sexual Orientation (if Verbalized by the Patient): Straight or Heterosexual Spiritual care concerns: No Agree to blood products: Yes Meds Home Medications and Allergies Home Medications ?Medication ?Instructions ?Recorded ?Confirmed ?Type sildenafil 50 mg tablet (Viagra) 100 mg PO DAILY PRN Sexual Activity 05/28/19 08/07/24 History hydrocodone 7.5 mg-acetaminophen 1 tablet PO Q12H PRN Back Pain 12/11/21 08/07/24 History 325 mg tablet esomeprazole magnesium 20 mg 20 mg PO DAILY 10/21/22 08/07/24 History tablet,delayed release (Nexium 24HR) Stiolto Respimat 2.5 mcg-2.5 2 puff inhalation Q24H #4 grams 12/26/23 08/07/24 Rx mcg/actuation solution for inhalation (tiotropium-olodaterol) oxybutynin chloride 5 mg tablet 5 mg PO DAILY #90 tabs 02/22/24 08/07/24 Rx sertraline 100 mg tablet 100 mg PO DAILY #90 tabs 02/22/24 08/07/24 Rx gabapentin 300 mg capsule 300 mg PO TID 90 days #270 caps 03/20/24 08/07/24 Rx azithromycin 250 mg tablet See Rx Instructions PO .COMPLEX #6 07/23/24 08/07/24 Rx tabs amlodipine 10 mg tablet 10 mg PO DAILY #90 tabs 07/25/24 08/07/24 Rx ondansetron 4 mg disintegrating See Rx Instructions .Route 08/01/24 08/07/24 Rx tablet .COMPLEX #40 tabs Allergies Allergy/AdvReac Type Severity Reaction Status Date / Time cefadroxil Allergy Mild Hives Verified 08/07/24 11:20 codeine Allergy Mild Irritable Verified 08/07/24 11:20 Vital Signs Vital Signs - 24 hr 08/07/24 07:58 08/07/24 08:02 08/07/24 08:04 Temperature 97.8 F Pulse Rate 92 91 Respiratory Rate 22 H Blood Pressure 103/70 Pulse Oximetry 84 L 91 Oxygen Delivery Room Air Nasal Cannula Oxygen Flow Rate 3 08/07/24 08:04 08/07/24 08:51 08/07/24 09:12 Temperature Pulse Rate 78 93 Respiratory Rate 28 H 20 Blood Pressure Pulse Oximetry 94 Oxygen Delivery Nasal Cannula Oxygen Flow Rate 3 08/07/24 10:04 08/07/24 11:17 08/07/24 13:16 Temperature Pulse Rate 84 77 75 Respiratory Rate 26 H 22 H 20 Blood Pressure 102/66 103/61 112/65 Pulse Oximetry 92 94 95 Oxygen Delivery Oxygen Flow Rate 08/07/24 13:20 08/07/24 13:29 08/07/24 14:39 Temperature Pulse Rate 72 86 Respiratory Rate 27 H 23 H Blood Pressure Pulse Oximetry 95 Oxygen Delivery Nasal Cannula Oxygen Flow Rate 3 Exam Narrative: APPEARANCE: Well appearing, no pain, no distress, well-nourished. HEAD: normocephalic, atraumatic. EYES: PERRLA/EOMI, conjunctivae clear. NOSE: Normal no drainage NECK: Supple. No adenopathy, no masses. RESPIRATORY: Airway patent, respirations nonlabored. Diffusely wheezy CARDIOVASCULAR: Decreased breath sounds bilaterally ABDOMINAL: Soft, nontender, nondistended, normal bowel sounds MUSCULOSKELETAL: Moves all extremities. Strength/ROM intact, No edema, No calf tenderness. NEURO: Alert. Cranial nerves II through XII intact. Good gait. Good coordination SKIN: Warm, dry. Normal Color H&P: Results Labs Labs: Short CBC 08/07/24 Range/Units 08:13 WBC 12.9 H (4.5-10.0) K/mm3 Hgb 11.9 L (14.0-18.0) g/dL Hct 35.2 L (42.0-52.0) % Plt Count 348 (150-375) k/mm3 [facility] 08/07/24 08:13 Sodium 133 L Potassium 3.9 Chloride 99 Carbon Dioxide 28 BUN 11 Creatinine 0.67 L Glucose 107 Calcium 8.7 Liver Function 08/07/24 Range/Units 08:13 Total Bilirubin 0.4 (0.2-1.3) mg/dL AST 18 (17-59) U/L ALT 13 (6-50) U/L Alkaline Phosphatase 66 (38-126) U/L Albumin 3.8 (3.5-5.1) g/dL Assessment and Plan Assessment and plan (1) COPD exacerbation: Code(s): J44.1 - Chronic obstructive pulmonary disease with (acute) exacerbation Status: Acute (2) Acute hypoxic respiratory failure: Code(s): J96.01 - Acute respiratory failure with hypoxia Status: Acute Plan This is a 58-year-old male with history of COPD and current smoker presents to the emergency department for evaluation for worsening shortness of breath. Patient is not on oxygen at home. Patient states that he was having some shortness of breath yesterday did have a very active day but then had worsening symptoms overnight. He reports his oxygen was low. Due to his symptoms patient did call EMS and was found to be saturating approximately 60% on room air. Patient does feel improved on oxygen by nasal cannula. He denied any chest pain. No leg swelling. He has been active wheezy. he has been using his inhalers. He continues to smoke. The air needing oxygen patient. Saturation 3 L. room treatment. Laboratory workup revealed WBC point. Influenza RSV COVID swab was negative. Chest x-ray showed no acute cardiopulmonary disease. Heme panels. ABG 7.42/40/63. Acute hypoxic respiratory failure needing oxygen supplementation COPD exacerbation levofloxacin steroid as ordered Lumbar degenerative disc disease Neuropathy Cervical radiculopathy Hypertension Hyperlipidemia History of PE currently not on anticoagulation DVT prophylaxis Lovenox Code status full code Hospitalist [facility] Advance Care Plan I have confirmed that the patient's Advanced Care Plan is present, code status is documented, or surrogate decision maker is listed in patient medical record.: Yes Medication Reconciliation I have utilized all available resources to obtain, update and review the patients current medications (includes all prescriptions, OTC, herbals, cannabis, and nutritional supplements).: Yes
[2024-08-07] MEDS: HYDROcodone/acetaminophen (*CRX) 7.5-325 MG TABLET 1 TAB PO (17:10)
[2024-08-07] MEDS: GABAPENTIN 300 MG CAPSULE PO (17:10)
[2024-08-08] VITALS (16 sets, daily range): BP systolic 118–131; BP diastolic 74–79; PULSE 63–88; RESP 16–22; TEMP 36.4–37; O2SAT 90–96
--- NOTE | 2024-08-08 | ECHO_ITS ---
Patient Info Name: Denny Proctor Age: 58 years : 1965 Gender: Male Ht: 67 in Wt: 187 lbs BSA: 2.03 m2 HR: 74 bpm BP: 131 / 77 mmHg Technical Quality: Fair Exam Date: 08/08/2024 2:17 PM Exam Location: Echo Lab Patient Status: Outpatient Admit Date: 08/07/2024 Staff Ordering Physician: Sam Gill MD Manager Plan: Trevon Fonseca RDCS Attending Provider: Didier Hill MD Exam Type: CA echo doppler w bubble study Study Info Indications - HYPOXIA Complete two-dimensional, color flow and Doppler transthoracic echocardiogram is performed with agitated saline. Contrast/Agitated Saline Contrast/Ag. Saline: Agitated Saline Amount: 20.00 ml Existing IV Access: Yes Summary 1. Left ventricular chamber dimension is normal. 2. Left ventricular systolic function is normal, estimated at 65-70%. 3. There is moderate concentric increased left ventricular wall thickness. 4. The left ventricular diastolic function is grade I diastolic dysfunction. 5. E/e' 8 is minimally elevated. Left Ventricle E/e' 8 is minimally elevated. Left ventricular chamber dimension is normal. Left ventricular systolic function is normal, estimated at 65-70%. There is moderate concentric increased left ventricular wall thickness. The left ventricular diastolic function is grade I diastolic dysfunction. Right Ventricle Right ventricular systolic function is normal and with normal TAPSE 3.3 cm. Right ventricular chamber dimension is normal. Left Atria Left atrial chamber dimension is normal. Right Atria Right atrial chamber dimension is normal. Atrial Septum Agitated saline injection opacified right side cardiac chambers without shunt to left side cardiac chambers. Intact interatrial septum visualized by 2D and agitated saline imaging. Aortic Valve The aortic valve is trileaflet. There is no aortic valve stenosis. There is no aortic valve regurgitation. Pulmonic Valve There is no pulmonic regurgitation. Mitral Valve There is no mitral valve stenosis. There is no mitral valve regurgitation. Tricuspid Valve There is no tricuspid valve regurgitation. Pericardium/Pleural There is no pericardial effusion. Inferior Vena Cava Normal inferior vena cava with >50% collapse upon inspiration consistent with normal right atrial pressure, 5 mmHg. Aorta The aortic root size at the sinus of Valsalva is normal. Left Ventricular Outflow Tract Name Value Normal LVOT 2D LVOT Diameter 2.0 cm LVOT Doppler LVOT Peak Gradient 9 mmHg LVOT Mean Gradient 5 mmHg LVOT VTI 29 cm LVOT VTI/AV VTI Ratio 1.0 LVOT Stroke Volume 87 ml LVOT CO 7.5 l/min LVOT CI 3.7 l/min/m2 Pulmonic Valve Name Value Normal RVOT Doppler RVOT Peak Gradient 3 mmHg PV Doppler PV Peak Gradient 7 mmHg Mitral Valve Name Value Normal MV Doppler MV Decel [facility] 506 cm/s2 MV PHT 53 ms MV Area (PHT) 4.1 cm2 4.0-5.0 MV Diastolic Function MV E Peak Velocity 93 cm/s MV A Peak Velocity 97 cm/s MV E/A 1.0 MV Decel Time 184 ms MV Annular TDI MV E/e' (Septal) 9.2 <=8.0 MV E/e' (Lateral) 8.6 <=8.0 MV E/e' (Average) 8.9 Tricuspid Valve Name Value Normal TV Regurgitation Doppler TR Peak Velocity 20 cm/s TR Peak Gradient 0 mmHg Estimated PAP/RSVP RA Pressure 5 mmHg <=5 PA Systolic Pressure 5 mmHg <36 RV Systolic Pressure 5 mmHg <36 Aorta Name Value Normal Ascending Aorta Ao Root Diameter (MM) 3.6 cm Ao Root Diam Index (MM) 1.8 cm/m2 Aortic Valve Name Value Normal AV Doppler AV Peak Velocity 163 cm/s AV Peak Gradient 11 mmHg AV Mean Gradient 5 mmHg AV VTI 30 cm AV Area (Cont Eq VTI) 3.0 cm2 >=3.0 AV Area (Cont Eq Aldo) 2.7 cm2 AV Regurgitation 2D LVOT Area 3.0 cm2 Ventricles Name Value Normal LV Dimensions 2D/MM IVS Diastolic Thickness (2D) 1.5 cm 0.6-1.0 LVID Diastole (2D) 2.7 cm 4.2-5.8 LVIW Diastolic Thickness (2D) 2.3 cm 0.6-1.0 LVID Systole (2D) 2.0 cm 2.5-4.0 LVOT Diameter 2.0 cm LV Mass (2D Cubed) 208.83 g 88.00-224.00 LV Mass Index (2D Cubed) 103 g/m2 49-115 Relative Wall Thickness (2D) 1.66 LV Fractional Shortening/Ejection Fraction 2D/MM LV Fractional Shortening (2D) 25 % 25-43 LV EF (2D Teicholz) 52 % 52-72 LV Diastolic Volume (4C MOD) 87 ml LV EF (4C MOD) 49 % LV Diastolic Volume (2C MOD) 77 ml LV EF (2C MOD) 61 % LV Diastolic Volume (BP MOD) 86 ml 62-150 LV Diastolic Volume Index (BP MOD) 42 ml/m2 34-74 LV Systolic Volume (BP MOD) 39 ml 21-61 LV Systolic Volume Index (BP MOD) 19 ml/m2 11-31 LV EF (BP MOD) 55 % 52-72 LV Diastolic Length (4C) 8.7 cm LV Systolic Length (4C) 7.2 cm LV Stroke Volume (4C MOD) 43 ml Atria Name Value Normal LA Dimensions LA Dimension (MM) 3.1 cm 3.0-4.1 LA Volume (4C A-L) 45 ml LA Volume (BP A-L) 52 ml RA Dimensions RA Area (4C) 14.7 cm2 <=18.0 Report Signatures
[2024-08-08] MEDS: methylPREDNISolone SOD SUCC 125 MG VIAL 60 MG IV PUSH ×5 (00:43→23:19)
[2024-08-08] MEDS: ALBUTEROL SULFATE NEB 2.5 MG/3 ML INH INHALATION ×4 (03:00→21:03)
[2024-08-08] MEDS: HYDROcodone/acetaminophen (*CRX) 7.5-325 MG TABLET 1 TAB PO (06:07)
[2024-08-08] MEDS: UMECLIDINIUM/VILANTEROL 62.5-25 MCG ELLIPTA 1 PUFF INHALATION (08:01)
[2024-08-08] MEDS: oxyBUTYnin CHLORIDE 5 MG TABLET PO (08:13)
[2024-08-08] MEDS: amLODIPine BESYLATE 10 MG TABLET PO (08:13)
[2024-08-08] MEDS: ENOXAPARIN 40 MG/0.4 ML SYRINGE SUB-Q (08:13)
[2024-08-08] MEDS: PANTOPRAZOLE 40 MG TABLET PO (08:13)
[2024-08-08] MEDS: levoFLOXacin 750 MG TABLET PO (08:13)
[2024-08-08] MEDS: SERTRALINE HCL 50 MG TABLET 100 MG PO (08:13)
[2024-08-08] MEDS: GABAPENTIN 300 MG CAPSULE PO ×3 (08:13→17:07)
--- NOTE | 2024-08-08 12:33 | PM.IMPN ---
Progress Note: A&P Assessment and Plan (1) Acute hypoxic respiratory failure: Code(s): J96.01 - Acute respiratory failure with hypoxia Status: Acute Assessment and Plan: Patient with complaints of SOB and found by EMS with a SpO2 approximately 60% on room air. ABG 7.43/40/64 on 3L. CXR was clear. Influenza, RSV and COVID PCR was negative. History of PE currently not on anticoagulation. No clinical evidence of VTE and he has another etiology to explain his hypoxia. He was started on bronchodilators, Solu-Medrol. Levaquin added for acute bronchitis. Wean oxygen as tolerated. Okay to stop tele. Check Echo with bubble (2) COPD exacerbation: Code(s): J44.1 - Chronic obstructive pulmonary disease with (acute) exacerbation Status: Acute Assessment and Plan: As above Anoro resumed. (3) Tobacco abuse: Code(s): Z72.0 - Tobacco use Status: Acute Assessment and Plan: Patient was educated about the benefits of smoking cessation. (4) Essential hypertension: Code(s): I10 - Essential (primary) hypertension Status: Acute Assessment and Plan: Patient's blood pressure was reviewed on 08/08/24 Blood pressure remains well controlled. Will continue to monitor Plan DVT prophylaxis - Lovenox Code status - full code Subjective Date/time seen: 08/08/24 12:33 Interval history: 58yo male with COPD here for SOB. Assuming care. Chart reviewed. Patient currently on 2 L. He does not wear oxygen at home. Slight cough. No chest pain or shortness of breath. No nausea, vomiting, diarrhea. Exam Narrative: AF 97.5 131/77 72 20 90% 2L Gen - NARD Chest - inspiratory expiratory diffuse rhonchi with prolonged expiratory phase. Respiratory rate normal CV - RRR S1/S2. telemetry showing no significant dysrhythmias Abd - Soft, NT/ND, Positive BS Ext - No pedal edema Psych - Nml mood and affect Skin - Warm and dry Objective Data Vital Signs Vital Signs: Vital Signs - 24 hr 08/07/24 13:16 08/07/24 13:20 08/07/24 13:29 Temperature Pulse Rate 75 72 86 Respiratory Rate 20 27 H 23 H Blood Pressure 112/65 Pulse Oximetry 95 Oxygen Delivery Oxygen Flow Rate 08/07/24 14:39 08/07/24 16:00 08/07/24 20:00 Temperature Pulse Rate 75 64 Respiratory Rate Blood Pressure Pulse Oximetry 95 Oxygen Delivery Nasal Cannula Oxygen Flow Rate 3 08/07/24 20:02 08/07/24 20:03 08/07/24 20:13 Temperature Pulse Rate 66 68 Respiratory Rate 20 20 Blood Pressure Pulse Oximetry 95 Oxygen Delivery Nasal Cannula Oxygen Flow Rate 3 08/07/24 22:00 08/08/24 00:00 08/08/24 03:00 Temperature 98.2 F Pulse Rate 77 66 63 Respiratory Rate 20 20 Blood Pressure 119/70 Pulse Oximetry 95 Oxygen Delivery Oxygen Flow Rate 08/08/24 03:10 08/08/24 04:00 08/08/24 06:00 Temperature 97.5 F L Pulse Rate 66 86 78 Respiratory Rate 20 16 Blood Pressure 131/77 Pulse Oximetry 96 Oxygen Delivery Oxygen Flow Rate 08/08/24 08:00 08/08/24 08:02 08/08/24 08:03 Temperature Pulse Rate 71 Respiratory Rate 20 Blood Pressure Pulse Oximetry 95 90 Oxygen Delivery Nasal Cannula Nasal Cannula Oxygen Flow Rate 2 2 08/08/24 08:11 Temperature Pulse Rate 72 Respiratory Rate 20 Blood Pressure Pulse Oximetry Oxygen Delivery Oxygen Flow Rate Intake/Output Intake/Output: Intake & Output 08/05/24 08/06/24 08/07/24 08/08/24 23:59 23:59 23:59 23:59 Intake Total 627 640 Balance 627 640 Meds/Results Medications: Active Medications Generic Name Dose Route Start Last Admin Trade Name Freq PRN Reason Stop Dose Admin Hydrocodone Bitart/Acetaminophen 1 tab 08/07/24 15:47 08/08/24 06:07 Hydrocodone/Acetaminophen (*Crx) 7.5-325 Mg Tablet PO 1 tab Q12H PRN Administration Back Pain Albuterol 2.5 mg 08/07/24 14:00 08/08/24 08:01 Albuterol Sulfate Neb 2.5 Mg/3 Ml Inh INHALATION 2.5 mg Q6HRT DIXIE Administration Amlodipine Besylate 10 mg 08/08/24 09:00 08/08/24 08:13 Amlodipine Besylate 10 Mg Tablet PO 10 mg DAILY DIXIE Administration Enoxaparin Sodium 40 mg 08/08/24 09:00 08/08/24 08:13 Enoxaparin 40 Mg/0.4 Ml Syringe SUB-Q 40 mg DAILY DIXIE Administration Gabapentin 300 mg 08/07/24 17:00 08/08/24 12:26 Gabapentin 300 Mg Capsule PO 300 mg TID DIXIE Administration Levofloxacin 750 mg 08/08/24 09:00 08/08/24 08:13 Levofloxacin 750 Mg Tablet PO 750 mg DAILY DIXIE Administration Methylprednisolone Sodium Succinate 60 mg 08/07/24 12:00 08/08/24 12:26 Methylprednisolone Sod Succ 125 Mg Vial IV PUSH 60 mg Q6HR DIXIE Administration Ondansetron HCl 4 mg 08/07/24 15:50 Ondansetron Hcl Odt 4 Mg Tablet PO Q8H PRN NAUSEA/VOMITING Oxybutynin Chloride 5 mg 08/08/24 09:00 08/08/24 08:13 Oxybutynin Chloride 5 Mg Tablet PO 5 mg DAILY DIXIE Administration Pantoprazole Sodium 40 mg 08/08/24 09:00 08/08/24 08:13 Pantoprazole 40 Mg Tablet PO 40 mg QAM DIXIE Administration Sertraline HCl 100 mg 08/08/24 09:00 08/08/24 08:13 Sertraline Hcl 50 Mg Tablet PO 100 mg DAILY DIXIE Administration Umeclidinium/Vilanterol 1 puff 08/08/24 09:00 08/08/24 08:01 Umeclidinium/Vilanterol 62.5-25 Mcg Ellipta INHALATION 1 puff DAILY DIXIE Administration Radiology Results: ITS Impressions Chest X-Ray 08/07/24 08:54 Impression: Normal chest.
--- NOTE | 2024-08-08 16:53 | PC.NURSE ---
On 08/08/24, the student, [ Cliff Pratt], provided care and completed [facility] documentation on this patient. I have reviewed the student's documentation and agree with the findings.
[2024-08-08] MEDS: LOPERAMIDE HCL 2 MG CAPSULE 4 MG PO (18:38)
[2024-08-09] VITALS (14 sets, daily range): BP systolic 108–125; BP diastolic 64–78; PULSE 67–88; RESP 16–20; TEMP 36.8–37.4; O2SAT 91–98
[2024-08-09] MEDS: ALBUTEROL SULFATE NEB 2.5 MG/3 ML INH INHALATION ×4 (02:25→19:25)
[2024-08-09] MEDS: methylPREDNISolone SOD SUCC 125 MG VIAL 60 MG IV PUSH ×3 (05:10→17:23)
[2024-08-09 07:16] LABS: Basophils Percent Auto 0.2 % (0.2-1.2); Eosinophils Percent Auto 0.1 % (0-4.4); Hematocrit 32.6 % (42.0-52.0); Hemoglobin 11.2 g/dL (14.0-18.0); Immature Granulocyte Percent A 0.8 % (0-0.5); Lymphocytes Absolute Auto 0.66 K/mm3 (0.9-3.2); Lymphocytes Percent Auto 5.1 % (18.3-44.2); Mean Corpuscular HGB Conc 34.4 g/dl (32-36); Mean Corpuscular Volume 96.2 fl (80-100); Mean Platelet Volume 8.5 fl (7.4-10.4); Monocytes Absolute Auto 0.2 K/mm3 (0.1-0.6); Monocytes Percent Auto 1.4 % (2.6-8.5); Neutrophils Percent Auto 92.4 % (45.5-73.1); Platelet Count Result 293 k/mm3 (150-375); Red Blood Count 3.39 M/mm3 (4.6-6.20)
[2024-08-09 07:31] LABS: Anion Gap 7 mmol/L (4-12); Blood Urea Nitrogen 12 mg/dL (9-20); Calcium 9.1 mg/dL (8.4-10.2); Carbon Dioxide 27 mmol/L (22-30); Chloride 92 mmol/L (98-107); Estimated CRCL calculation 131 ml/min; Estimated Glomerular Filt Rate > 60; Glucose 127 mg/dL (65-110); Potassium 3.7 mmol/L (3.4-5.0); Sodium 126 mmol/L (137-145)
[2024-08-09] MEDS: UMECLIDINIUM/VILANTEROL 62.5-25 MCG ELLIPTA 1 PUFF INHALATION (08:22)
[2024-08-09] MEDS: PANTOPRAZOLE 40 MG TABLET PO (09:16)
[2024-08-09] MEDS: levoFLOXacin 750 MG TABLET PO (09:16)
[2024-08-09] MEDS: amLODIPine BESYLATE 10 MG TABLET PO (09:16)
[2024-08-09] MEDS: oxyBUTYnin CHLORIDE 5 MG TABLET PO (09:16)
[2024-08-09] MEDS: GABAPENTIN 300 MG CAPSULE PO ×3 (09:17→17:23)
[2024-08-09] MEDS: SERTRALINE HCL 50 MG TABLET 100 MG PO (09:17)
[2024-08-09] MEDS: ENOXAPARIN 40 MG/0.4 ML SYRINGE SUB-Q (09:17)
[2024-08-09] MEDS: HYDROcodone/acetaminophen (*CRX) 7.5-325 MG TABLET 1 TAB PO (09:30)
--- NOTE | 2024-08-09 11:16 | PM.IMPN ---
Progress Note: A&P Assessment and Plan (1) Acute hypoxic respiratory failure: Code(s): J96.01 - Acute respiratory failure with hypoxia Status: Acute Assessment and Plan: Patient with complaints of SOB and found by EMS with a SpO2 approximately 60% on room air. ABG 7.43/40/64 on 3L. CXR was clear. Influenza, RSV and COVID PCR was negative. History of PE currently not on anticoagulation. No clinical evidence of VTE and he has another etiology to explain his hypoxia. He was started on bronchodilators, Solu-Medrol. Levaquin added for acute bronchitis. He has clinical improvement. CXR remains clear. Weaned oxygen to 1L. Echo showing normal EF and intact septum. Home o2 evaluation. Change to oral prednisone. (2) COPD exacerbation: Code(s): J44.1 - Chronic obstructive pulmonary disease with (acute) exacerbation Status: Acute Assessment and Plan: As above Continue Anoro (3) Tobacco abuse: Code(s): Z72.0 - Tobacco use Status: Acute Assessment and Plan: Patient was educated about the benefits of smoking cessation. (4) Essential hypertension: Code(s): I10 - Essential (primary) hypertension Status: Acute Assessment and Plan: Patient's blood pressure was reviewed on 08/09 Blood pressure remains well controlled. Will continue to monitor (5) Hyponatremia: Code(s): E87.1 - Hypo-osmolality and hyponatremia Status: Inactive Assessment and Plan: Na dropped to 126 today. Patient states this is common for him TSH normal. Raji 7. UCr 27.6. FENa 0.09%. Related to poor oral intake? or insensible losses? Give NS x 500mL and repeat Na tomorrow. Plan DVT prophylaxis - Lovenox Code status - full code Subjective Date/time seen: 08/09/24 11:16 Interval history: 58yo male with COPD here for SOB. No problems overnight. no SOB or CP. No pleuritic CP. No n/v. Did have loose stool this morning. Exam Narrative: AF 98.2 125/78 69 20 98% 2L Gen - NARD Chest - inspiratory and expiratory diffuse rhonchi CV - RRR S1/S2 Abd - Soft, NT/ND, Positive BS Ext - No pedal edema Psych - Nml mood and affect Skin - Warm and dry Objective Data Vital Signs Vital Signs: Vital Signs - 24 hr 08/08/24 12:00 08/08/24 14:05 08/08/24 14:14 Temperature Pulse Rate 74 80 80 Respiratory Rate 22 H 20 Blood Pressure Pulse Oximetry Oxygen Delivery Oxygen Flow Rate Fraction of Inspired Oxygen 08/08/24 15:11 08/08/24 21:02 08/08/24 21:02 Temperature 98.6 F Pulse Rate 88 66 Respiratory Rate 16 20 Blood Pressure 118/74 Pulse Oximetry 95 96 Oxygen Delivery Nasal Cannula Oxygen Flow Rate 2 Fraction of Inspired Oxygen 08/08/24 21:10 08/08/24 21:42 08/09/24 02:25 Temperature 98.3 F Pulse Rate 76 66 80 Respiratory Rate 20 18 20 Blood Pressure 127/79 Pulse Oximetry 96 Oxygen Delivery Oxygen Flow Rate Fraction of Inspired Oxygen 08/09/24 02:35 08/09/24 06:00 08/09/24 08:24 Temperature 98.2 F Pulse Rate 77 70 67 Respiratory Rate 20 16 20 Blood Pressure 125/78 Pulse Oximetry 98 98 Oxygen Delivery Nasal Cannula Oxygen Flow Rate 2 Fraction of Inspired Oxygen 08/09/24 08:24 08/09/24 08:32 Temperature Pulse Rate 67 69 Respiratory Rate 20 20 Blood Pressure Pulse Oximetry Oxygen Delivery Oxygen Flow Rate Fraction of Inspired Oxygen Intake/Output Intake/Output: Intake & Output 08/06/24 08/07/24 08/08/24 08/09/24 23:59 23:59 23:59 23:59 Intake Total 627 2020 1180 Output Total 800 Balance 627 2020 380 Meds/Results Medications: Active Medications Generic Name Dose Route Start Last Admin Trade Name Freq PRN Reason Stop Dose Admin Hydrocodone Bitart/Acetaminophen 1 tab 08/07/24 15:47 08/09/24 09:30 Hydrocodone/Acetaminophen (*Crx) 7.5-325 Mg Tablet PO 1 tab Q12H PRN Administration Back Pain Albuterol 2.5 mg 08/07/24 14:00 08/09/24 08:22 Albuterol Sulfate Neb 2.5 Mg/3 Ml Inh INHALATION 2.5 mg Q6HRT DIXIE Administration Amlodipine Besylate 10 mg 08/08/24 09:00 08/09/24 09:16 Amlodipine Besylate 10 Mg Tablet PO 10 mg DAILY DIXIE Administration Enoxaparin Sodium 40 mg 08/08/24 09:00 08/09/24 09:17 Enoxaparin 40 Mg/0.4 Ml Syringe SUB-Q 40 mg DAILY DIXIE Administration Gabapentin 300 mg 08/07/24 17:00 08/09/24 09:17 Gabapentin 300 Mg Capsule PO 300 mg TID DIXIE Administration Levofloxacin 750 mg 08/08/24 09:00 08/09/24 09:16 Levofloxacin 750 Mg Tablet PO 750 mg DAILY DIXIE Administration Loperamide HCl 2 mg 08/08/24 20:10 Loperamide Hcl 2 Mg Capsule PO PRN PRN Diarrhea Methylprednisolone Sodium Succinate 60 mg 08/07/24 12:00 08/09/24 05:10 Methylprednisolone Sod Succ 125 Mg Vial IV PUSH 60 mg Q6HR DIXIE Administration Ondansetron HCl 4 mg 08/07/24 15:50 Ondansetron Hcl Odt 4 Mg Tablet PO Q8H PRN NAUSEA/VOMITING Oxybutynin Chloride 5 mg 08/08/24 09:00 08/09/24 09:16 Oxybutynin Chloride 5 Mg Tablet PO 5 mg DAILY DIXIE Administration Pantoprazole Sodium 40 mg 08/08/24 09:00 08/09/24 09:16 Pantoprazole 40 Mg Tablet PO 40 mg QAM DIXIE Administration Perflutren Lipid Microsphere 0 ml 08/08/24 12:34 Perflutren Lipid Microspheres 1.5 Ml Vial Diluted To 10 Ml Total Volume IV PUSH 08/11/24 12:34 ONCE PRN adequate visualization Protocol Sertraline HCl 100 mg 08/08/24 09:00 08/09/24 09:17 Sertraline Hcl 50 Mg Tablet PO 100 mg DAILY DIXIE Administration Umeclidinium/Vilanterol 1 puff 08/08/24 09:00 08/09/24 08:22 Umeclidinium/Vilanterol 62.5-25 Mcg Ellipta INHALATION 1 puff DAILY DIXIE Administration Radiology Results: ITS Impressions Chest X-Ray 08/07/24 08:54 Impression: Normal chest. Labs Labs: Laboratory Results - last 24 hr 08/09/24 07:01 WBC 13.0 H RBC 3.39 L Hgb 11.2 L Hct 32.6 L MCV 96.2 MCH 33.0 MCHC 34.4 RDW 13.0 Plt Count 293 MPV 8.5 Immature Gran % (Auto) 0.8 H Neut % (Auto) 92.4 H Lymph % (Auto) 5.1 L [place] % (Auto) 1.4 L Eos % (Auto) 0.1 Baso % (Auto) 0.2 Lymph # (Auto) 0.66 L [place] # (Auto) 0.2 Eos # (Auto) 0.0 Baso # (Auto) 0.0 Abs Immat Gran (auto) 0.10 H Absolute Neuts (auto) 12.0 H Absolute Nucleated RBC 0.000 Nucleated RBC % 0.0 Sodium 126 L Potassium 3.7 Chloride 92 L Carbon Dioxide 27 Anion Gap 7 BUN 12 Creatinine 0.47 L Estim Creat Clear Calc 131 Estimated GFR > 60 Glucose 127 H Calcium 9.1 TSH (Reflex) 1.620
[2024-08-09 11:34] LABS: Urea Random Urine 353 MG/DL
[2024-08-09 11:35] LABS: Sodium Urine Random 7 meq/L
[2024-08-09 11:36] LABS: Creatinine Urine 27.6 mg/dL
[2024-08-09] MEDS: SODIUM CHLORIDE 0.9% IV 500 ML 100 ML IV CONT (21:07)
[2024-08-10] VITALS (11 sets, daily range): BP systolic 106–120; BP diastolic 58–75; PULSE 70–123; RESP 14–20; TEMP 36.3–36.8; O2SAT 90–100
[2024-08-10] MEDS: ALBUTEROL SULFATE NEB 2.5 MG/3 ML INH INHALATION ×3 (01:37→14:12)
[2024-08-10 07:01] LABS: Anion Gap 7 mmol/L (4-12); Blood Urea Nitrogen 11 mg/dL (9-20); Calcium 9.1 mg/dL (8.4-10.2); Carbon Dioxide 28 mmol/L (22-30); Chloride 92 mmol/L (98-107); Estimated CRCL calculation 131 ml/min; Estimated Glomerular Filt Rate > 60; Glucose 118 mg/dL (65-110); Potassium 3.4 mmol/L (3.4-5.0); Sodium 127 mmol/L (137-145)
[2024-08-10] MEDS: UMECLIDINIUM/VILANTEROL 62.5-25 MCG ELLIPTA 1 PUFF INHALATION (07:42)
[2024-08-10] MEDS: PANTOPRAZOLE 40 MG TABLET PO (08:54)
[2024-08-10] MEDS: oxyBUTYnin CHLORIDE 5 MG TABLET PO (08:54)
[2024-08-10] MEDS: levoFLOXacin 750 MG TABLET PO (08:54)
[2024-08-10] MEDS: SERTRALINE HCL 50 MG TABLET 100 MG PO (08:54)
[2024-08-10] MEDS: predniSONE 20 MG TABLET 40 MG PO (08:54)
[2024-08-10] MEDS: amLODIPine BESYLATE 10 MG TABLET PO (08:54)
[2024-08-10] MEDS: ENOXAPARIN 40 MG/0.4 ML SYRINGE SUB-Q (08:55)
[2024-08-10] MEDS: GABAPENTIN 300 MG CAPSULE PO ×2 (08:55→12:52)
[2024-08-10] MEDS: HYDROcodone/acetaminophen (*CRX) 7.5-325 MG TABLET 1 TAB PO (09:06)
--- NOTE | 2024-08-10 10:55 | HOMEO2EVAL ---
Evaluation was performed at [facility] Home Oxygen Evaluation RC: Home Oxygen (O2) Evaluation Start: 08/10/24 07:08 Freq: ONCE Status: Active Protocol: RPE Activity Type Activity Date Activity User E-sign Co-sign Detail Recorded Client Recorded Date Recorded By Document 08/10/24 10:45 [place]TE [email or web address] 08/10/24 10:55 [place] Document 08/10/24 10:50 [place]TE [email or web address] 08/10/24 10:55 [place] Document 08/10/24 10:54 [place] [email or web address] 08/10/24 10:55 [place] 08/10/24 08/10/24 08/10/24 10:45 10:50 10:54 Home O2 Evaluation [Oxygen] -Test Phase Resting Exercise Resting -Oxygen Delivery Room Air Room Air Room Air [Pulse Oximetry] -Pulse Oximetry (90-100 %) 93 90 93 [Pulse Rate] -Pulse Rate (60-100 beats/min) 103 H 123 H 106 H [Exercise] -Ambulation Distance (feet) 150 -Ambulation Distance (meters) 45.71 [Comments] -Home Oxygen Evaluation Comments No home O2 needed at this time. [Charges] -Evaluation Charges O2 Evaluation by Pulmonary
--- NOTE | 2024-08-10 10:55 | PCRCNOTE ---
Home O2 eval done. no home O2 needed at this time.
--- NOTE | 2024-08-10 15:24 | PM.DS ---
DS: Admitting Diagnosis Discharge Date 08/10/24 Admitting Diagnosis Shortness of breath DS: Discharge Diagnosis Discharge Diagnosis (1) Acute hypoxic respiratory failure: Code(s): J96.01 - Acute respiratory failure with hypoxia Status: Acute (2) COPD exacerbation: Code(s): J44.1 - Chronic obstructive pulmonary disease with (acute) exacerbation Status: Acute (3) Tobacco abuse: Code(s): Z72.0 - Tobacco use Status: Acute (4) Essential hypertension: Code(s): I10 - Essential (primary) hypertension Status: Acute (5) Hyponatremia: Code(s): E87.1 - Hypo-osmolality and hyponatremia Status: Inactive DS: Summary Hospital Course Reason for hospitalization: 58yo male with COPD here for SOB. Please see H&P for details. Hospital Course: Patient with complaints of SOB and found by EMS with a SpO2 approximately 60% on room air. ABG 7.43/40/64 on 3L. CXR was clear. Influenza, RSV and COVID PCR was negative. History of PE currently not on anticoagulation. No clinical evidence of VTE and he had another etiology to explain his hypoxia. He was started on bronchodilators, Solu-Medrol. Levaquin added for acute bronchitis. He had clinical improvement. CXR remained clear. Echo showing normal EF and intact septum. Weaned to room air. Home O2 evaluation showing no home oxygen needs. Patient was educated about the benefits of smoking cessation. He denies vaping. Na dropped to 126. Patient states this is a common occurrence for him. TSH normal. Raji 7. UCr 27.6. FENa 0.09%. Related to poor oral intake? or insensible losses? He was give IV fluids with some improvement. He feels well. No complaints. No SCHERER. He overall did well and was able be discharged home on 08/10/2024. Status at Discharge Cognitive/behavioral status at discharge: stable Time Spent with Patient Time attestation: Total time spent providing and/or coordinating discharge services: 35 minutes Time spent: Greater than 30 minutes Exam Narrative: AF 98.2 106/75 70 14 100% ra Gen - NARD Chest - scattered diffuse expiratory rhonchi CV - RRR S1/S2 Abd - Soft, NT/ND, Positive BS Ext - No pedal edema Psych - Nml mood and affect Skin - Warm and dry DS: Data Data Completed and Pending Labs on day of discharge: Labs from last 24 hours 08/10/24 08/09/24 06:30 22:48 Sodium 127 L Potassium 3.4 Chloride 92 L Carbon Dioxide 28 Anion Gap 7 BUN 11 Creatinine 0.47 L Estim Creat Clear Calc 131 Estimated GFR > 60 Glucose 118 H Calcium 9.1 Ur L.pneumophila Ag Pending Discharge Plan Discharge Attending physician on discharge: Sam Gill Discharging Clinician: Sam Gill Anticipated Discharge Date/Time: 08/10/24 15:31 Patient Disposition: Home, Self-Care Activity: as tolerated Diet: heart healthy Discharge Instructions: Please complete your antibiotic course even if you are starting to feel well. Contact your doctor or call 911 and come to the Emergency Room if you have fevers, increasing shortness of breath or other worrisome symptoms. Avoid NSAIDs (ibuprofen, naproxen, Aleve). Tylenol is safe to take. Follow-up with your primary care provider in 1-2 weeks. Please call for appointment. Thank you for using [facility] for your health care needs. Patient Instructions: Antibiotic Form Patient Language: Montenegrin Stand Alone Forms: General Discharge Information Follow-up/Referrals: Jitendra Fitzpatrick APRN [Primary Care Provider] - Call for Appointment Discharge Medications: New prednisone 20 mg Tablet 40 mg PO DAILY@0800 3 Days Qty: 6 0RF levofloxacin 750 mg tablet 750 mg PO DAILY Qty: 1 0RF Continued esomeprazole magnesium [Nexium 24HR] 20 mg tablet,delayed release (DR/EC) 20 mg PO DAILY Stiolto Respimat 2.5-2.5 mcg/actuation mist 2 puff inhalation Q24H Qty: 4 11RF hydrocodone-acetaminophen 7.5-325 mg tablet 1 tablet PO Q12H PRN (Reason: Back Pain) sildenafil [Viagra] 50 mg tablet 100 mg PO DAILY PRN (Reason: Sexual Activity) Rx Instructions: TAKE 2 TABLET BY ORAL ROUTE DAILY NEEDED APPROXIMATELY 1 HOUR BEFORE SEXUAL ACTIVITY oxybutynin chloride 5 mg tablet 5 mg PO DAILY Qty: 90 1RF sertraline 100 mg tablet 100 mg PO DAILY Qty: 90 1RF gabapentin 300 mg capsule 300 mg PO TID 90 Days Qty: 270 1RF amlodipine 10 mg tablet 10 mg PO DAILY Qty: 90 2RF ondansetron 4 mg tablet,disintegrating See Rx Instructions .ROUTE .COMPLEX Qty: 40 1RF Dose Instruction: DISSOLVE 1 TABLET IN MOUTH EVERY 8 HOURS NEEDED FOR NAUSEA AND VOMITING Rx Instructions: DISSOLVE 1 TABLET IN MOUTH EVERY 8 HOURS NEEDED FOR NAUSEA AND VOMITING Discontinued azithromycin 250 mg tablet See Rx Instructions PO .COMPLEX Qty: 6 0RF Rx Instructions: For 250 mg dose pack: take 500 mg today (day 1), then 250 mg for 4 days (days 2-5) PO Date of admission: 08/09/24 10:48 Primary Care Provider: Jitendra Fitzpatrick Admitting Provider: Didier Hill Attending physician on admission: Didier Hill Condition: Stable Hospitalist MIPS Heart Failure (Exclusion) Patient has history of Heart Transplant or Left Ventricular Assistive Device?: No IF YES, STOP HERE Heart Failure (Qualifier) Patient has current or prior documentation of LVEF less than or equal to 40%, or mod/servere depressed LVSF?: No IF NO, STOP HERE
[2024-08-13 18:54] LABS: Legionella pneumophila Ag Ur. NOT DETECTED
== END 2024-08-10 16:18 | disposition home or self-care (01) | DRG 191 ==
LOC: ANHED 09:29 → ANH3MEDSUR 10:39
PROVIDERS: Admitting Provider General Practice; Emergency Provider Emergency Medicine; PCP Nurse Practitioner; Visit Provider Internal Medicine
DX: J44.1 Chronic obstructive pulmonary disease with (acute) exacerbation (principal); E87.1 Hypo-osmolality and hyponatremia; J44.0 Chronic obstructive pulmonary disease with (acute) lower respiratory infection; J20.9 Acute bronchitis, unspecified; M51.369 Other intervertebral disc degeneration, lumbar region without mention of lumbar back pain or lower extremity pain; M47.22 Other spondylosis with radiculopathy, cervical region; D64.9 Anemia, unspecified; E78.2 Mixed hyperlipidemia; F41.9 Anxiety disorder, unspecified; F17.210 Nicotine dependence, cigarettes, uncomplicated; Z86.711 Personal history of pulmonary embolism; Z20.822 Contact with and (suspected) exposure to COVID-19
CPT/HCPCS: 36415; 36600; 71046; 80048; 80053; 82375; 82570; 82805; 83050; 84300; 84443; 84540; 85018; 85025; 87449; 87637; 93005; 93306; 94618; 94640; 96365; 96372; 96375; 96376; 99285; A9270; G0378; J1650; J1956; J2919; J7030; J7512

== ENCOUNTER 2024-10-23 16:45 | Outpatient (CLI) | payer MEDICARE, SELFPAY ==
--- OUTSIDE RECORDS SUMMARY | 2024-10-23 17:01 | XMS_ITS | Clinical Summary ---
Author Organization [facility] Address [facility] [place] [address] Care Team Providers Care Ethnoarchaeology Professor Name Role Phone Addison Remy MD Primary Care Provider [phone] Marcus Hobbs MD Unavailable Unavailabl e Damion Parra MD Unavailable [phone] Allergies Active Allergy Reactions Criticality Noted Date [...] (six) hours as needed for Wheezing. 01/13/20 Active FEROSUL 325 (65 Fe) MG tablet [...] 8 (eight) hours as needed. 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 Spinal arachnoid cyst 12/12/2018 Thoracic stenosis 11/30/2018 Myelopathy ([facility]) 11/10/2018 Lumbar facet joint pain [...] 72 02/28/2020 11:14 AM CDT Temperature 36.7 C (98.1 F) 03/09/2019 9:07 AM CDT Respiratory Rate 15 01/17/2019 11:45 AM CDT Oxygen Saturation 96% 02/28/2020 11:14 AM CDT Inhaled Oxygen Concentration - - Weight 101.6 kg (224 lb) 02/28/2020 11:14 AM CDT Height 170.2 cm (5' 7 ) 02/28/2020 11:14 AM CDT Body Mass Index 35.08 02/28/2020 11:14 AM CDT Plan of Treatment Health Maintenance Due Date Last Done Comments Colorectal Cancer Screening Colonoscopy (10 Years) 1964 Annual Physical 11/08/1967 Pneumococcal Vaccine: Pediat rics (0 to 5 Years) and At-Risk Patients (6 to 49 Years) (1 of 2 - PCV) 1970 Hepatitis C 1982 DTaP, Tdap and Td Vaccines ( 1 - Tdap) 11/08/1983 Zoster Vaccines (1 of 2) 2014 COVID-19 Vaccine (1 - 2023-2 5 season) 2024 Meningococcal B Vaccine Aged Out No l onger eligible based on patient's age to complete this topic Meningococcal Vaccine Aged Out No mio dc eligible based on patient's age to complete this topic RSV Immunizations Under 20 Months Aged Out No longer eligible based on patient's age to complete this topic Medical Devices Implanted Type Area Shellfish Manager Device Identifier Shelf Expiration Date Model / Serial / Lot Duramatrix Onlay Plus 3x3 - [id number] Implanted:Qty : 1 on 12/12/2018 by Marcus Hobbs MD at [facility] N/A: Thoracic [employer] - [employer] 10/09/2019 [id number] / / [id number] Insurance MEDICAID UHC Advance Directives * Full Code (Latest Code Status on File) Date Activated Date Inactivated Comments 12/20/2018 6:57 PM 12/27/2018 2:38 PM * Full Code Date Activated Date Inactivated Comments 12/12/2018 8:17 PM 12/20/2018 6:41 PM Care Teams Ethnoarchaeology Professor Relationship Specialty Start Date End Date Addison Remy MD [address] [place] [address] PCP - General INTERNAL MEDICINE 11/30/18 Marcus Hobbs MD [address] [place] [address] Surgeon NEUROLOGICAL SURGERY 12/06/18 Damion Parra MD [address] [place] [address] [place] Job Setter INTERVENTIONAL CARDIOLOGY 01/24/19
--- OUTSIDE RECORDS SUMMARY | 2024-10-23 17:01 | XMS_ITS | Encounter Summary ---
Author Organization [facility] Address [address] [place] [id number] Care Team Providers Care Film Numberer Name Role Phone Addison Remy MD Primary Care Provider [phone] Marcus Hobbs MD Unavailable Unavailabl e Damion Parra MD Unavailable [phone] Encounter Details Date Type Department Care Team (Late st Contact Info) Description 12/19/2018 Prep for Procedure [facility] - [address], [address] [place] [id number] Marcus Hobbs MD Social History Tobacco Use [...] 12/20/2018 8:09 PM CDT Teresa Veloz RN Ken tive * Question Answer Date of Assessment [...] Assessment Author Status Yes 12/12/2018 8:25 PM ANGELINAT Delicia Estrada RN Active * Do you have difficulty dressing or bathing? Answer Date of Assessment Author Status No 12/12/2018 8:25 PM ANGELINAT Delicia Estrada RN Active * Because of a physical, mental, or emotional condition, do you have difficulty doing errands alone such as visiting a doctor's office or shopping? Answer Date of Assessment Author Status No 12/12/2018 8:25 PM CDT Delicia Estarda RN Active documented as of this encounter [...] Date Author Status No 12/12/2018 8:25 PM Delicia Sandhu RN Active documented in this encounter Plan of Treatment Not on file documented as of this encounter Visit Diagnoses Not on filedocumented in this encounter Care Teams Film Numberer Relationship Specialty Start Date End Date Addison Remy MD [address] [place] [address] PCP - General INTERNAL MEDICINE 11/30/18 Marcus Hobbs MD [address] [place] [address] Surgeon NEUROLOGICAL SURGERY 12/06/18 Damion Parra MD [address] [place] [address] [place] Manager Philosophy INTERVENTIONAL CARDIOLOGY 01/24/19 documented as of this encounter
--- OUTSIDE RECORDS SUMMARY | 2024-10-23 17:01 | XMS_ITS | Clinical Summary ---
Author Organization [facility] Address [address] [place] [address] Care Team Providers Care Child Care Group Leader Name Role Phone Addison Remy MD Primary Care Provider [phone] Source Comments [facility],non-owned Affiliates and Associated Physician Practices is amultiple site organization consisting of ambulatory clinics and hospital sitesin [place], [place], [place] and [place]. This disclosure is being madepursuant to the Care Everywhere program and may not contain all information available regarding this patient. Last updated 18.[facility] Allergies Active Allergy Reactions Criticality Noted Date Comments Codeine Other Medium 06/21/2017 insomnia Medications * Be aware that medications may not be up to date on this document. Alwaysverify current medications with the patient. acetaminophen (TYLENOL) 325 MG tablet Take 325 mg by mouth once daily 9 Active albuterol HFA (PROVENTIL;CONOR TOLIN;PROAIR) 108 (90 Base) MCG/ACT inhaler Inhale 2 puffs by mouth every 6 hours as needed 9 Active amLODIPine (NORVASC) 10 MG tablet Take 10 mg by mouth once daily 9 Active amLODIPine (NORVASC) 10 MG tablet 0 Active atorvastatin (LIPITOR) 10 MG tablet Take 10 mg by mouth once daily 9 Active HYDROcodone-ac etaminophen (NORCO) 5-325 MG tablet Take 1 tablet by mouth every 8 hours as needed 9 Active oxybutynin (DITROPAN) 5 MG tablet Take 5 mg by mouth once daily 9 Active sildenafil (VIAGRA) 50 MG tablet TAKE 1 TABLET BY MOUTH ONCE DAILY NEEDED APPROXIMATELY 1 HOUR BEFORE SEXUAL ACTIVITY 9 Active traMADol (ULTRAM) 50 MG tablet Take 50 mg by mouth 9 Active atorvastatin (LIPITOR) 20 MG tablet Take 20 mg by mouth once daily 1 Active D3-50 1.25 MG (05675 UT) Take 1 capsule by mouth every 7 days 0 Active SYMBICORT 160-4.5 MCG/ACT inhaler INHALE 2 PUFFS BY MOUTH EVERY 12 HOURS 1 Active gabapentin (NEURONTIN) 300 MG capsule Take 300 mg by mouth 3 times daily 1 Active escitalopram (LEXAPRO) 20 MG tablet TAKE 1 TABLET BY MOUTH ONCE DAILY TAKE WITH 10 MG FOR A TOTAL DOSE OF 30 MG 1 Active ANORO ELLIPTA 62.5-25 MCG/INH inhaler INHALE 1 PUFF BY MOUTH EVERY 24 HOURS 1 Active Social History Tobacco Use Types Packs/Day Years Used Date Smoking Tobacco: Every Day Smokeless Tobacco: Never Alcohol Use Standard Drinks/Week Comments Not Currently 0 (1 standard drink = 0.6 oz pur e alcohol) Sex and Gender Information Value Date Recorded Sex Assigned at Not on file Legal Sex Male 12:57 PM ACCOUNTS RECEIVABLE COORDINATOR Gender Identity Not on file Sexual Orientation Not on file Last Filed Vital Signs Vital Sign Reading Time Taken Comments Blood Pressure 119/82 04/13/2021 11:41 AM CDT Pulse 73 04/13/2021 11:41 AM CDT Temperature 36.3 C (97.3 F) 02/25/2020 10:45 AM CDT Respiratory Rate - - Oxygen Saturation 100% 04/13/2021 11:41 AM CDT Inhaled Oxygen Concentration - - Weight 93.9 kg (207 lb) 04/13/2021 11:41 AM CDT Height 170.2 cm (5' 7 ) 04/13/2021 11:41 AM CDT Body Mass Index [...] VACCINE (1 - 2023-2 5 season) 2024 DEPRESSION SCREENING 07/11/2024 MEDICARE AWV CALENDAR YEAR 2024 INFLUENZA VACCINE (Season Ended) 2025 HIB VACCINE Aged Out No longer eligi ble based on patient's age to complete this topic HPV VACCINE Aged Out No longer eligi ble based on patient's age to complete this topic MENINGOCOCCAL (Group B) VACC INE SHARED DECISION-MAKING Aged Out No longer eligibl e based on patient's age to complete this topic MENINGOCOCCAL GROUPS A/C/Y/W VACCINE Aged Out No longer eligible b ased on patient's age to complete this topic Insurance [facility] MANAGED MEDICARE ADV MEDICAID - OUT OF STATE Care Teams Child Care Group Leader Relationship Specialty Start Date End Date Addison Remy MD [address] [place] [id number] PCP - General 08/29/19
--- OUTSIDE RECORDS SUMMARY | 2024-10-23 17:01 | XMS_ITS | Encounter Summary ---
Author Organization [facility] Address [address] [place] [address] Care Team Providers Care Speech Language Pathologist Travel Name Role Phone Addison Remy MD Primary Care Provider [phone] Marcus Hobbs MD Unavailable Unavailabl e Damion Parra MD Unavailable [phone] Encounter Details Date Type Department Care Team (Late st Contact Info) Description 03/30/2021 Abstract [facility] [address] Nini Rushing [place] Social History Tobacco Use [...] 12/20/2018 8:09 PM Teresa Willoughby RN Active * Because of a physical, [...] on filedocumented in this encounter Care Teams Speech Language Pathologist Travel Relationship Specialty Start Date End Date Addison Remy MD [address] [place] [address] PCP - General INTERNAL MEDICINE 11/30/18 Marcus Hobbs MD [address] [place] [address] Surgeon NEUROLOGICAL SURGERY 12/06/18 Damion Parra MD [address] [place] [address] [place] Frame Hand INTERVENTIONAL CARDIOLOGY 01/24/19 documented as of this encounter
== END 2024-10-23 16:46 | disposition home or self-care (01) ==
PROVIDERS: PCP Nurse Practitioner; Visit Provider Pain Medicine Pain Medicine
DX: M25.561 Pain in right knee (principal); M25.562 Pain in left knee
CPT/HCPCS: 73564

== ENCOUNTER 2024-10-25 07:46 | Outpatient (CLI) | payer MEDICARE, SELFPAY ==
--- NOTE | ~2024-10-25 | CT_ITS ---
CT Scan of the Chest without Contrast: Clinical Indication: Lung cancer screening, nicotine dependence Technique: Contiguous sections were acquired throughout the chest without intravenous contrast. Dose reduction technique was used on this scan by utilizing automated exposure control and iterative recon struction technique. The dose-length product (DLP) was 100.79 mGy-cm. COMPARISON: 10/24/2023 Findings: There is no evidence of any significant mediastinal, hilar or axillary lymphadenopathy. Coronary rosamaria ry calcifications are present. There is no evidence of pleural or pericardial effusion. The lungs are clear. No pulmonary nodules or infiltrates are noted. Images through the upper abdomen reveal no abnormalities. Impression: Lung RADS 1: Negative. 12 month follow-up screening CT advised. Reviewed, dictated and finalized at location . Impression: Lung RADS 1: Negative. 12 month follow-up screening CT advised.
--- OUTSIDE RECORDS SUMMARY | 2024-10-25 07:49 | XMS_ITS | Encounter Summary ---
Author Organization [facility] Address [address] [place] [address] Care Team Providers Care Pocket Flap Creasing Machine Operator Name Role Phone Addison Remy MD Primary Care Provider [phone] Marcus Hobbs MD Unavailable Unavailabl e Damion Parra MD Unavailable [phone] Encounter Details Date Type Department Care Team (Late st Contact Info) Description 03/30/2021 Abstract [facility] [address] Nini Rushing [place] Social History Tobacco Use [...] on filedocumented in this encounter Care Teams Pocket Flap Creasing Machine Operator Relationship Specialty Start Date End Date Addison Remy MD [address] [place] [address] PCP - General INTERNAL MEDICINE 11/30/18 Marcus Hobbs MD [address] [place] [address] Surgeon NEUROLOGICAL SURGERY 12/06/18 Damion Parra MD [address] [place] [address] [place] Flight Line Mechanic INTERVENTIONAL CARDIOLOGY 01/24/19 documented as of this encounter
--- OUTSIDE RECORDS SUMMARY | 2024-10-25 07:50 | XMS_ITS | Encounter Summary ---
Author Organization [facility] Address [address] [place] [address] Care Team Providers Care Button Pusher Name Role Phone Addison Remy MD Primary Care Provider [phone] Marcus Hobbs MD Unavailable Unavailabl e Damion Parra MD Unavailable [phone] Encounter Details Date Type Department Care Team (Late st Contact Info) Description 12/19/2018 Prep for Procedure [facility] - [address], [address] [place] [id number] Marcus Hobbs MD Social History Tobacco Use [...] on filedocumented in this encounter Care Teams Button Pusher Relationship Specialty Start Date End Date Addison Remy MD [address] [place] [address] PCP - General INTERNAL MEDICINE 11/30/18 Marcus Hobbs MD [address] [place] [address] Surgeon NEUROLOGICAL SURGERY 12/06/18 Damion Parra MD [address] [place] [address] [place] Instructor Physical INTERVENTIONAL CARDIOLOGY 01/24/19 documented as of this encounter
--- OUTSIDE RECORDS SUMMARY | 2024-10-25 07:50 | XMS_ITS | Clinical Summary ---
Author Organization [facility] Address Pending sale to [facility] [place] [address] Care Team Providers Care Fish Grader Name Role Phone Addison Remy MD Primary Care Provider [phone] Marcus Hobbs MD Unavailable Unavailabl e Damion Parra MD Unavailable [phone] Allergies Active Allergy Reactions Criticality Noted Date [...] vein thrombosis (DVT) o f lower extremity ([facility]) 03/18/2021 Chest pain 03/18/2021 Tobacco dependence 03/18/2021 Primary hypertension 03/18/2021 Coronary artery calcification 03/18/2021 S/P laminectomy 01/02/2019 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 Spinal arachnoid cyst 12/12/2018 Thoracic stenosis 11/30/2018 Myelopathy ([facility]) 11/10/2018 Lumbar facet joint pain 11/10/2018 Spinal [...] this topic Medical Devices Implanted Type Area Boil Off Worker Device Identifier Shelf Expiration Date Model / Serial / Lot Duramatrix Onlay Plus 3x3 - [id number] Implanted:Qty : 1 on 12/12/2018 by Marcus Hobbs MD at [facility] N/A: Thoracic [employer]ANI[employer] 10/09/2019 [id number] / / [id number] Insurance MEDICAID UHC Advance Directives * Full Code (Latest Code Status on File) Date Activated Date Inactivated Comments 12/20/2018 6:57 PM 12/27/2018 2:38 PM * Full Code Date Activated Date Inactivated Comments 12/12/2018 8:17 PM 12/20/2018 6:41 PM Care Teams Fish Grader Relationship Specialty Start Date End Date Addison Remy MD [address] [place] [address] PCP - General INTERNAL MEDICINE 11/30/18 Marcus Hobbs MD [address] [place] [address] Surgeon NEUROLOGICAL SURGERY 12/06/18 Damion Parra MD [address] [place] [address] [place] Ticker Wirer INTERVENTIONAL CARDIOLOGY 01/24/19
--- OUTSIDE RECORDS SUMMARY | 2024-10-25 07:50 | XMS_ITS | Clinical Summary ---
Author Organization [facility] Address [address] [place] [address] Care Team Providers Care Living Advisor Name Role Phone Addison Remy MD Primary Care Provider [phone] Source Comments [facility],non-owned Affiliates and Associated Physician Practices is amultiple site organization consisting of ambulatory clinics and hospital sitesin [place], [place], [place] and [place]. This disclosure is being madepursuant to the Care Everywhere program and may not contain all information available regarding this patient. Last updated 18.[facility] Allergies Active Allergy Reactions Criticality Noted Date [...] once daily 1 Active D3-50 1.25 MG (04707 UT) Take 1 capsule by mouth every [...] on file Legal Sex Male 12:57 PM [employer] Gender Identity Not on file Sexual Orientation [...] 50+ (1 of 2 - PCV) 11/08/1983 ZOSTER VACCINE (1 of 2) 2014 SCREENING FOR DIABETES 04/13/2021 COVID-19 VACCINE (1 - 2023-2 5 season) 2024 DEPRESSION SCREENING 07/11/2024 INFLUENZA VACCINE (Season Ended) 2025 HIB VACCINE [...] patient's age to complete this topic Insurance [facility] MANAGED MEDICARE ADV MEDICAID - OUT OF STATE Care Teams Living Advisor Relationship Specialty Start Date End Date Addison Remy MD [address] [place] [id number] PCP - General 08/29/19
== END 2024-10-25 07:47 | disposition home or self-care (01) ==
PROVIDERS: PCP Nurse Practitioner; Visit Provider Nurse Practitioner Family
DX: Z12.2 Encounter for screening for malignant neoplasm of respiratory organs (principal); Z87.891 Personal history of nicotine dependence
CPT/HCPCS: 71271

== ENCOUNTER 2024-11-27 11:15 | Outpatient (RCR) | payer MEDICARE, SELFPAY ==
--- NOTE | 2024-11-08 13:30 | OPREHPOC ---
Outpatient Therapy Plan of Care This is a Multidisciplinary Plan of Care that may contain components documented by all disciplines (PT, OT, and ST.) PT Problem 1 PT Problem #1 Knowledge Deficit PT Goal 1 Goal / Goal Update * independent with HEP Target Visit 8 PT Problem 2 PT Problem #2 Pain PT Goal 1 Goal / Goal Update * pt report pain L LE at worst of 5/10 Target Visit 8 PT Problem 3 PT Problem #3 Impaired Strength PT Goal 1 Goal / Goal Update 1* increase strength of L hip and knee to 4/5- pt perform 20 reps of mat exercises 2* bilateral standing ankle PF x 10 reps without UE support 3* with 2 minute walking test, NO toe drag bilateral 4* with walking- good swing through on L with hip and knee flexion Target Visit 8 PT Problem 4 PT Problem #4 Impaired Functional Mobility PT Goal 1 Goal / Goal Update 1* 2 minute walking test distance of 350' with cane to improve community ambulation 2* pt report NO falls Target Visit 8 PT Problem 5 PT Problem #5 Impaired Flexibility PT Goal 1 Goal / Goal Update increase hamstring length to improve hip mobility with supine SLR 1* R 70' 2* L 50' Target Visit 8
--- NOTE | 2024-11-08 13:30 | PTOPEVAL1 ---
Assessment and note entered by Kandi De La O, PT Evaluation Information Assessment Status Evaluation ICD-10 Condition Codes (PT) Pain in left hip M25.552,Pain in left knee M25.562 ,Difficulty Walking R26.2,Abnormalities of gait and mobility R26.9,Weakness R53.1 Other ICD-10 Condition Codes ( R29.898 other musculoskeletal system PT) Onset September 2024 Subjective Information L leg started giving out few months ago; have fallen 2x due to L knee giving out; L LE neuropathy, L hip and knee pain; low back pain; x ray of L knee unremarkable/ L hip per pt- minimal arthritis go to pain management for back, neck and shoulder pain-- injections saw Dr Cartagena, sent him here for therapy and wants him to see neurologist about neck- ? surgery have seen dr about neck surgery about 2-3 years ago; activity: use cane when going out of the house, no cane in the home; disabled/not working; live with his mom, do not have to assist her, except driving her at night; have basement, rarely go down there; do not do any exercises for his legs; Goal: better walking and balance; get leg stronger so don't fall anymore; Reported Pain Level Pain Score Self Report Additional Pain Score Comments pain range in the past week 4-01/17; L hip and knee decrease pain: use of hinged knee brace, hydrocodone- for chronic pain overall increase pain: walking/up about 20 minutes Assessment PT Clinical Summary Denny has the diagnosis of L LE weakness with decreased gait and balance, with 2 recent falls. He has history of chronic back pain, lumbar surgery, neck pain and neuropathy in L LE. Self assessment functional scale rating of 70% limitation in activity level. X ray of his L knee was negative and hip xray report not in system yet, pt reports minimal arthritis. He is disabled and not working. With the evaluation; pt has weakness in L LE; 5 reps sit/stand time of 19 seconds; 2 minute walking test distance of 290' with cane; with walking and fatigue--toe drag and decreased L hip and knee flexion; tightness over bilateral hamstring L tighter than R. Skilled PT services are indicated for therapeutic exercises to increase LE strength, gait and balance skills, with education for HEP and safety with mobility. Plan of Care Interventions Gait Training,Neuro Re-education,Patient/Caregiver Education,Therapeutic Activities,Therapeutic Exercise PT Services Indicated Yes Treatment Frequency and 1-2x/wk for 8 visits Duration These treatments will address the objective and functional deficits as defined above. The patient will be advanced safely and appropriately in order for the patient to progress towards his/her prior level of function. Additional exercises will be introduced and as well as a comprehensive home exercise program upon discharge, if needed, ?to ensure carryover of functional gains achieved in the clinic. This treatment plan has been reviewed and agreement upon by the patient.
--- NOTE | 2024-11-22 08:40 | PCPTNOTE ---
Canceled not feeling well today. AKS
--- NOTE | 2024-11-29 10:43 | PCPTNOTE ---
Cancelled, sick. AKS
--- NOTE | 2024-12-04 13:24 | PCPTNOTE ---
pt called and canceled today's reeval appt, due to having another dr appt.
--- NOTE | 2025-01-23 14:24 | OPREHPOC ---
Outpatient Therapy Plan of Care This is a Multidisciplinary Plan of Care that may contain components documented by all disciplines (PT, OT, and ST.) PT Problem 1 PT Problem #1 Knowledge Deficit PT Goal 1 Goal / Goal Update * independent with HEP 01-23-25 d/c goals were not addressed pt stopped attending therapy Target Visit 8 PT Problem 2 PT Problem #2 Pain PT Goal 1 Goal / Goal Update * pt report pain L LE at worst of 5/10 01-23-25 d/c goals were not addressed pt stopped attending therapy Target Visit 8 PT Problem 3 PT Problem #3 Impaired Strength PT Goal 1 Goal / Goal Update 1* increase strength of L hip and knee to 4/5- pt perform 20 reps of mat exercises 2* bilateral standing ankle PF x 10 reps without UE support 3* with 2 minute walking test, NO toe drag bilateral 4* with walking- good swing through on L with hip and knee flexion 01-23-25 d/c goals were not addressed pt stopped attending therapy Target Visit 8 PT Problem 4 PT Problem #4 Impaired Functional Mobility PT Goal 1 Goal / Goal Update 1* 2 minute walking test distance of 350' with cane to improve community ambulation 2* pt report NO falls 01-23-25 d/c goals were not addressed pt stopped attending therapy Target Visit 8 PT Problem 5 PT Problem #5 Impaired Flexibility PT Goal 1 Goal / Goal Update increase hamstring length to improve hip mobility with supine SLR 1* R 70' 2* L 50' 01-23-25 d/c goals were not addressed pt stopped attending therapy Target Visit 8
--- NOTE | 2025-01-23 14:24 | PTOPDC ---
Assessment and note entered by Kandi De La O, PT Assessment Status Discharge - Pt Not Present ICD-10 Condition Codes (PT) Pain in left hip M25.552,Pain in left knee M25.562 ,Difficulty Walking R26.2,Abnormalities of gait and mobility R26.9,Weakness R53.1 Other ICD-10 Condition Codes ( R29.898 other musculoskeletal system PT) Onset September 2024 Subjective Information pt was not seen this date. Assessment PT Clinical Summary Ruddy has received 4 PT sessions, from November 08 to . He called and canceled 3 appointments. And did not return for any further treatment. Discharge PT. The goals were not addressed. Plan of Care PT Services Indicated No
== END 2025-01-23 16:31 | disposition home or self-care (01) ==
LOC: ANHPT 11:15
PROVIDERS: PCP Nurse Practitioner; Visit Provider Orthopaedic Surgery
DX: R29.898 Other symptoms and signs involving the musculoskeletal system (principal); G81.90 Hemiplegia, unspecified affecting unspecified side
CPT/HCPCS: 97110; 97116; 97161; 97530

== ENCOUNTER 2024-12-15 08:37 | Outpatient (CLI) | payer MEDICARE, SELFPAY ==
--- NOTE | ~2024-12-15 | MR_ITS ---
MRI of the thoracic spine Clinical History: Back pain, left leg numbness Technique: Axial T2-weighted and gradient images, and sagittal T1-weighted, T2-weighted, and STIR ignacio ges were acquired. Findings: There is no fracture or subluxation of the thoracic spine. Vertebral bodies maintain normal height and alignment. No bone marrow signal reality seen. There is multilevel moderate degenerative disc narrowing throughout the mid thoracic spine. There is a focal left paracentral disc protrusion at T5-T6. There is a right paracentral disc extrusion at T6- T7, which may minimally compresses the right side of the spinal cord at this level. There is mild pos terior disc bulge at T7-T8. No other areas of canal stenosis or cord compression evident. Neural foramina appear preserved throug hout the thoracic spine. There is increased T2 signal with relatively low caliber cord at the T3 and T4 levels, compatible wit h chronic myelomalacia. Impression: Chronic myelomalacia with somewhat small caliber spinal cord and hyperintense T2 signal in the spinal cord at the T3 and T4 levels. Degenerative disc change predominantly at the mid thoracic spine, as detailed above, with left parace ntral disc protrusion at T5-T6, and right paracentral disc extrusion at T6-T7. Posterior disc bulge p resent at T7-T8. Reviewed, dictated and finalized at location . Impression: Chronic myelomalacia with somewhat small caliber spinal cord and hyperintense T 2 signal in the spinal cord at the T3 and T4 levels. Degenerative disc change predominantly at the mid thoracic spine, as detailed a jona, with left paracentral disc protrusion at T5-T6, and right paracentral dis c extrusion at T6-T7. Posterior disc bulge present at T7-T8.
--- NOTE | ~2024-12-15 | MR_ITS ---
MRI of the lumbar spine Clinical History: Back pain, left leg numbness Technique: Axial T2-weighted images, and sagittal T1-weighted, T2-weighted, and T2 fat-sat images wer e acquired. Findings: There is no fracture or subluxation of the lumbar spine. Visualized maintain normal height and alignment. No suspicious bone marrow signal abnormality seen. At L1-L2, there is no disc bulge or effusion. There is mild facet hypertrophy. No spinal canal stenos is or definite neural foraminal narrowing. At L2-L3, there is moderate degenerative distended. There is mild diffuse disc bulge and mild facet h ypertrophy. No spinal canal stenosis. There is moderate bilateral neural foraminal narrowing. At L3-L4, there is diffuse disc bulge and severe facet arthropathy, resulting in severe spinal canal stenosis/thecal sac compression. There is severe bilateral neural foraminal narrowing. At L4-L5, there is diffuse disc bulge with superimposed small central disc extrusion. There is severe facet arthropathy. There is severe spinal canal stenosis/thecal sac compression and severe bilateral neural foraminal compromise. At L5-S1, there is mild disc bulge and advanced facet arthropathy. No central canal stenosis. There i s severe bilateral neural foraminal compress. Paravertebral soft tissues are unremarkable. Impression: Severe degenerative spondylosis at L3-L4, L4-L5, and L5-S1, as detailed above. Moderate degenerative spondylosis at L2-L3. Reviewed, dictated and finalized at [facility]. Impression: Severe degenerative spondylosis at L3-L4, L4-L5, and L5-S1, as detailed above. Moderate degenerative spondylosis at L2-L3.
== END 2024-12-15 08:38 | disposition home or self-care (01) ==
LOC: MICIMG 08:38
PROVIDERS: PCP Internal Medicine; Visit Provider Orthopaedic Surgery
DX: R29.898 Other symptoms and signs involving the musculoskeletal system (principal); M62.838 Other muscle spasm; M54.16 Radiculopathy, lumbar region
CPT/HCPCS: 72146; 72148

== ENCOUNTER 2025-01-02 10:07 | Outpatient (CLI) | payer MEDICARE, SELFPAY ==
--- NOTE | ~2025-01-02 | MR_ITS ---
MRI of the cervical spine Clinical History: Radicular Technique: Axial T2-weighted and gradient images, and sagittal T1-weighted, T2-weighted, and STIR ignacio ges were acquired. Findings: There is no fracture or subluxation of the cervical spine. Vertebral bodies maintain normal height and alignment. No bone marrow signal reality seen. At C2-C3, there is no disc bulge or herniation. There is left facet arthropathy with mild left neural foraminal narrowing. Right neural foramen preserved. No canal stenosis or cord compression. At C3-C4, there is minimal disc osteophyte complex with bilateral facet arthropathy, left worse than right. Probable minimal left neural foraminal narrowing. Right neural foramen preserved. No canal walter nosis or cord compression. At C4-C5, there is disc osteophyte complex which minimally flattens the ventral cord. There is right neural foraminal narrowing and possible minimal left neural foraminal narrowing. At C5-C6, there is disc osteophyte complex which minimally flattens the ventral cord. There is bilate ral moderate to severe neural foraminal narrowing. At C6-C7, there is no disc bulge or herniation. No spinal canal stenosis, cord compression, or neural foraminal narrowing. No abnormal signal seen in the spinal cord. Paravertebral soft tissues are unremarkable. Impression: Moderate degenerative spondylosis at C3-C4, C4-C5, and C5-C6, as detailed above. Reviewed, dictated and finalized at [facility]. Impression: Moderate degenerative spondylosis at C3-C4, C4-C5, and C5-C6, as detailed above .
== END 2025-01-02 10:08 | disposition home or self-care (01) ==
LOC: GOSHIMG 10:07
PROVIDERS: PCP Neurological Surgery; Visit Provider Neurological Surgery
DX: M47.812 Spondylosis without myelopathy or radiculopathy, cervical region (principal)
CPT/HCPCS: 72141

== ENCOUNTER 2025-03-06 12:30 | Outpatient (RCR) | payer MEDICARE, SELFPAY ==
--- NOTE | 2025-01-30 10:07 | OPREHPOC ---
Outpatient Therapy Plan of Care This is a Multidisciplinary Plan of Care that may contain components documented by all disciplines (PT, OT, and ST.) PT Problem 1 PT Problem #1 Knowledge Deficit PT Goal 1 Goal / Goal Update Patient to demonstrate independence with HEP for improved self-reliance of symptom management. Target Visit 4 PT Problem 2 PT Problem #2 Pain PT Goal 1 Goal / Goal Update 1. Patient to decrease subjective reports of neck pain to <4/10 for improved ADL tolerance. 2. Patient to report an improvement in radiating symptoms by 50% to increase ability to perform ADLs. Target Visit 4 PT Problem 3 PT Problem #3 Impaired Balance PT Goal 1 Goal / Goal Update Patient to improve outcome measure score on the Tinetti from 14 to 19 points or greater to improve fall risk from high to moderate to increase safety with mobility. Target Visit 8 PT Problem 4 PT Problem #4 Impaired Range of Motion PT Goal 1 Goal / Goal Update 1. Patient to demonstrate an increase of cervical ext AROM with minimal c/o pain and 35 deg to improve the ability to shave. 2. Patient to demonstrate an increase of cervical rotation AROM SARAH to 45 deg to improve safety with driving. Target Visit 8
--- NOTE | 2025-01-30 10:07 | PTOPEVAL1 ---
Assessment and note entered by Mari Resendiz, PT Evaluation Information Assessment Status Evaluation ICD-10 Condition Codes (PT) Radiculopathy, cervical M54.13 Onset >5 years Subjective Information Pt is here for chronic neck pain evaluation today. He was told 5 year sago he would need surgery but then 2 years ago that surgery would not be helpful. He thinks his neck pain is getting worse the last couple of months. The pain starts at the base of his neck, radiating down both arms with neck movements and a hard time shaving. He is having some numbness and tingling in both of his hands but has a h/o carpal tunnel. At times he drives with his hand on his neck and it helps with the pain down his arm. He struggles with outside chores and they have someone at the house to care for these things. He is on disability and lives with his mother. Has done pain management with injections and temporary relief. Has to trial PT and follow up with MD in 2 months. Reported Pain Level Pain Score 6,2: Self Report Assessment PT Clinical Summary Pt is a 59 year old male who presents to physical therapy with a primary complaint of chronic neck pain worsening over the last 3 months. Pt demonstrates B shoulder flexion, abduction and external rotation weakness, pain reproduced with shoulder mobility but not neck movement this date, decreased mobility, abnormal posture, gait deficit, and decreased balance that limit their ability to perform ADLs. Pt will benefit from skilled physical therapy to address the above listed deficits and return to PLOF. HEP instructed and written handout provided, EX tolerated well with no adverse effects to note post-session. Pt was educated on importance of adherence to HEP. Pt was also educated on anatomy, prognosis, home modalities, and PT POC. Plan of Care Interventions Electrical Stimulation,Gait Training,Hot Pack/Cold Pack,Manual Therapy,Neuro Re-education,Patient/ Caregiver Education,Therapeutic Activities, Therapeutic Exercise,Self-Care/Home Management PT Services Indicated Yes Treatment Frequency and 2x/wk for 8 sessions Duration These treatments will address the objective and functional deficits as defined above. The patient will be advanced safely and appropriately in order for the patient to progress towards his/her prior level of function. Additional exercises will be introduced and as well as a comprehensive home exercise program upon discharge, if needed, ?to ensure carryover of functional gains achieved in the clinic. This treatment plan has been reviewed and agreement upon by the patient.
--- NOTE | 2025-02-15 13:03 | PCPTNOTE ---
No call no show, reason unknown. AKJose
--- NOTE | 2025-03-06 13:01 | PTOPDC ---
Assessment and note entered by Mari Resendiz, PT Evaluation Information Assessment Status Discharge ICD-10 Condition Codes (PT) Radiculopathy, cervical M54.13 Onset >5 years Subjective Information Pt was a neurologist earlier this month for a consult of his neck pain. They stated surgery should be a last resort and to trial injections with pain management. Pt wanting to see if he can get his injections covered by his insurance and hold PT. Overall, the pt reports feeling 30% improvement since first starting therapy. His pain is relatively unchanged but he thinks he understands how to stretch it better. He continues to have radiating pain down his shoulders, thinks it is improved by 30% at most. Reported Pain Level Pain Score 5,5: Self Report Assessment PT Clinical Summary Patient's condition has made little to no advancements in symptoms, mobility, strength, and functional tolerance to ADLs. Pt's PT goals remain unmet with little to no progress made towards them. Overall, equivocal response to therapy and pt wants to continue care with pain management at this time. Patient to DC from PT this date and continue with HEP as instructed for cervical mobility and muscle tightness. Pt to contact PT or PCP if questions or concerns arise. Plan of Care PT Services Indicated Yes
== END 2025-03-06 16:32 | disposition home or self-care (01) ==
LOC: ANHPT 12:30
PROVIDERS: PCP Neurological Surgery; Visit Provider Neurological Surgery
DX: M54.12 Radiculopathy, cervical region (principal); M54.13 Radiculopathy, cervicothoracic region
CPT/HCPCS: 97014; 97110; 97140; 97161; 97530; G0283